=== PATIENT | male | born 1970 | race Caucasian/White ===

== ENCOUNTER 2017-04-08 14:28 | Inpatient (IN) | payer OTHER ==
[~2017-04-08] VITALS: Ht 177.8 cm; Wt 116.1 kg
[2017-04-08] MEDS ORDERED: IV NS 0.9% 1,000 ML ONE (14:46)
[2017-04-08] MEDS ORDERED: IV SET PRIMARY 1 EA INFUS.SET MC ONE (14:46)
[2017-04-08] MEDS ORDERED: IV NS 0.9% 1,000 ML BAG IV ONE (15:00)
--- NOTE | 2017-04-08 15:00 | NUR ---
PT BIB [facility] C/O ALTERED MENTAL STATUS AND POSSIBLE OD. PT NOW A/OX3, S/P NARCAN CLEANING MAID. DOES NOT THINK HE OD'D ON MEDS DESPITE PRESENTATION AND GOOD RESPONSE TO NARCAN. RESP EVEN UNLABORED. SKIN WARM NONDIAPHORETIC. ISIDRO LOWER LEGS EDEMATOUS, WEEPING SEROUS FLUID, REDDENED. IN ER BED 16 ON MONITOR.
[2017-04-08 15:02] LABS: BASOPHILS # (AUTO) 0.1 /CMM (0.0-0.2); BASOPHILS % (AUTO) 1.1 % (0.0-2.0); EOSINOPHILS % (AUTO) 0.1 % (0.0-6.0); HEMATOCRIT 37 % (39-51); LYMPHOCYTES # (AUTO) 0.5 /CMM (0.8-4.8); LYMPHOCYTES % (AUTO) 7.2 % (20.0-44.0); MEAN CORPUSCULAR HEMOGLOBIN 29 PG (26.0-33.0); MEAN CORPUSCULAR HGB CONC 33 g/dl (31.0-36.0); MEAN CORPUSCULAR VOLUME 87 fL (80-96); MONOCYTES # (AUTO) 0.1 /CMM (0.1-1.30); MONOCYTES % (AUTO) 1.6 % (2.0-12.0); NEUTROPHILS # (AUTO) 5.6 /CMM (1.8-8.9); PLATELET COUNT (AUTO) 211 /CMM (150-450); RED BLOOD CELL COUNT(AUTO) 4.22 MIL/uL (4.5-6.0); WHITE BLOOD COUNT (AUTO) 6.3 K/uL (4.3-11.0)
[2017-04-08 15:13] LABS: CALCIUM, SERUM 8.3 mg/dL (8.5-10.1); CREATININE 2.8 mg/dL (0.6-1.3); POTASSIUM 3.6 mmol/L (3.5-5.1)
[2017-04-08 15:20] LABS: INR 6.12 (0.87-1.13)
[2017-04-08 15:22] LABS: TROPONIN I 0.214 ng/mL (0.00-0.056)
[2017-04-08] MEDS ORDERED: FURO40TA5 PO (15:37)
[2017-04-08] MEDS ORDERED: CARV6.25 PO (15:37)
[2017-04-08] MEDS ORDERED: METO5TAB7 PO (15:37)
[2017-04-08] MEDS ORDERED: POTA20TA83 PO (15:37)
[2017-04-08] MEDS ORDERED: ASPI81TA2 PO (15:37)
[2017-04-08 15:46] LABS: ALBUMIN 2.6 g/dL (3.4-5.0); BILIRUBIN,DIRECT 1.3 mg/dL (0.0-0.2)
[2017-04-08] MEDS ORDERED: ASPIRIN 325 MG TABLET PO ONE (16:00)
[2017-04-08] MEDS ORDERED: NALOXONE HCL 0.4 MG/ML AMPUL IV ONE (16:00)
[2017-04-08] MEDS ORDERED: NALOXONE HCL 0.4 MG/ML AMPUL ONE (16:35)
[2017-04-08] MEDS ORDERED: ASPIRIN 325 MG TABLET ONE (16:35)
--- NOTE | 2017-04-08 16:40 | NUR ---
REPORT GIVEN TO THE PRIMARY CARE NURSE; CONTINUE PLAN OF CARE. ACCEPTED BY BEKAH NOVA; ASA AND NARCAN GIVEN. SWALLOW EVAL NOT DONE - LETHARGIC
--- NOTE | 2017-04-08 16:44 | NUR ---
NURSING BEDSIDE SWALLOW SCREENING PERFORMED. WITH PT SITTING STRAIGHT UP, PT IS ABLE TO SWALLOW LIQUIDS AND PILLS WITHOUT DIFFICULTY.
[2017-04-08] MEDS ORDERED: IV NS 0.9% 1,000 ML IV PRN ×2 (16:48→18:33)
--- NOTE | 2017-04-08 16:50 | NUR ---
MS MIR RN RECEIVED PT. FROM ER NURSE. PT. IS A/O X1-2. WILL BEGIN ADMISSION PROCESS AND AWAIT FURTHER ORDERS FROM THE MD
[2017-04-08] MEDS ORDERED: ONDANSETRON HCL/PF 4 MG/2 ML VIAL IVP PRN (17:00)
[2017-04-08] MEDS ORDERED: ZOLPIDEM TARTRATE 5 MG TABLET PO PRN (17:00)
[2017-04-08] MEDS ORDERED: MAG HYDROX/AL HYDROX/SIMETH 30 ML UDC PO PRN (17:00)
[2017-04-08] MEDS ORDERED: Z GUARD REMEDY 2 OZ OINT TP PRN (17:00)
[2017-04-08] MEDS ORDERED: MAGNESIUM HYDROXIDE 30 ML UDC PO PRN (17:00)
[2017-04-08] MEDS: PANTOPRAZOLE 40 MG TABLET.DR PO SCH (17:00)
[2017-04-08] MEDS ORDERED: IV SET PRIMARY PUMP SET 1 EA INFUS.SET MC ONE (17:27)
[2017-04-08 18:49] VITALS: BP 98/45
[2017-04-08] MEDS ORDERED: PHYTONADIONE 5 MG TABLET PO ONE (19:00)
--- NOTE | 2017-04-08 19:07 | NUR ---
MS RN CLOSING NOTES PT. REMAINS A/O X1-2. PT IS RESPONSIVE TO NAME AND TOUCH. IV PRESENT ON LEFT HAND 18 G PATENT AND INTACT INFUSING NS @ 125ML/HR. PT TOLERATING INFUSION WELL. PT IS ON 2 L VIA NC AND SATING WELL @ 98%. BREATHING IS EVEN AND UNLABORED. BED IN LOW LOCKED POSITION, SIDE RAILS UP X3, CALL LIGHT WITHIN REACH. BED ALARM ON. ALL NEEDS MET AND ANTICIPATED FOR. ALL ORDERS CARRIED OUT ACCORDINGLY. WILL ENDORSE TO NIGHTSHIFT NURSE FOR ANGUS
--- NOTE | 2017-04-08 19:30 | NUR ---
TELE/RN NOTES RECEIVED PT. LYING IN BED RESTING. PT. IS EASILY AROUSABLE TO NAME AND TOUCH. AWAKE, ALERT AND ORIENTED X 2. BREATHING EVEN AND UNLABORED ON 2LPM O2 VIA NC. NO SOB, RESPIRATORY DISTRESS OR COMPLAINTS OF PAIN NOTED AT THIS TIME. PT. WITH RIGHT HAND 18 GAUGE PERIPHERAL IV PRESENT, PATENT AND INTACT ADMINISTERING TO PT. NS @ 125 ML/HR. BED IN LOWEST POSITION, SIDE RAILS UP X3, CALL LIGHT WITHIN REACH, WILL CONTINUE TO MONITOR. Addendum: 04/08/17 at 2141 by MIKE SOLITARIO RN PT. WITH EXTERNAL B2B ACCOUNT EXECUTIVE PRESENT AND INTACT. CURRENT RHYTHM = SINUS TACHYCARDIA HR 105.
[2017-04-08 20:00] VITALS: BP 105/64
[2017-04-08] MEDS ORDERED: PHYTONADIONE INJ 10 MG/1 ML AMPUL SQ ONE (20:00)
[2017-04-08 20:30] LABS: SERUM AMMONIA 47 umol/L (11-32)
[2017-04-08 20:35] LABS: ACETAMINOPHEN 0 ug/ml (10-30)
--- NOTE | 2017-04-08 20:45 | NUR ---
TELE/RN NOTES PT. REFUSING LOMAX CATHETER INSERTION. PT. STATES "I DON'T NEED IT. I CAN USE A URINAL WHEN I NEED TO PEE, I DON'T WANT THAT THING INSIDE ME". EDUCATED PT. ON IMPORTANCE OF MONITORING INTAKE AND OUTPUT AND NEED FOR URINE SAMPLE FOR LABWORK. PT. CONTINUES TO REFUSE. WILL PROVIDE PT. WITH URINAL. WILL CONTINUE TO MONITOR.
[2017-04-09] VITALS: BP 112/68
--- NOTE | 2017-04-09 00:03 | NUR ---
TELE/RN NOTES NOTIFIED DR. SAVAGE PT. ELEVATED TROPONIN 0.339 AND ELEVATED AMMONIA 47. ALSO NOTIFIED MD THAT PT. REFUSING LOMAX CATHETER AND DUE TO PT. SCROTAL SWELLING UNABLE TO PLACE CONDOM CATHETER REMAIN UNABLE TO RETRIEVE URINE FOR DRUG SCREEN. IN ADDITION NOTIFIED DR. SAVAGE PT. MED RECON IS IN AND NOT REVIEWED BY AN MD. PER DR. SAVAGE NO NEW ORDERS AT THIS TIME, CONTINUE TO MONITOR. WILL CONTINUE TO MONITOR. Addendum: 04/09/17 at 0010 by MIKE SOLITARIO RN PT. IS IN STABLE CONDITION. SINUS RHYTHM HR 99. NO SOB, RESPIRATORY DISTRESS OR COMPLAINTS OF CHEST PAIN NOTED AT THIS TIME.
[2017-04-09 04:00] VITALS: BP 97/60
--- NOTE | 2017-04-09 06:48 | NUR ---
TELE/RN NOTES NOTIFIED DR. SAVAGE PT. IS VERY AGITATED AND NONCOMPLIANT. PT. THREATENING TO HURT STAFF. PT. TRYING TO GET OUT OF BED AND IS UNSTEADY. PER DR. SAVAGE NEW ORDER: PSYCH CONSULT. NO NEW MEDICATION ORDERS AT THIS TIME PT. IS NOT COMBATIVE AND MD DOES NOT WANT TO ORDER ANY MEDICATIONS BECAUSE PT. IS ASSUMED TO HAVE OVERDOSED ON DRUGS. PT. REMAINS UNABLE TO RETRIEVE URINE SAMPLE FOR DRUG SCREEN AT THIS TIME DUE TO PT. SCROTAL SWELLING. DR. SAVAGE AWARE. WILL CARRY OUT ORDER. WILL CONTINUE TO MONITOR.
--- NOTE | 2017-04-09 07:05 | NUR ---
TELE/RN NOTES PT. LYING IN BED RESTING. BREATHING EVEN AND UNLABORED ON 2LPM O2 VIA NC. NO SOB, RESPIRATORY DISTRESS OR COMPLAINTS OF PAIN NOTED AT THIS TIME. NO COMPLAINTS OF CHEST PAIN NOTED AT THIS TIME AND THROUGHOUT SHIFT. PT. WITH EXTERNAL COT ASSEMBLER PRESENT AND INTACT. CURRENT RHYTHM = SINUS TACHYCARDIA HR 101. PT. WITH RIGHT HAND 22 GAUGE PERIPHERAL IV PRESENT, PATENT AND INTACT ADMINISTERING TO PT. NS @ 125 ML/HR. ALL PT. NEEDS MET. PT. HAS BED IN LOWEST POSITION, SIDE RAILS UP X3, CALL LIGHT WITHIN REACH, WILL ENDORSE TO DAYSHIFT NURSE FOR CONTINUITY OF CARE.
--- NOTE | 2017-04-09 07:10 | NUR ---
FUNCTIONAL TESTER TYPEWRITERS NOTES PATIENT IN BED, ASLEEP BUT EASILY AROUSABLE, NO S/SX OF DISTRESS, NO EPISODE OF AGITATION AT THIS TIME, NO S/SX OF PAIN NOTED, SCROTAL SWELLING OBSERVED, PIV PATENT AND INTACT WITH NS RUNNING AT 125ML/HR, ALL NEEDS ATTENDED, CALL LIGHT WITHIN REACH, WILL CONTINUE TO MONITOR.
[2017-04-09] MEDS: PANTOPRAZOLE 40 MG TABLET.DR PO SCH (07:30)
[2017-04-09 08:00] VITALS: BP 122/75
[2017-04-09 08:52] LABS: ALBUMIN 2.5 g/dL (3.4-5.0); BILIRUBIN,TOTAL 3.6 mg/dL (0.2-1.0); CREATININE 2.9 mg/dL (0.6-1.3); MAGNESIUM 2.1 mg/dL (1.8-2.4); PHOSPHORUS 7.1 mg/dL (2.5-4.9); POTASSIUM 3.9 mmol/L (3.5-5.1); TOTAL PROTEIN, SERUM 6.2 g/dL (6.4-8.2)
[2017-04-09 08:56] LABS: BASOPHILS % (AUTO) 0.1 % (0.0-2.0); HEMATOCRIT 40 % (39-51); HEMOGLOBIN 12.9 g/dL (13.5-17.5); LYMPHOCYTES # (AUTO) 0.4 /CMM (0.8-4.8); LYMPHOCYTES % (AUTO) 8.3 % (20.0-44.0); MEAN CORPUSCULAR HEMOGLOBIN 29 PG (26.0-33.0); MEAN CORPUSCULAR HGB CONC 33 g/dl (31.0-36.0); MEAN CORPUSCULAR VOLUME 88 fL (80-96); MONOCYTES # (AUTO) 0.2 /CMM (0.1-1.30); MONOCYTES % (AUTO) 4.3 % (2.0-12.0); NEUTROPHILS % (AUTO) 87.3 % (43.0-81.0); PLATELET COUNT (AUTO) 229 /CMM (150-450); RDW COEFFICIENT OF VARIATION 17.5 (11.5-15.0); RED BLOOD CELL COUNT(AUTO) 4.53 MIL/uL (4.5-6.0); WHITE BLOOD COUNT (AUTO) 4.6 K/uL (4.3-11.0)
--- NOTE | 2017-04-09 09:00 | NUR ---
HOSPITAL RECEPTIONIST NOTES PATIENT WAS SEEN AND EXAMINED BY DR. GODFREY, LOMAX CATHETER INSERTED WITH YELLOW URINE OUTPUT, UA SAMPLE OBTAINED AND SENT TO LAB, PATIENT IS LETHARGIC, DR. GODFREY AND FAROOQ AWARE, VITAL SIGNS STABLE, RESPONSIVE TO VERBAL AND TACTILE STIMULI , PER DR. GODFREY D/C FLUIDS. ORDER NOTED AND CARRIED OUT, CALL LIGHT WITHIN REACH, WILL CONTINUE TO MONITOR.
[2017-04-09] MEDS: FUROSEMIDE 40 MG/4 ML VIAL IV SCH (09:24)
[2017-04-09 10:40] LABS: BAND % (MANUAL) 46 % (0.0-5.0); LYMPHOCYTES % (MANUAL) 9 % (16-48); METAMYELOCYTES % 4 % (0-0); MONOCYTES % (MANUAL) 6 % (0-11.0); MYELOCYTES % 10 % (0-0); NEUTROPHILS % (MANUAL) 25 (42-76)
[2017-04-09 12:12] VITALS: BP 105/61
[2017-04-09] MEDS: NALOXONE HCL 0.4 MG/ML AMPUL IV PRN (12:24)
[2017-04-09] MEDS ORDERED: LACTULOSE 10 G/15 ML UDC (PYXIS) PO PRN (12:30)
--- NOTE | 2017-04-09 12:30 | NUR ---
TRANSACTIONAL ATTORNEY NOTES PATIENT SEEN BY DR. WESTON AND INSTRUCTED TO GIVE NARCAN X1 DOSE NOW, PATIENT HAS A PRN ORDER. NARCAN GIVEN.
--- NOTE | 2017-04-09 13:44 | NUR ---
SUPERVISOR FORMING DEPARTMENT NOTES PATIENT IN BED, ALERT AND ORIENTED X3, VERBALLY RESPONSIVE, ASKING FOR NORCO FOR PAIN AND FOOD, PAGED DR. GODFREY AND RECEIVED A CALL BACK, RELAYED DR. KEENE'S MESSAGE, PATIENT IS ON ACUTE WITHDRAWAL AT THIS TIME, NO PSYCH MEDICATIONS ORDERED, PER DR. GODFREY OK, ORDERED REGULAR DIET, ORDER NOTED AND CARRIED OUT. CALL LIGHT WITHIN REACH, FLUIDS GIVEN, PER PATIENT HE IS THIRSTY, NEEDS ATTENDED AND MET, WILL CONTINUE TO MONITOR.
[2017-04-09 15:28] LABS: APPEARANCE,URINE CLEAR (CLEAR); BILIRUBIN,URINE NEGATIVE (NEGATIVE); BLOOD, URINE 3+ Ery/uL (NEGATIVE); COLOR,URINE YELLOW (YELLOW); KETONES,URINE NEGATIVE (NEGATIVE); LEUKOCYTE ESTERASE ,URINE NEGATIVE (NEGATIVE); NITRITE, URINE NEGATIVE (NEGATIVE); PH,URINE 5.5 (5.0-8.0); PROTEIN,URINE TRACE mg/dl (NEGATIVE); UGLUCOSE NEGATIVE (NEGATIVE); UROBILINOGEN,URINE 0.2 EU/dL (0.2)
[2017-04-09 15:38] LABS: CREATININE, URINE 69.3 MG/DL (30.0-125.0); URINE SODIUM, RANDOM < 5 mmol/l (40-220); URINE TOTAL PROTEIN 53.9 mg/dL (0-11.9)
[2017-04-09 15:40] LABS: BACTERIA,URINE None seen /HPF (None Seen); SQUAMOUS EPITHELIAL CELL,UR Few /HPF (None Seen); WBC,URINE 0-2 /HPF (0-3)
[2017-04-09 16:00] VITALS: BP 96/64
--- NOTE | 2017-04-09 19:00 | NUR ---
BOILING OFF WINDER NOTES PATIENT IS INTERMITTENTLY SLEEPING, AROUSABLE TO NAME AND TOUCH, PATIENT REFUSED ADL CARE, REFUSED TO MOVE LEGS, PATIENT IS SCREAMING "LEAVE ME ALONE, LEAVE ME ALONE,' CHARGE NURSE MADE AWARE, PATIENT IS CURRENTLY ON O2 AT 5LPM VIA NC, SPO2 92-93%, HEAD OF BED ELEVATED, PATIENT IS A MOUTH BREATHER AND WOULD ENCOURAGE PATIENT TO TAKE DEEP BREATHS THROUGH THE NOSE, ALSO TRIED TO CHANGE TO A SIMPLE MASK BUT PATIENT WOULD REMOVE THE MASK, NO SHORTNESS OF BREATH NOTED, CALL LIGHT WITHIN REACH, WILL ENDORSE TO PATIENT ACCESS COORDINATOR FOR ANGUS.
--- NOTE | 2017-04-09 19:30 | NUR ---
RN OPEN NOTES RECEIVED PATIENT RESTING IN BED, EASILY AROUSABLE TO NAME. A/O X2. NO SIGNS OF DISTRESS OR DISCOMFORT. ON 5LPM O2 VIA NC AND SATING 98%, PATIENT IS REFUSING SIMPLE MASK. IV ACCESS IN R HAND PATENT AND INTACT, NO SIGNS OF REDNESS OR INFILTRATION. ON TELE MONITORING WITH ST 102 NOTED. BED IN LOW LOCKED POSITION WITH SIDE RAILS X3. CALL LIGHT WITHIN REACH. WILL CONTINUE TO MONITOR. Addendum: 04/09/17 at 2302 by KYAW DECKER RN PATIENT HAS F/C INTACT, WITH CLEAR OUSMANE FLUID NOTED.
[2017-04-09 20:00] VITALS: BP 100/58
[2017-04-09 20:41] LABS: EOSINOPHIL,URINE None Seen
[2017-04-10] VITALS (8 sets, daily range): BP systolic 90–115; BP diastolic 50–65
[2017-04-10 07:16] LABS: EOSINOPHILS % (AUTO) 0.1 % (0.0-6.0); HEMATOCRIT 35 % (39-51); HEMOGLOBIN 11.5 g/dL (13.5-17.5); LYMPHOCYTES # (AUTO) 0.2 /CMM (0.8-4.8); LYMPHOCYTES % (AUTO) 5.7 % (20.0-44.0); MEAN CORPUSCULAR HEMOGLOBIN 29 PG (26.0-33.0); MEAN CORPUSCULAR HGB CONC 33 g/dl (31.0-36.0); MEAN CORPUSCULAR VOLUME 88 fL (80-96); MONOCYTES # (AUTO) 0.1 /CMM (0.1-1.30); MONOCYTES % (AUTO) 1.6 % (2.0-12.0); NEUTROPHILS # (AUTO) 3.5 /CMM (1.8-8.9); NEUTROPHILS % (AUTO) 92.6 % (43.0-81.0); PLATELET COUNT (AUTO) 170 /CMM (150-450); RDW COEFFICIENT OF VARIATION 17.5 (11.5-15.0); WHITE BLOOD COUNT (AUTO) 3.8 K/uL (4.3-11.0)
--- NOTE | 2017-04-10 07:23 | NUR ---
RN CLOSING NOTES PATIENT AWAKE IN BED. A/O X2. NO SIGNS OF DISTRESS OR DISCOMFORT. ON 5LPM O2 VIA NC AND SATING 98%, PATIENT IS REFUSING SIMPLE MASK. IV ACCESS IN R HAND PATENT AND INTACT, NO SIGNS OF REDNESS OR INFILTRATION. ON TELE MONITORING WITH SR 98 NOTED. ALL NEEDS MET. NO SIGNIFICANT CHANGES THROUGH THE NIGHT. BED IN LOW LOCKED POSITION WITH SIDE RAILS X3. CALL LIGHT WITHIN REACH. ENDORSED TO AM SHIFT FOR ANGUS.
[2017-04-10 07:36] LABS: APPEARANCE,URINE CLEAR (CLEAR); BILIRUBIN,URINE 1+ (NEGATIVE); BLOOD, URINE 3+ Ery/uL (NEGATIVE); COLOR,URINE YELLOW (YELLOW); KETONES,URINE NEGATIVE (NEGATIVE); LEUKOCYTE ESTERASE ,URINE NEGATIVE (NEGATIVE); NITRITE, URINE NEGATIVE (NEGATIVE); PROTEIN,URINE TRACE mg/dl (NEGATIVE); UGLUCOSE NEGATIVE (NEGATIVE)
--- NOTE | 2017-04-10 07:50 | NUR ---
TAX PROCESSOR NOTES PATIENT IN BED, AWAKE AND ALERT, SCREAMING HE WANTS TO GO TO THE RESTROOM, WAS OFFERED A BEDPAN BUT REFUSES, PATIENT IS INSISTING OF AMBULATING BUT PATIENT IS STILL GROGGY, ENCOURAGED PATIENT TO USE BEDPAN FOR SAFETY REASONS, HIS LEGS ARE TOO WEAK, PATIENT THEN WENT BACK TO SLEEP, SAFETY MEASURES IN PLACED, CALL LIGHT WITHIN REACH, WILL CONTINUE TO MONITOR.
[2017-04-10 07:58] LABS: CREATININE, URINE 65.2 MG/DL (30.0-125.0); URINE SODIUM, RANDOM < 5 mmol/l (40-220)
[2017-04-10 08:08] LABS: BACTERIA,URINE Rare /HPF (None Seen); SQUAMOUS EPITHELIAL CELL,UR Rare /HPF (None Seen); WBC,URINE 0-2 /HPF (0-3)
[2017-04-10] MEDS: FUROSEMIDE 40 MG/4 ML VIAL IV SCH (08:32)
[2017-04-10] MEDS: PANTOPRAZOLE 40 MG TABLET.DR PO SCH (08:32)
[2017-04-10 09:00] LABS: ALBUMIN 1.9 g/dL (3.4-5.0); CREATININE 1.9 mg/dL (0.6-1.3); MAGNESIUM 2.2 mg/dL (1.8-2.4); PHOSPHORUS 4.5 mg/dL (2.5-4.9); TOTAL PROTEIN, SERUM 5.5 g/dL (6.4-8.2)
[2017-04-10] MEDS ORDERED: CLONIDINE HCL 0.1 MG TABLET PO PRN (09:00)
[2017-04-10] MEDS ORDERED: FEE PK DOSING 1 MIN EA MC ONE (10:57)
[2017-04-10] MEDS ORDERED: VANCOMYCIN 1.25 GM in IV D5W 500 ML IV SCH (11:00)
[2017-04-10] MEDS ORDERED: SECONDARY IV SET 1 EA INFUS.SET MC ONE (11:07)
--- NOTE | 2017-04-10 12:00 | NUR ---
TEXTILE MACHINE MECHANIC NOTES PATIENT SEEN BY DR. KEENE, RECEIVED NEW ORDERS, ORDERS NOTED AND CARRIED OUT, PATIENT IS INTERMITTENTLY SLEEPING AND SCREAMING, ASKING FOR WATER, AND REPOSITIONING, BUT WHEN PATIENT WILL BE TURNED, HE WOULD CURSE AT STAFF AND REFUSES TO MOVE LEGS. O2 AT 5LPM VIA NC, OBSERVED TO BE REMOVING NASAL CANNULA AT TIMES, RE-EDUCATED, EXPLAINED RISKS AND BENEFITS, PER PATIENT, "I DONT CARE". ALL NEEDS ATTENDED, CALL LIGHT WITHIN REACH, WILL CONTINUE TO MONITOR.
[2017-04-10 12:24] LABS: CREATINE KINASE MB 59.8 ng/mL (0-3.6)
[2017-04-10 12:59] LABS: BAND % (MANUAL) 30 % (0.0-5.0); LYMPHOCYTES % (MANUAL) 9 % (16-48); METAMYELOCYTES % 2 % (0-0); MONOCYTES % (MANUAL) 3 % (0-11.0); MYELOCYTES % 3 % (0-0); NEUTROPHILS % (MANUAL) 53 (42-76)
[2017-04-10 13:07] LABS: IMMUNOGLOBULIN A, SERUM 242 mg/dL (90-386); IMMUNOGLOBULIN G, SERUM 964 mg/dL (700-1600); IMMUNOGLOBULIN M, SERUM 50 mg/dL (20-172)
[2017-04-10 13:51] LABS: EOSINOPHIL,URINE None Seen
--- NOTE | 2017-04-10 14:30 | NUR ---
MECHANIC CHIEF NOTES PATIENT SEEN BY DR. WESTON, WANTS TO RELAY TO DR. GODFREY, SHE RECOMMENDS IV FLUIDS DUE TO ELEVATED TOTAL CK AND CKMB, ALSO RECOMMENDING TO GIVE NARCAN X1 NOW, PAGED DR. GODFREY, WAITING FOR A CALL BACK.
[2017-04-10] MEDS: SOD FERRIC GLUC 125 MG in IV NS 0.9% 100 ML IV SCH (14:33)
[2017-04-10] MEDS ORDERED: LACTULOSE 10 G/15 ML UDC (PYXIS) PO PRN (15:00)
--- NOTE | 2017-04-10 15:38 | NUR ---
RUG DYER HELPER NOTES RECEIVED A CALL FROM DR. GODFREY, RELAYED DR. WESTON'S MESSAGE OF RECOMMENDATION FOR IV FLUIDS, PER DR. GODFREY PATIENT HAS CHF, NO FLUIDS ORDERED AT THIS TIME, AND STATED ITS OK TO GIVE NARCAN, IF DR. WESTON RECOMMENDED IT.
[2017-04-10 16:08] LABS: INR 1.52 (0.87-1.13); PROTHROMBIN TIME 16.7 SECS (9.5-12.7)
--- NOTE | 2017-04-10 16:09 | NUR ---
BREAKFAST MANAGER NOTES RELAYED LACTIC ACID RESULT TO DR. WESTON, PER MD, WAIT FOR CHEST X-RAY RESULT THEN CALL ME BACK, AND CALL DR. GODFREY LATER TOO.
[2017-04-10] MEDS: NALOXONE HCL 0.4 MG/ML AMPUL IV PRN (16:36)
--- NOTE | 2017-04-10 18:28 | NUR ---
EXPORT SPECIALIST NOTES CALLED DR. WESTON AND RELAYED LACTIC ACID RESULT AND CHEST X-RAY RESULT, NO NEW ORDER AT THIS TIME. PATIENT IN BED, INTERMITTENTLY SLEEPING, REMOVES NASAL CANNULA, NO S/SX OF SOB OR DISTRESS NOTED, EXPLAINED RISKS AND BENEFITS, REFUSES ADL CARE, WILL OFFER AGAIN, EXPLAINED RISKS AND BENEFITS FOR SKIN MANAGEMENT, PIV ON RIGHT HAND PATENT AND INTACT, SAFETY MEASURES IN PLACED, CALL LIGHT WITHIN REACH, WILL CONTINUE TO MONITOR.
--- NOTE | 2017-04-10 19:20 | NUR ---
RN OPEN NOTES RECEIVED PATIENT RESTING IN BED, EASILY AROUSABLE TO NAME. A/O X2. NO SIGNS OF DISTRESS OR DISCOMFORT. ON 5LPM O2 VIA NC AND SATING WELL. IV ACCESS IN R HAND PATENT AND INTACT, NO SIGNS OF REDNESS OR INFILTRATION. ON TELE MONITORING WITH ST105 NOTED. HAS F/C INTACT AND PATENT WITH CLEAR OUSMANE FLUID NOTED. BED IN LOW LOCKED POSITION WITH SIDE RAILS X3. CALL LIGHT WITHIN REACH. WILL CONTINUE TO MONITOR.
--- NOTE | 2017-04-10 19:47 | NUR ---
RN NOTES DR. SAVAGE PAGED REGARDING CRITICAL LAB VALUE. AWAITING CALL BACK. WILL CONTINUE TO MONITOR.
--- NOTE | 2017-04-10 20:05 | NUR ---
RN NOTES INFORMED DR. SAVAGE OF CRITICAL LAB VALUE, LACTIC ACID 2.7. NEW ORDERS GIVEN. WILL CARRYOUT AND CONTINUE TO MONITOR.
[2017-04-10] MEDS ORDERED: IV NS 0.9% 1,000 ML IV ONE (20:30)
[2017-04-10] MEDS: QUETIAPINE FUMARATE 25 MG TABLET PO PRN (20:44)
[2017-04-10] MEDS: MUPIROCIN OINT 2% 22 GM TUBE SCH (21:31)
[2017-04-10] MEDS ORDERED: PIPERACILLIN /TAZOBACTAM 3.375 G VIAL IV ONE (21:56)
[2017-04-10] MEDS ORDERED: IV D5W 50 ML IV ONE (21:57)
[2017-04-10] MEDS ORDERED: IV NS 0.9% 1,000 ML BAG IV PRN (22:00)
[2017-04-10] MEDS ORDERED: PIPERACILLIN /TAZOBACTAM 3.375 G in IV D5W 50 ML IV SCH (22:00)
[2017-04-10] MEDS ORDERED: HEPARIN SODIUM, PORCINE 5000 UNITS/1 ML VIAL SQ SCH (23:30)
[2017-04-11] VITALS (7 sets, daily range): BP systolic 90–100; BP diastolic 50–61
[2017-04-11] MEDS ORDERED: SECONDARY IV SET 1 EA INFUS.SET MC ONE ×2 (00:33→14:27)
[2017-04-11] MEDS ORDERED: IV NS 0.9% 1,000 ML ONE ×2 (00:48→03:03)
--- NOTE | 2017-04-11 02:50 | NUR ---
RN NOTES INFORMED DR. SAVAGE OF CRITICAL LAB VALUE, LACTIC ACID 3.0. NEW ORDERS GIVEN. WILL CARRYOUT AND CONTINUE TO MONITOR.
[2017-04-11] MEDS: QUETIAPINE FUMARATE 25 MG TABLET PO PRN ×2 (02:58→19:56)
[2017-04-11] MEDS ORDERED: IV NS 0.9% 1,000 ML IV ONE (03:00)
[2017-04-11] MEDS: VANCOMYCIN 1.25 GM in IV D5W 500 ML IV SCH ×2 (05:47→23:19)
--- NOTE | 2017-04-11 07:15 | NUR ---
hospital secretary initial notes Received patient in bed, awake, head of bed elevated, no SOB or distress noted. on room air saturation of 92%. Sitter at bedside for constant monitoring. IV intact and patent with IVF infusing well. Aquino in placed attached to drainage bag. On tele monitor ST heart rate of 107. Alert and oriented x 1, with confusion. Isolation for MRSA nares. Kept patient clean and comfortable in bed, call light with in patient reach, will continue to monitor accordingly.
--- NOTE | 2017-04-11 07:29 | NUR ---
RN CLOSING NOTES PATIENT RESTING IN BED EASILY AROUSABLE TO NAME. A/O X2. NO SIGNS OF DISTRESS OR DISCOMFORT. ON 5LPM O2 VIA NC AND SATING 98%, PATIENT IS REFUSING SIMPLE MASK. IV ACCESS IN R HAND WITH VANCO CURRENTLY INFUSING PATENT AND INTACT, NO SIGNS OF REDNESS OR INFILTRATION. ON TELE MONITORING WITH ST 106 NOTED. HAS F/C INTACT, WITH CLEAR OUSMANE FLUID NOTED. ALL NEEDS MET. NO SIGNIFICANT CHANGES THROUGH THE NIGHT. BED IN LOW LOCKED POSITION WITH SIDE RAILS X3. CALL LIGHT WITHIN REACH. ENDORSED TO AM SHIFT FOR ANGUS.
[2017-04-11 08:07] LABS: ALBUMIN 1.6 g/dL (3.4-5.0); BILIRUBIN,DIRECT 3.2 mg/dL (0.0-0.2); BILIRUBIN,TOTAL 4.7 mg/dL (0.2-1.0); CALCIUM, SERUM 7.9 mg/dL (8.5-10.1); CREATININE 1.4 mg/dL (0.6-1.3); POTASSIUM 3.8 mmol/L (3.5-5.1); TOTAL PROTEIN, SERUM 5.2 g/dL (6.4-8.2)
[2017-04-11 08:14] LABS: INR 1.35 (0.87-1.13); PROTHROMBIN TIME 14.7 SECS (9.5-12.7)
[2017-04-11] MEDS ORDERED: IV NS 0.9% 1,000 ML IV PRN (08:30)
[2017-04-11] MEDS ORDERED: PIPERACILLIN /TAZOBACTAM 3.375 G in IV D5W 50 ML IV SCH (09:00)
--- NOTE | 2017-04-11 09:00 | NUR ---
process treater notes Informed Dr. Gonzales regarding patient BP 90/61 and made aware of patient getting scheduled lasix IVP and per MD to hold medication. All orders carried out and noted. Will continue to monitor patient accordingly.
[2017-04-11] MEDS: MUPIROCIN OINT 2% 22 GM TUBE SCH ×2 (09:32→20:32)
[2017-04-11] MEDS: PANTOPRAZOLE 40 MG TABLET.DR PO SCH (09:32)
[2017-04-11] MEDS: FUROSEMIDE 40 MG/4 ML VIAL IV SCH (09:32)
[2017-04-11 10:33] LABS: *SPE A/G RATIO 0.9 (0.7-1.7); *SPE ALBUMIN 2.8 g/dL (2.9-4.4); *SPE ALPHA-1-GLOBULIN 0.4 g/dL (0.0-0.4); *SPE ALPHA-2-GLOBULIN 0.8 g/dL (0.4-1.0); *SPE GLOBULIN, TOTAL 3.2 g/dL (2.2-3.9); *SPE M-SPIKE Not Observed g/dL (Not Observed)
[2017-04-11] MEDS: PIPERACILLIN /TAZOBACTAM 3.375 G in IV D5W 50 ML IV SCH ×2 (12:14→18:22)
[2017-04-11] MEDS: SOD FERRIC GLUC 125 MG in IV NS 0.9% 100 ML IV SCH (14:24)
[2017-04-11 15:37] LABS: EOSINOPHILS # (AUTO) 0.1 /CMM (0.0-0.7); EOSINOPHILS % (AUTO) 0.6 % (0.0-6.0); HEMATOCRIT 31 % (39-51); HEMOGLOBIN 10.4 g/dL (13.5-17.5); LYMPHOCYTES # (AUTO) 0.3 /CMM (0.8-4.8); LYMPHOCYTES % (AUTO) 3.7 % (20.0-44.0); MEAN CORPUSCULAR HEMOGLOBIN 28 PG (26.0-33.0); MEAN CORPUSCULAR HGB CONC 33 g/dl (31.0-36.0); MEAN CORPUSCULAR VOLUME 85 fL (80-96); MONOCYTES # (AUTO) 0.3 /CMM (0.1-1.30); MONOCYTES % (AUTO) 3.2 % (2.0-12.0); NEUTROPHILS % (AUTO) 92.5 % (43.0-81.0); PLATELET COUNT (AUTO) 161 /CMM (150-450); RED BLOOD CELL COUNT(AUTO) 3.69 MIL/uL (4.5-6.0); WHITE BLOOD COUNT (AUTO) 8.7 K/uL (4.3-11.0)
[2017-04-11 15:58] LABS: ALBUMIN 1.7 g/dL (3.4-5.0); BILIRUBIN,TOTAL 4.8 mg/dL (0.2-1.0); CALCIUM, SERUM 7.9 mg/dL (8.5-10.1); CREATININE 1.4 mg/dL (0.6-1.3); POTASSIUM 3.3 mmol/L (3.5-5.1); TOTAL PROTEIN, SERUM 5.4 g/dL (6.4-8.2)
[2017-04-11 16:19] LABS: BAND % (MANUAL) 34 % (0.0-5.0); EOSINOPHILS % (MANUAL) 1 % (0-4); LYMPHOCYTES % (MANUAL) 11 % (16-48); METAMYELOCYTES % 1 % (0-0); MONOCYTES % (MANUAL) 8 % (0-11.0); MYELOCYTES % 1 % (0-0); NEUTROPHILS % (MANUAL) 44 (42-76)
[2017-04-11] MEDS ORDERED: POTASSIUM CHLORIDE 20 MEQ TAB.PRT.SR PO ONE (19:00)
--- NOTE | 2017-04-11 19:19 | NUR ---
research investigator closing notes All needs provided, attended, and anticipated. Kept patient clean and comfortable in bed, call light with in patient reach, on tele monitor Afib heart rate of 94, no complaint of pain or discomfort noted. Sitter at bedside for constant monitoring. Endorsed to next shift RN to continue care.
--- NOTE | 2017-04-11 19:30 | NUR ---
TELE INSOLE AND HEEL STIFFENER INITIAL NOTES RECEIVED PT IN BED SCREAMING ON AND OFF TRIED TO GET UP , SPOKE TO HIM AND TRIED TO RE-ORIENTED HIM WHERE HE AT. NO SIGNS OF ANY ACUTE DISTRESS BUT NOTICED HE'S ALWAYS TOUCHING AND HOLDING HIS SWOLLEN SCROTUM. I ASKED HIM IF HE'S ON PAIN HE SHOUTED "YES". HE'S ON IVF NS AT 75ML/HR ON HIS RIGHT HAND AND LOMAX TO GRAVITY. TELE SINUS TACH HEART RATE 112 PER MONITOR. KEPT HIM SAFE AND COMFORTABLE AT ALL TIMES. FALL AND ISOLATION PRECAUTION IMPLEMENTED AND OBSERVED. WILL CONTINUE TO MONITOR.
[2017-04-11] MEDS: ACETAMINOPHEN 325 MG TABLET PO PRN (20:00)
--- NOTE | 2017-04-11 20:00 | NUR ---
CONTRACT CONSULTANT/NOTES TYLENOL 650 MG PO GIVEN FOR HIS PAIN AND SEROQUEL TO CALMED HIM DOWN. PT TOLERATED WELL NO ASPIRATION NOTED. SPONGES BATH ALSO RENDERED WITH THE HELPED OF ANOTHER INSOLE ROUNDER FOR PT SAFETY AND KEPT HIM COMFORTABLE AT ALL TIMES. WILL CONTINUE TO MONITOR.
[2017-04-11] MEDS: HEPARIN SODIUM, PORCINE 5000 UNITS/1 ML VIAL SQ SCH (20:35)
[2017-04-11] MEDS: LORAZEPAM 1 MG TABLET PO PRN (21:47)
--- NOTE | 2017-04-11 21:47 | NUR ---
CODING TEAM LEAD NOTES PT AWAKE AND VERY ANXIOUS ATIVAN GIVEN PO ORDERED. SAFETY PRECAUTION OBSERVED.
[2017-04-12] VITALS (29 sets, daily range): BP systolic 79–119; BP diastolic 39–75
[2017-04-12] MEDS: PIPERACILLIN /TAZOBACTAM 3.375 G in IV D5W 50 ML IV SCH ×5 (01:08→23:37)
--- NOTE | 2017-04-12 01:40 | NUR ---
TELE PERFORMING ARTS TECHNICIANS /NOTES PT NOTICED O2 SAT DROPS TO 87-80 EVEN PT PLACED IN A SIMPLE MASK. AND ALSO NOTICED HE BREATH LARS HIS MOUTH AND SEEMS HE'S HAVING SLEEP APNEA. CALLED DR SAVAGE AND TOLD HIM THE SITUATION OF THE PT AND HE ORDERED ABG STAT . WAITING FOR THE RESULT.
[2017-04-12 02:19] LABS: ABG BASE EXCESS -3.2 mmol/L; ABG OXYGEN SATURATION 77.1 % (92.0-98.5); ABG PCO2 46.1 mmHg (35.0-45.0); ABG PH 7.316 (7.350-7.450); ABG PO2 46.8 mmHg (75.0-100.0); AaDO2 185.4 mmHg; COHb 1.4 % (0.5-1.5); MetHb 0.9 % (0.0-1.5); O2Hb 75.3 % (94.0-97.0); SITE, ABG Right Brachial; VENT MODE, BG N/C
--- NOTE | 2017-04-12 02:20 | NUR ---
PROCESS CONTROL TECH/NOTES GOT CALLED FROM RT REGARDING ABG RESULT. 02 SAT 77.1 AND PO2 46.8, PH 7.31, CO2 46.1 AND BICARB 23.0.
--- NOTE | 2017-04-12 02:22 | NUR ---
WAREHOUSING TECHNICIAN/NOTES' SPOKE TO DR SAVAGE REGARDING ABG RESULT. HE ORDERED PUT PT IN NON-REBREATHER MASK AND MONITORING HIM . I ALSO ASKED HIM IF POSSIBLE PUT PT ON RESTRAINT FOR HIS SAFETY AND AT THE SAME TIME TO CONTROL THE PT FROM REMOVING HIS IV LINE AND O2 AND AT THE SAME TIME PT NON-COMPLIANT WITH SAFETY INSTRUCTION. TELE SINUS TACH AT THIS TIME.
--- NOTE | 2017-04-12 04:28 | NUR ---
CHILLER TENDER/NOTES PT SLEEPING COMFORTABLY IN BED WITHOUT ANY ACUTE DISTRESS NOTED, STILL WITH O2 VIA SIMPLE MASK 90% O2 SAT AT 5LITERS. IVF STILL INFUSING KEPT HIM SAFE AT ALL TIMES. WILL CONTINUE TO MONITOR.
--- NOTE | 2017-04-12 07:12 | NUR ---
TELE DECKHAND FISHING VESSEL CLOSING NOTES PT RESTING AT THIS TIME WITH EYES CLOSED BUT AROUSES AND MOVED HIS HEAD TURNING SIDE TO SIDE TO REMOVED HIS MASK. NO SIGNS OF ANY ACUTE DISTRESS RIGHT NOW. O2 SAT 95 % WITH 5 LITERS O2 VIA MASK. SPONGES BATH ALSO RENDERED AND SKIN ALSO APPLIED SOME Z-GUARD.PT STILL ON BILATERAL SOFT WRIST RESTRAINT , PULSE PRESENT AND SKIN WARM TO TOUCH. TELE SINUS RHYTHM PER MONITOR. KEPT HIM WARM AND COMFORTABLE AT ALL TIMES. SITTER AT THE BEDSIDE FOR SAFETY. ENDORSE TO AM NURSE NERI/RN FOR CONTINUITY OF CARE.
[2017-04-12 07:20] LABS: EOSINOPHILS # (AUTO) 0.1 /CMM (0.0-0.7); EOSINOPHILS % (AUTO) 0.6 % (0.0-6.0); HEMATOCRIT 36 % (39-51); HEMOGLOBIN 11.6 g/dL (13.5-17.5); LYMPHOCYTES # (AUTO) 0.4 /CMM (0.8-4.8); LYMPHOCYTES % (AUTO) 3.4 % (20.0-44.0); MEAN CORPUSCULAR HEMOGLOBIN 28 PG (26.0-33.0); MEAN CORPUSCULAR HGB CONC 32 g/dl (31.0-36.0); MEAN CORPUSCULAR VOLUME 87 fL (80-96); MONOCYTES # (AUTO) 0.1 /CMM (0.1-1.30); NEUTROPHILS # (AUTO) 10.6 /CMM (1.8-8.9); PLATELET COUNT (AUTO) 153 /CMM (150-450); RDW COEFFICIENT OF VARIATION 18.7 (11.5-15.0); RED BLOOD CELL COUNT(AUTO) 4.09 MIL/uL (4.5-6.0); WHITE BLOOD COUNT (AUTO) 11.2 K/uL (4.3-11.0)
[2017-04-12] MEDS: PANTOPRAZOLE 40 MG TABLET.DR PO SCH (07:30)
[2017-04-12 07:41] LABS: ALBUMIN 1.8 g/dL (3.4-5.0); BILIRUBIN,DIRECT 4.4 mg/dL (0.0-0.2); BILIRUBIN,TOTAL 5.8 mg/dL (0.2-1.0); CALCIUM, SERUM 8.1 mg/dL (8.5-10.1); CREATININE 1.4 mg/dL (0.6-1.3); MAGNESIUM 2.2 mg/dL (1.8-2.4); PHOSPHORUS 3.6 mg/dL (2.5-4.9); TOTAL PROTEIN, SERUM 5.9 g/dL (6.4-8.2)
--- NOTE | 2017-04-12 08:01 | NUR ---
icu clerk received pt in bed on mask o2 sat 95% pt confused openes eyes, pt is breathing close to 40s shallow, st on monitor hr 110s sbp stable, abd disteneded with active bowl sounds, pt has bhatia draining urine, iv access patnet infusing fluids, released restraints checked for circulation and skin breakdown, provided rom, pt still trying to remove medical managment reaching for iv and removing mask, sitter 1:1 at bedside, call light w/ in reach bed lowest position pt has bed alarm on, ordered stat abg and cxr ammonia level as pt is having respiratory distress, called rt and radiology to inform regarding stat orders, will follow up with labs and notify md.
[2017-04-12 08:10] LABS: *SPE A/G RATIO 0.9 (0.7-1.7); *SPE ALBUMIN 2.2 g/dL (2.9-4.4); *SPE ALPHA-1-GLOBULIN 0.4 g/dL (0.0-0.4); *SPE ALPHA-2-GLOBULIN 0.7 g/dL (0.4-1.0); *SPE BETA GLOBULIN 0.7 g/dL (0.7-1.3); *SPE GLOBULIN, TOTAL 2.5 g/dL (2.2-3.9); *SPE M-SPIKE Not Observed g/dL (Not Observed); *SPE PROTEIN TOTAL 4.7 g/dL (6.0-8.5); *SPEGAMMA GLOBULIN 0.7 g/dL (0.4-1.8)
[2017-04-12 08:15] LABS: CREATINE KINASE MB 6.7 ng/mL (0-3.6)
[2017-04-12 08:28] LABS: ABG BASE EXCESS -3.6 mmol/L; ABG OXYGEN SATURATION 93.2 % (92.0-98.5); ABG PCO2 53.8 mmHg (35.0-45.0); ABG PH 7.265 (7.350-7.450); ABG PO2 78.5 mmHg (75.0-100.0); AaDO2 290.1 mmHg; COHb 1.4 % (0.5-1.5); MetHb 0.7 % (0.0-1.5); O2Hb 91.2 % (94.0-97.0); SITE, ABG Right Radial; VENT MODE, BG SIMPLE MASK
[2017-04-12] MEDS: MUPIROCIN OINT 2% 22 GM TUBE SCH ×2 (09:00→21:30)
[2017-04-12] MEDS: FUROSEMIDE 40 MG/4 ML VIAL IV SCH (09:00)
[2017-04-12] MEDS: HEPARIN SODIUM, PORCINE 5000 UNITS/1 ML VIAL SQ SCH ×2 (09:00→20:53)
--- NOTE | 2017-04-12 09:00 | NUR ---
UPHOLSTERER LIMOUSINE AND HEARSE ABG RESULTS READ MD GODFREY NOTIFIED ORDERS RECEIVED TO TRANSFER TO ICU BIPAP REPORT GIVEN TO LELE RN PT TRANSFERED TO ICU NOT STABLE.
[2017-04-12] MEDS: NALOXONE HCL 0.4 MG/ML AMPUL IV PRN (09:05)
[2017-04-12] MEDS ORDERED: IV SET PRIMARY PUMP SET 1 EA INFUS.SET MC ONE (09:11)
[2017-04-12] MEDS ORDERED: IV NS 0.9% 1,000 ML IV PRN (09:14)
[2017-04-12] MEDS ORDERED: NALOXONE PREFILLED SYRINGE 2 MG/2 ML SYRINGE IV ONE (09:30)
[2017-04-12] MEDS ORDERED: NOREPINEPHRINE 16 MG in IV D5W 500 ML IV PRN (09:30)
[2017-04-12 09:36] LABS: BAND % (MANUAL) 31 % (0.0-5.0); LYMPHOCYTES % (MANUAL) 5 % (16-48); MONOCYTES % (MANUAL) 3 % (0-11.0); NEUTROPHILS % (MANUAL) 61 (42-76)
--- NOTE | 2017-04-12 10:00 | NUR ---
ICU/RN: PT TRANSFERRED FROM FOR DISTRESS AND NEED OF BIPAP. PT LETHARGIC, PRN DOSE OF NARCAN ADMINISTERED. BP DROPPING, ORDERS FOR LEVOPHED RECEIVED AND ORDERS FOR PICC LINE PLACED, CONSENT PENDING. NO FAMILY NOTED, EMERGENCY CONSENT SIGHED BY MD. PT ON BILATERAL WRIST RESTRAINTS, DUE TO PULLING OUT LINES. PT TURNED AND REPOSITIONED, ALL NEEDS WILL BE ATTENDED TO. SAFETY MEASURES TAKEN
--- NOTE | 2017-04-12 12:00 | NUR ---
ICU/RN: MARLENY PARHAM AT BEDSIDE, PICC LINE INSERTED WITH EMERGENCY CONSENT SIGHED BY MD. NO S/S OF BLEEDING NOTED, LEVOPHED INFUSING FOR BP SUPPORT
[2017-04-12 12:15] LABS: PTH, INTACT 38 pg/mL (15-65)
[2017-04-12 12:32] LABS: ABG OXYGEN SATURATION 98.7 % (92.0-98.5); ABG PCO2 30.4 mmHg (35.0-45.0); ABG PH 7.474 (7.350-7.450); ABG PO2 158.5 mmHg (75.0-100.0); AaDO2 163.8 mmHg; COHb 1.5 % (0.5-1.5); O2Hb 96.2 % (94.0-97.0); PEEP,BG 5 cm H2O; SITE, ABG Right Brachial
--- NOTE | 2017-04-12 13:16 | NUR ---
Social service consult for overdose. Pt. is altered and disoriented at this time. SW to follow up tomorrow to reassess pt.
[2017-04-12] MEDS: SOD FERRIC GLUC 125 MG in IV NS 0.9% 100 ML IV SCH (16:53)
[2017-04-12] MEDS: VANCOMYCIN 1.25 GM in IV D5W 500 ML IV SCH (17:52)
--- NOTE | 2017-04-12 19:23 | NUR ---
ICU/RN ENDING NOTES,AM REPORT ENDORSED TO NIGHT NURSE FOR CONTINUATION OF CARE. PT NOW OFF BIPAP, ON NASAL CANULA, TOLERATING WELL,NO DISTRESS NOTED. ALL NEEDS ATTENDED TO, PT TURNED AND REPOSITIONED Q 2 HOURS AND NEEDED. SKIN CARE DONE ORDERED. SAFETY MEASURES TAKEN, BED IN LOW POSITION, SIDE RAILS UP, CALL LIGHT WITHIN REACH. PT ON BILATERAL WRIST RESTRAINTS FOR SAFETY. ASSESSED PER PROTOCOL
--- NOTE | 2017-04-12 19:30 | NUR ---
RN NOTES PT ASLEEP ON BED. NOTED DESATURATION ON AND OFF UNTIL 85% AND COMES BACK RIGHT AWAY IN A MINUTE RT PLACED BIPAP BUT PT REFUSED AND GETTING MORE RESTLESS WITH BIPAP AND TRYING TO REMOVE ALL MED. EQUIPMENT. PT IS VERY CONFUSED TALKING AND MORE AWAKE. ISIDRO. WRIST RESTRAINT KEPT IN PLACED. OFF WITH BIPAP SATURATION STARTED TO GO UP TILL 95% PT STARTED TO SLEEP RIGHT AWAY. 02 3LPM VIA NC PLACED TOLERATED WELL. IV SITE ON SHANDRA PICC LINE INTACT AND PATENT RUNNING WITH LEVOPHED @ 5 MCG/MIN AND NS @ 75 CC/HR. RAC G18 INTACT AND PATETN WELL. F/C DRAINED WITH OUSMANE COLOR URINE. KEPT PT CLEAN AND COMFORTABLE IN BED. WILL MONITORED CLOSELY.
[2017-04-13] VITALS (38 sets, daily range): BP systolic 84–116; BP diastolic 39–91
[2017-04-13] MEDS: IV NS 0.9% 1,000 ML IV PRN ×2 (05:03→21:43)
[2017-04-13] MEDS: PIPERACILLIN /TAZOBACTAM 3.375 G in IV D5W 50 ML IV SCH ×4 (05:03→23:53)
[2017-04-13 06:16] LABS: EOSINOPHILS # (AUTO) 0.1 /CMM (0.0-0.7); EOSINOPHILS % (AUTO) 0.3 % (0.0-6.0); HEMATOCRIT 34 % (39-51); HEMOGLOBIN 11.1 g/dL (13.5-17.5); LYMPHOCYTES # (AUTO) 1.4 /CMM (0.8-4.8); LYMPHOCYTES % (AUTO) 8.3 % (20.0-44.0); MEAN CORPUSCULAR HEMOGLOBIN 28 PG (26.0-33.0); MEAN CORPUSCULAR HGB CONC 33 g/dl (31.0-36.0); MEAN CORPUSCULAR VOLUME 86 fL (80-96); MONOCYTES # (AUTO) 0.2 /CMM (0.1-1.30); MONOCYTES % (AUTO) 0.9 % (2.0-12.0); NEUTROPHILS # (AUTO) 15.4 /CMM (1.8-8.9); NEUTROPHILS % (AUTO) 90.5 % (43.0-81.0); PLATELET COUNT (AUTO) 163 /CMM (150-450); RDW COEFFICIENT OF VARIATION 18.1 (11.5-15.0); RED BLOOD CELL COUNT(AUTO) 3.93 MIL/uL (4.5-6.0)
--- NOTE | 2017-04-13 06:20 | NUR ---
RN NOTES PT ASLEEP FOR A COUPLE HOUR THEN SUDDENLY WOKE UP TO ASKED WATER AND DRINKS WANT TO RELEASE RESTRAINT AND STARTED TO REMOVE ALL MED DEVICES RIGHT AWAY. NEEDS ATTENDED THEN PT STARTED TO SLEEP AND SNORE VS STABLE. IV LINES INTACT AND PATENT. PT BACK TO SLEEP AT THIS TIME. WILL CONTINUE TO MONITOR.
[2017-04-13 06:42] LABS: CALCIUM, SERUM 8.6 mg/dL (8.5-10.1); POTASSIUM 3.6 mmol/L (3.5-5.1)
[2017-04-13 07:03] LABS: BAND % (MANUAL) 5 % (0.0-5.0); LYMPHOCYTES % (MANUAL) 5 % (16-48); MONOCYTES % (MANUAL) 3 % (0-11.0); NEUTROPHILS % (MANUAL) 87 (42-76)
--- NOTE | 2017-04-13 07:25 | NUR ---
RN NOTES PT NOTED RIGHT WRIST RESTRAINT RELEASED AND A LOT OF BLOOD ON THE CHEST AND PILLOW, SHANDRA PICC LINE PULLED OUT AND PT IS VERY AGITATED, SCREAMING AND YELLING IN THE ROOM AND WANTED TO RELEASED OTHER RESTRAINT, ENGINE SPECIALIST CALLED AND OTHER STAFF FOR HELP. RELEASED RESTRAINT FOR TRIAL AND PT STARTED TO CALM DOWN. CALLED NANI PSYCHE TO IMMEDIATE PSYCHE CONSULT. ENDORSED TO AM NURSE.
--- NOTE | 2017-04-13 07:28 | NUR ---
CODE ELLEN PT AGITATED COMBATIVE SWINGING AT STAFF. HE WAS ABLE TO REMOVE ONE RESTRAINT AND PULL OUT PICC. REMOVED 2ND RESTRAINT HE IS XANDER FOR SAFETY AND AGREES TO SETTLE DOWN. PROVIDED FLUIDS AND REMOVED RESTRAINT, HE STILL IS SCREAMING, BUT IS NOT TRYING TO HIT STAFF AT THIS TIME.
--- NOTE | 2017-04-13 07:47 | NUR ---
PT PULLED OUT PICC LINE, PT PULLED OUT IV'S, HE REMOVED THE BESDIE EKG, PULLED OFF BP CUFF AND ATTEMPTED TO PULL LOMAX BUT STOPPED DUE TO PAIN. PRESSURE DRESSING APPLIED TO RIGHT UPPER ARM DUE TO BLEEDING FROM PICC LINE SITE, BUT THE PATIENT IS AWAKE SCREAMING AND PULLING AT ALL LINES. APPLYING RESTRAINTS MAKES IT WORSE, HE STARTED TO SWING AT STAFF. TEN HUGHES CALLED. HELD DOWN PT'S ARM AND APPLIED DRESSING TO RIGHT ARM PICC LINE SITE. ABLE TO DIFFUSE THE SITUATION, GAVE HIM WATER JUICE SNACKS TO HELP CALM HIM DOWN. PT STATES HE WANTS TO LEAVE. CALLED MEAT SOAKER NOTIFIED HER OF SITUATION, BUT UNABLE TO GIVE A SITTER PER MEAT SOAKER. BUTCH CRISIS TEAM EVAL NOTIFIED [phone] FOR PSYCH EVAL.
--- NOTE | 2017-04-13 07:57 | NUR ---
WOUND CARE CONSULT: PT NOT SEEN FOR SKIN ASSESSMENT DUE TO AGGRESSIVE BEHAVIOR PER SUPPLY COORDINATOR AND PT'S RN. WILL SEE PT PT CONDITION PERMITS.
--- NOTE | 2017-04-13 08:07 | NUR ---
PT REFUSED IV INSERTION DESPITE EXPLANATION OF NEED FOR IV FLUIDS, PT SEVERELY AGITATED VERBALLY ABUSIVE AT STAFF. WILL TRY AGAIN LATER.
--- NOTE | 2017-04-13 08:33 | NUR ---
PT WANTING TO GO HOME, KEEPS ON REMOVING EKG AND BP CUFF, INTERMITTENTLY ALLOWS FOR CERTAIN INTERVENTIONS BUT AT THIS TIME HE IS FOCUSED ON GOING HOME. HE ATE 100% OF BREAKFAST AND CONSTANTLY ASKING FOR JUICE. HE GAVE THE ADDRESS TO HIS [place] [id number] [facility]. HE GIVES NUMBER FOR HIS UNCLE GALLITO [phone]
[2017-04-13 08:53] LABS: MAGNESIUM 2.2 mg/dL (1.8-2.4); PHOSPHORUS 1.9 mg/dL (2.5-4.9)
[2017-04-13 08:57] LABS: ABG OXYGEN SATURATION 91.9 % (92.0-98.5); ABG PH 7.461 (7.350-7.450); ABG PO2 62.2 mmHg (75.0-100.0); AaDO2 51.6 mmHg; MetHb 0.8 % (0.0-1.5); O2Hb 89.3 % (94.0-97.0); SITE, ABG Right Radial; VENT MODE, BG ROOM AIR
--- NOTE | 2017-04-13 09:38 | NUR ---
BUTCH ON THE UNIT EVALS THE PT AND PLACES ON 5[address] BARAKAT ALSO EVALUATING THE PATEINT AT THIS TIME THE BLOOD PRESSURE IS IN THE 80'S. HE HAS NOT IVF DUE TO PULLING OUT THE PREVIOUS IV'S. DR. BARAKAT ORDERS FOR 4 POINT RESTRAINTS. RESTRAINTS INITIATED AND RIGHT ARM 18 AND RIGHT AC 20 STARTED. SBP IS 110 WILL RESTART PRESSORS TO KEEP MAP >65
--- NOTE | 2017-04-13 09:50 | NUR ---
MONOGRAM AND LETTER PASTER NOTIFIED OF 5150 PLACED BY CRISIS TEAM. REQUESTED FOR 1:1 SITTER.
[2017-04-13] MEDS: PANTOPRAZOLE 40 MG TABLET.DR PO SCH (10:19)
[2017-04-13] MEDS: MUPIROCIN OINT 2% 22 GM TUBE SCH ×2 (10:20→21:47)
[2017-04-13] MEDS: LORAZEPAM 1 MG TABLET PO PRN (10:21)
[2017-04-13] MEDS ORDERED: LORAZEPAM INJ 2 MG/ML VIAL IM/IV STA (10:24)
[2017-04-13] MEDS ORDERED: OLANZAPINE 10 MG VIAL IM STA (10:24)
--- NOTE | 2017-04-13 10:26 | NUR ---
PT SPIT OUT PRN MEDICATIONS INCLUDING THE TYLENOL HE REQUESTED FOR PAIN. SEVERELY AGITATED AND CONTINUING TO SCREAM AND YELL. DR. DAVIS PAGED AND HE CALLS BACK AND IS UPDATED ABOUT SITUATION REGARIND [id number]. HE ORDERS FOR 1 TIME ZYPREXA IM 10MG AND ATIVAN 2MG IM NOW. ORDERS FILED
[2017-04-13] MEDS: HEPARIN SODIUM, PORCINE 5000 UNITS/1 ML VIAL SQ SCH ×2 (10:28→21:41)
[2017-04-13] MEDS ORDERED: IV SET PRIMARY PUMP SET 1 EA INFUS.SET MC ONE (11:21)
[2017-04-13] MEDS: VANCOMYCIN 1.25 GM in IV D5W 500 ML IV SCH ×2 (11:22→22:37)
--- NOTE | 2017-04-13 11:56 | NUR ---
PT OFF LEVOPHED SINCE 654 ON 04/13/17, WHEN HE PULLED OUT THE PICC LINE. WE REINSERTED 2 IV LINES AND RESTARTED HIM ON IVF NS AT 75CC/HR. BP HAS BEEN STABLE IN 90-110'S EVEN AFTER ZYPREXA AND ATIVAN IM GIVEN, HIS LOWEST SBP IS 88 BUT HE IS ALERT AND AGITATED WITH THAT BP.
[2017-04-13] MEDS ORDERED: QUETIAPINE FUMARATE 25 MG TABLET PO SCH (13:00)
[2017-04-13] MEDS: QUETIAPINE FUMARATE 25 MG TABLET PO SCH ×2 (13:21→16:58)
[2017-04-13] MEDS ORDERED: K PHOS NEUTRAL 250 MG TABLET PO ONE (16:30)
--- NOTE | 2017-04-13 20:00 | NUR ---
RN INITIAL NOTE; PT ON THE BED ASLEEP AT THIS TIME , EASILY AROUSABLE . ON 4 LPM VIA MASK ON/OFF . SATING 96%. MONITOR SHOWING ST 110s . PERIPHERAL IV IN RAC 20 G AND SHANDRA 18 G INTACT AND PATENT WITH NS @ 75 ML/HR. F/C INTACT AND DRAINING CLEAR OUSMANE COLORED URINE. WITH SITTER 1;1 FOR 5150 . B/L SWR INTACT , RELEASED AND SKIN ASSESSED . BED IN THE LOWEST/LOCKED POSITION. SAFETY MEASURES APPLIED. WILL TURN AND REPOSITION. WILL CONTINUE TO MONITOR .
[2017-04-14] VITALS (35 sets, daily range): BP systolic 92–131; BP diastolic 46–75
[2017-04-14 04:52] LABS: BASOPHILS % (AUTO) 0.2 % (0.0-2.0); EOSINOPHILS # (AUTO) 0.2 /CMM (0.0-0.7); EOSINOPHILS % (AUTO) 1.2 % (0.0-6.0); HEMATOCRIT 34 % (39-51); HEMOGLOBIN 10.9 g/dL (13.5-17.5); LYMPHOCYTES # (AUTO) 1.1 /CMM (0.8-4.8); LYMPHOCYTES % (AUTO) 6.5 % (20.0-44.0); MEAN CORPUSCULAR HEMOGLOBIN 28 PG (26.0-33.0); MEAN CORPUSCULAR HGB CONC 33 g/dl (31.0-36.0); MEAN CORPUSCULAR VOLUME 86 fL (80-96); MONOCYTES # (AUTO) 0.1 /CMM (0.1-1.30); MONOCYTES % (AUTO) 0.5 % (2.0-12.0); NEUTROPHILS # (AUTO) 15.2 /CMM (1.8-8.9); NEUTROPHILS % (AUTO) 91.6 % (43.0-81.0); PLATELET COUNT (AUTO) 157 /CMM (150-450); RDW COEFFICIENT OF VARIATION 18.8 (11.5-15.0); WHITE BLOOD COUNT (AUTO) 16.6 K/uL (4.3-11.0)
[2017-04-14 05:10] LABS: CALCIUM, SERUM 8.4 mg/dL (8.5-10.1); MAGNESIUM 1.8 mg/dL (1.8-2.4); PHOSPHORUS 2.1 mg/dL (2.5-4.9); POTASSIUM 3.7 mmol/L (3.5-5.1)
[2017-04-14] MEDS: PIPERACILLIN /TAZOBACTAM 3.375 G in IV D5W 50 ML IV SCH ×3 (05:26→17:09)
[2017-04-14 05:50] LABS: BAND % (MANUAL) 2 % (0.0-5.0); EOSINOPHILS % (MANUAL) 1 % (0-4); LYMPHOCYTES % (MANUAL) 9 % (16-48); MONOCYTES % (MANUAL) 1 % (0-11.0); NEUTROPHILS % (MANUAL) 87 (42-76)
--- NOTE | 2017-04-14 06:59 | NUR ---
RN EOS NOTE; PT REMAINED STABLE DURING THE SHIFT, NO DISTRESS NOTED DURING THE SHIFT. PT IS MORE ALERT/ORIENTED AT THIS TIME . 4 LPM O2 VIA MASK TOLERATED WELL. IV SITE INTACT AND PATENT, IV NS @ 75 TOLERATED WELL. TOTAL CARE RENDERED. 1;1 SITTER CONTINUE. B/L SWR INTACT , WILL ENDORSE TO NEXT SHIFT RN FOR CONTINUITY OF CARE. .
--- NOTE | 2017-04-14 07:10 | NUR ---
CHILD AND FAMILY COUNSELOR INITIAL NOTES RECEIVED PT IN BED, ASLEEP, EASY TO AROUSE, PT IS CONFUSED, ABLE TO FOLLOW SIMPLE COMMANDS, PT MUMBLES TO SELF, UNCLEAR WHAT PT IS SAYING, PT IS ON SIMPLE MASK @ 4L, SATING 100%, NO S/S OF RESP.DISTRESS OR SOB NOTED AT THIS TIME, PT ON BEDSIDE MONITOR SHOWING ST @ 108 BPM, NO S/S CHEST PAIN OR DISCOMFORT NOTED AT THIS TIME, PT HAS MULTIPLE SKIN ISSUES NOTED, PT HAS BILATERAL WRIST RESTRAINTS, RELEASED AND SKIN CHECK DONE, PT HAS 1:1 SITTER, D/T AGGRESSIVE BEHAVIOR AND 5150 HOLD, PT HAS F/C DRAINING OUSMANE URINE TO GRAVITY, PT HAS RAC #20G,SL, RUNNING NS@75ML/HR, SHANDRA 18G,SL, C/D/I/PATENT, FLUSHING WELL, GOOD BLOOD RETURN, NO S/S OF INFECTION/ INFILTRATION NOTED AT THIS TIME, ISOLATION PRECAUTIONS OBSERVED AT ALL TIMES, ALL SAFETY MEASURES IN PLACE AT ALL TIMES, CALL LIGHT WITHIN EASY REACH, WILL MONITOR PT CLOSELY FOR CHANGES
[2017-04-14] MEDS: PANTOPRAZOLE 40 MG TABLET.DR PO SCH ×2 (07:30→08:34)
[2017-04-14] MEDS: QUETIAPINE FUMARATE 25 MG TABLET PO SCH ×5 (08:34→16:38)
[2017-04-14] MEDS: HEPARIN SODIUM, PORCINE 5000 UNITS/1 ML VIAL SQ SCH ×2 (08:34→22:24)
[2017-04-14] MEDS: MUPIROCIN OINT 2% 22 GM TUBE SCH ×2 (08:35→22:27)
--- NOTE | 2017-04-14 08:46 | NUR ---
ICU NOTES PT SPIT OUT AM MEDICATIONS, EXPLAINED RISKS AND BENEFITS TO PT, PT DOES NOT COMPREHENDS, DOES NOT VERBALIZES UNDERSTANDING
[2017-04-14] MEDS: VANCOMYCIN 1.25 GM in IV D5W 500 ML IV SCH ×2 (11:00→23:51)
--- NOTE | 2017-04-14 11:24 | NUR ---
ICU NOTES VANCO TROUGH LEVEL 25, 1100 DOSE NOT GIVEN
[2017-04-14] MEDS: IV NS 0.9% 1,000 ML IV PRN (12:33)
[2017-04-14] MEDS ORDERED: IV SET PRIMARY PUMP SET 1 EA INFUS.SET MC ONE ×4 (14:05→23:18)
[2017-04-14] MEDS: LORAZEPAM 1 MG TABLET PO PRN (14:47)
[2017-04-14] MEDS: HYDROMORPHONE 1 MG/1 ML DISP.SYRIN IV PRN (14:47)
[2017-04-14] MEDS ORDERED: BUMETANIDE INJ 8 MG in IV NS 0.9% 48 ML IV ONE (15:00)
[2017-04-14] MEDS: K PHOS NEUTRAL 250 MG TABLET PO ONE ×2 (15:30→16:32)
--- NOTE | 2017-04-14 16:00 | NUR ---
ICU NOTE PT REMAINS UNCOOPERATIVE, PT PULLED OUT RAC IV, ATTEMPTED TO INSERT NEW IV, PT SCREAMED AND BECAME COMBATIVE, AWARE
[2017-04-14] MEDS: LACTOBACILLUS RHAMNOSUS GG 1 EACH CAP.SPRINK PO SCH ×2 (16:32→16:38)
--- NOTE | 2017-04-14 16:39 | NUR ---
ICU NOTES PT SPIT OUT PM MEDICATIONS, EXPLAINED RISKS AND BENEFITS TO PT, PT DOES NOT COMPREHENDS, DOES NOT VERBALIZES UNDERSTANDING
--- NOTE | 2017-04-14 17:00 | NUR ---
ICU NOTES DR.TIM PARHAM ORDERED DOBUTAMINE DRIP FOR PT, PT DOES NOT HAVE CENTRAL LINE, AWARE, ORDERED PICC LINE, LUISA CALLED, MEDICATION NOT ADMINISTERED AT THIS TIME, AWAITING PICC LINE PLACEMENT, CONSENT ATTAINED BY DOUBLE RN, PT DOES NOT HAVE FAMILY AND IS UNABLE TO COMPREHEND.
--- NOTE | 2017-04-14 19:30 | NUR ---
BELT BRANDER: RECEIVED PT. WT EYES CLOSED AND SNORING. EASILY AROUSED WHEN TOUCHED AND GOES BACK TO SLEEP. ON 4L SIMPLE FACE MASK WT NO ACUTE DISTRESS. NO EVIDENCE OF DISCOMFORT. RESTRAINTS OFF AT THIS TIME WT SITTER AT BEDSIDE. ST ON MONITOR. CONTINUE ON BUMEX DRIP WT GOOD URINE OUTPUT VIA F/C. STILL OFF DOBUTAMINE THERE IS ONLY 1 IV ACCESS AT THIS TIME. STILL AWAITING FOR PICC LINE NURSE. SBP IN LOW 100s. SAFETY PRECAUTION NOTED. WILL CONTINUE TO MONITOR.
[2017-04-14] MEDS ORDERED: DOBUTamine 12.5 MG/ML VIAL IV ONE ×2 (21:18→21:54)
--- NOTE | 2017-04-14 21:30 | NUR ---
FOREIGN EXCHANGE SERVICES MANAGER: SHANDRA PERIPHERAL IV GAUGE 20 INSERTED WT GOOD BLOOD RETURN. PICC LINE PLACEMENT WILL BE DONE IN AM. WILL START DOBUTAMINE ORDERED. BILAT. SWR IN PLACE FOR TRYING TO PULL TUBINGS. PT IS COOPERATIVE WT CARE AND DOES NOT WANT TO BE REPOSITIONED. EXPLAINED RISKS AND BENEFITS BUT CONTINUED TO REFUSE. STILL NOTED WT CONFUSION. SITTER AT BEDSIDE. SAFETY PRECAUTION NOTED.
[2017-04-14] MEDS: DOBUTamine 500 MG in IV D5W 210 ML IV PRN (22:14)
--- NOTE | 2017-04-14 22:15 | NUR ---
MANAGER NICU: STARTED DOBUTAMINE AT 5MCG/KG/MIN ORDERED WT NO TITRATION. WILL CONTINUE TO MONITOR.
[2017-04-15] VITALS (55 sets, daily range): BP systolic 88–151; BP diastolic 41–87
[2017-04-15] MEDS: PIPERACILLIN /TAZOBACTAM 3.375 G in IV D5W 50 ML IV SCH ×5 (00:01→23:56)
[2017-04-15] MEDS: HYDROMORPHONE 1 MG/1 ML DISP.SYRIN IV PRN ×2 (01:17→17:52)
[2017-04-15 05:11] LABS: CREATININE 1.1 mg/dL (0.6-1.3); PHOSPHORUS 2.4 mg/dL (2.5-4.9); POTASSIUM 3.3 mmol/L (3.5-5.1)
--- NOTE | 2017-04-15 06:50 | NUR ---
AQUATIC HABITAT BIOLOGIST: PT WAS ABLE TO REACH AND PULL OUT SHANDRA IV ACCESS WHILE DOING ROSAS CARE. STILL CONFUSED AND COMBATIVE. BILAT. SOFT WRIST RESTRAINTS KEPT IN PLACE PER PROTOCOL. STILL ON DOBUTAMINE AT 5MCG/KG/MIN. LARGE AMT. OF URINE OUTPUT VIA F/C. SITTER AT BEDSIDE. SAFETY PRECAUTION NOTED AT ALL TIMES.
--- NOTE | 2017-04-15 08:00 | NUR ---
ICU/RN: PT COMBATIVE, AGITATED HOSTILE. COMMANDS STAFF TO REMOVE ALL LINES, PER PT "I WANT TO GO HOME, YOU'RE GONNA BE LIABLE FOR THIS." EDUCATED ON POC, REFUSES ASSESSMENT AND TO ANSWER QUESTIONS AT THIS TIME. PT MOOD LABILE, A&OX2 ONLY. SAFETY MEASURES IN PLACE. SITTER AT BEDSIDE.
[2017-04-15 08:03] LABS: EOSINOPHILS # (AUTO) 0.2 /CMM (0.0-0.7); EOSINOPHILS % (AUTO) 0.9 % (0.0-6.0); HEMATOCRIT 34 % (39-51); HEMOGLOBIN 11.3 g/dL (13.5-17.5); LYMPHOCYTES # (AUTO) 1.5 /CMM (0.8-4.8); LYMPHOCYTES % (AUTO) 8.8 % (20.0-44.0); MEAN CORPUSCULAR HEMOGLOBIN 28 PG (26.0-33.0); MEAN CORPUSCULAR HGB CONC 33 g/dl (31.0-36.0); MEAN CORPUSCULAR VOLUME 86 fL (80-96); MONOCYTES # (AUTO) 0.1 /CMM (0.1-1.30); MONOCYTES % (AUTO) 0.4 % (2.0-12.0); NEUTROPHILS # (AUTO) 15.2 /CMM (1.8-8.9); NEUTROPHILS % (AUTO) 89.9 % (43.0-81.0); PLATELET COUNT (AUTO) 196 /CMM (150-450); RDW COEFFICIENT OF VARIATION 18.7 (11.5-15.0); RED BLOOD CELL COUNT(AUTO) 3.99 MIL/uL (4.5-6.0); WHITE BLOOD COUNT (AUTO) 16.9 K/uL (4.3-11.0)
[2017-04-15] MEDS: HEPARIN SODIUM, PORCINE 5000 UNITS/1 ML VIAL SQ SCH ×2 (08:26→20:06)
[2017-04-15] MEDS: PANTOPRAZOLE 40 MG TABLET.DR PO SCH (08:27)
[2017-04-15] MEDS: LORAZEPAM 1 MG TABLET PO PRN (08:27)
[2017-04-15] MEDS: QUETIAPINE FUMARATE 25 MG TABLET PO SCH ×3 (08:27→16:54)
[2017-04-15] MEDS: LACTOBACILLUS RHAMNOSUS GG 1 EACH CAP.SPRINK PO SCH ×2 (08:27→16:53)
[2017-04-15] MEDS: MUPIROCIN OINT 2% 22 GM TUBE SCH ×2 (08:38→20:04)
--- NOTE | 2017-04-15 08:55 | NUR ---
WOUND CARE CONSULT: RECEIVED CONSULT FOR BLISTERS AND WEEPING EDEMA. PATIENT CURRENTLY IN PROCEDURE AND REMAINS VERY COMBATIVE AND AGITATED. PATIENT TO BE SEEN FOR SKIN ASSESSMENT PATIENT'S CONDITION PERMITS. DISCUSSED WITH RN.
[2017-04-15 09:03] LABS: BAND % (MANUAL) 6 % (0.0-5.0); LYMPHOCYTES % (MANUAL) 8 % (16-48); MONOCYTES % (MANUAL) 5 % (0-11.0); NEUTROPHILS % (MANUAL) 81 (42-76)
[2017-04-15] MEDS ORDERED: SECONDARY IV SET 1 EA INFUS.SET MC ONE ×2 (10:09→12:27)
[2017-04-15] MEDS: POTASSIUM CL. PREMIX PERIPHER. 50 ML IV SCH ×4 (10:45→13:50)
--- NOTE | 2017-04-15 11:54 | NUR ---
ICU/RN: MARLENY PARHAM AT THE BEDSIDE; UPDATED ON PT STATUS. INFORMED OF ABN LABS, POOR PO INTAKE, MENTAL STATUS, ON O2 2L/MIN NC. PER BABY STROLLER RENTAL CLERK, WILL CONTINUE DIURESIS TODAY, KEEP ON DOBUTAMINE FOR BP SUPPORT. ELECTROLYTES TO BE REPLACED. ORDERS NOTED AND CARRIED OUT.
[2017-04-15] MEDS ORDERED: BUMETANIDE INJ 12 MG in IV NS 0.9% 72 ML IV ONE (12:00)
[2017-04-15] MEDS ORDERED: POTASSIUM CL. PREMIX PERIPHER. 50 ML IV SCH (12:00)
[2017-04-15] MEDS: Potassium Phosphate meq 11 MEQ in IV D5W 100 ML IV SCH ×2 (12:35→15:36)
[2017-04-15] MEDS ORDERED: IV SET PRIMARY PUMP SET 1 EA INFUS.SET MC ONE ×2 (12:54→18:57)
[2017-04-15] MEDS: BOOST PLUS FOOD-CHOCLATE 237 ML BOX PO SCH ×2 (12:55→16:54)
[2017-04-15] MEDS: DOBUTamine 500 MG in IV D5W 210 ML IV PRN (12:59)
--- NOTE | 2017-04-15 15:00 | NUR ---
ICU/RN: PT COMBATIVE AND HOSTILE DURING BED BATH; CATH CARE. ATTEMPTS TO STRIKE AT STAFF AND PULL LINES. IS VERBALLY ABUSIVE. RELAXATION TECHNIQUES ENCOURAGED. NEEDS REINFORCEMENT.
[2017-04-15] MEDS: VANCOMYCIN 1.25 GM in IV D5W 500 ML IV SCH (16:53)
[2017-04-15] MEDS ORDERED: IV NS 0.9% 250 ML IV ONE (18:57)
--- NOTE | 2017-04-15 19:09 | NUR ---
ICU/RN: PT RESTING IN BED, NO DISTRESS NOTED, ON BILAT SOFT WRIST RESTRAINTS, SHANDRA PICC PATENT AND INTACT, FC DRAINING WELL TO GRAVITY, ALARM SOUNDS AUDIBLE, CARE ENDORSED TO PM RN FOR ANGUS.
--- NOTE | 2017-04-15 19:41 | NUR ---
RN:ICU: PT RECEIVED IN BED RESTLESS. PT ON 72 HOUR HOLD. SITTER AT BEDSIDE. PT ON DOBUTAMINE GTT AT 5MCG/KG/MIN, WHICH IS NON-TITRATABLE. PER PREVIOUS NURSE PT TO HAVE DOBUTAMINE GTT INFUSING WHILE PATIENT ON BUMEX GTT. PT HR INCREASED 120'S AND NOTED TO HAVE TEMPERATURE OF 100.6. COOLING MEASURES IMPLEMENTED, WILL REASSESS SHORTLY. SAFETY PRECAUTIONS IN PLACE. WILL CONTINUE TO MONITOR CLOSELY.
--- NOTE | 2017-04-15 20:18 | NUR ---
RN:ICU: COOLING MEASURES INEFFECTIVE. TEMP 101.4 AXILLARY. STAT BLOOD CULTURES ORDERED. WILL ATTEMPT TO ADMIN PO TYLENOL.
[2017-04-15] MEDS: ACETAMINOPHEN 325 MG TABLET PO PRN (20:34)
--- NOTE | 2017-04-15 20:49 | NUR ---
RN:ICU: PT NOTED TO HAVE PERIODS OF APNEA, WITH DECREASED O2 SAT. PT HAS HX OF SLEEP APNEA. O2 SATURATION SPONTANEOUSLY INCREASES BACK TO 90'S. PT ABLE TO SWALLOW TYLENOL FOR FEVER. ASPIRATION PRECAUTIONS IN PLACE. PT RR AND HEART RATE INCREASED DUE TO FEVER. SITTER AT THE BEDSIDE FOR PATIENT SAFETY. BLOOD CULTURES X2 SEND TO LAB. DOBUTAMINE AND BUMEX GTT INFUSING VIA LEFT UPPER ARM PICC. WILL CONTINUE TO MONITOR CLOSELY.
--- NOTE | 2017-04-15 21:45 | NUR ---
RN:ICU: PT NOTED TO HAVE INCREASED PERIODS OF APNEA AND LETHARGY. PT PLACED ON 15L NONREBREATER. STAT ABG ORDERED. RT INFORMED. WILL CONTINUE TO MONITOR CLOSELY. Addendum: 04/15/17 at 2202 by EDWIGE GROVER RN PATIENT NOTED TO HAVE INCREASED WOB AND ACCESSORY MUSCLE USE. PENDING RESULTS.
[2017-04-15 22:00] LABS: ABG BASE EXCESS 7.1 mmol/L; ABG OXYGEN SATURATION 96.8 % (92.0-98.5); ABG PCO2 63.3 mmHg (35.0-45.0); ABG PH 7.354 (7.350-7.450); ABG PO2 96.1 mmHg (75.0-100.0); AaDO2 553.6 mmHg; COHb 2.3 % (0.5-1.5); MetHb 0.7 % (0.0-1.5); O2Hb 93.9 % (94.0-97.0); SITE, ABG Right Radial; VENT MODE, BG NRB
--- NOTE | 2017-04-15 22:16 | NUR ---
RN:ICU: ABG RESULTS 7.354 PCO2 63.3 PO2 96 ON 15 L AND HCO3 [address] BARAKAT. NEW ORDERS TO TITRATE FIO2 TO KEEP SATURATION BETWEEN 88-90%. PATIENT PLACED ON SIMPLE MASK AT 6 L PT IS BREATHING THROUGH HIS MOUTH. MD MADE AWARE OF PT BECOMING MORE LETHARGIC AND INCREASED WOB. NO ADDITIONAL ORDERS PROVIDED. WILL CONTINUE TO MONITOR CLOSELY.
[2017-04-16] VITALS (91 sets, daily range): BP systolic 86–142; BP diastolic 35–93
--- NOTE | 2017-04-16 | NUR ---
RN:ICU: PT BP RUNNING 130-150'S WITH INCREASED HR 120'S. PT TEMP 99.4. CALL PLACED TO CLARIFY IF DOBUTAMINE GTT CAN BE TURNED OFF PT DOES NOT NEED BP SUPPORT. PENDING CALL BACK.
--- NOTE | 2017-04-16 00:06 | NUR ---
RN:ICU: D/W DR BROWNING REGARDING PT BP 130-150'S AND INCREASED HR 120'S, WHILE ON DOBUTAMINE GTT. INFORMED MD THAT PT HAS EF 30% WITH SEVERELY DILATED LEFT VENTRICLE, BUT THAT DOBUTAMINE WAS ORDERED FOR BP SUPPORT DURING DIURESIS. MD STATED TO HAVE ONCOMING SHIFT CLARIFY PARAMETERS IN AM AND DETERMINE IF CARDIOLOGY WOULD LIKE TO CONTINUE DESPITE NORMAL BP. PER MD KEEP DRIP RUNNING FOR NOW AND CONTINUE TO MONITOR. ORDERS FOLLOWED. ICU CHARGE MADE AWARE. PT AROUSABLE TO PAINFUL STIMULI BUT IS MORE LETHARGIC THAN EARLIER. ASPIRATION PRECAUTIONS IN PLACE.
[2017-04-16] MEDS: DOBUTamine 500 MG in IV D5W 210 ML IV PRN ×3 (00:53→23:10)
--- NOTE | 2017-04-16 03:40 | NUR ---
RN:ICU: PT REMAINS AROUSABLE TO PAINFUL STIMULI. O2 TITRATED TO 2L NC. PT SAT MAINTAINED PER PULMONARY MD ORDERS 91-90%. HR IMPROVING 115. BP 110'S-120'S ON DOBUTAMINE GTT AT 5MCG/KG/MIN. PT CONTINUES TO DIURESE WELL OVER 5L OUTPUT. BUMEX GTT COMPLETE. WILL CONTINUE TO MONITOR CLOSELY. SAFETY PRECAUTIONS IN PLACE.
[2017-04-16 04:40] LABS: BASOPHILS % (AUTO) 0.3 % (0.0-2.0); EOSINOPHILS # (AUTO) 0.1 /CMM (0.0-0.7); EOSINOPHILS % (AUTO) 0.6 % (0.0-6.0); HEMATOCRIT 35 % (39-51); HEMOGLOBIN 11.3 g/dL (13.5-17.5); LYMPHOCYTES # (AUTO) 0.9 /CMM (0.8-4.8); LYMPHOCYTES % (AUTO) 5.6 % (20.0-44.0); MEAN CORPUSCULAR HEMOGLOBIN 28 PG (26.0-33.0); MEAN CORPUSCULAR HGB CONC 32 g/dl (31.0-36.0); MEAN CORPUSCULAR VOLUME 86 fL (80-96); MONOCYTES # (AUTO) 0.3 /CMM (0.1-1.30); MONOCYTES % (AUTO) 1.6 % (2.0-12.0); NEUTROPHILS % (AUTO) 91.9 % (43.0-81.0); PLATELET COUNT (AUTO) 228 /CMM (150-450); RDW COEFFICIENT OF VARIATION 18.8 (11.5-15.0); RED BLOOD CELL COUNT(AUTO) 4.08 MIL/uL (4.5-6.0); WHITE BLOOD COUNT (AUTO) 16.3 K/uL (4.3-11.0)
[2017-04-16 04:53] LABS: CALCIUM, SERUM 7.5 mg/dL (8.5-10.1); MAGNESIUM 1.5 mg/dL (1.8-2.4); PHOSPHORUS 4.5 mg/dL (2.5-4.9); POTASSIUM 3.2 mmol/L (3.5-5.1)
[2017-04-16] MEDS: PIPERACILLIN /TAZOBACTAM 3.375 G in IV D5W 50 ML IV SCH ×4 (05:01→23:10)
[2017-04-16 05:48] LABS: LYMPHOCYTES % (MANUAL) 12 % (16-48); MONOCYTES % (MANUAL) 5 % (0-11.0); NEUTROPHILS % (MANUAL) 83 (42-76)
--- NOTE | 2017-04-16 07:00 | NUR ---
OTR TANKER TRUCK DRIVER- INITIAL NOTE RECEIVED PT IN BED, A/O X1, RESTLESS. 1:[address] ON 2L NC, SATURATING AT 95%. BEDSIDE MONITOR REVEALS SINUS TACHYCARDIA, HR= 105. JAVI PICC LINE PRESENT RUNNING DOBUTAMINE GTT AT 5 MCG/MIN. LOMAX CATHETER DRAINING TO GRAVITY CLEAR, OUSMANE URINE. SAFETY MEASURES TAKEN: BED LOCKED AND IN LOW POSITION, SIDE RAILS UP X2, AND BED ALARM ON, WILL CONTINUE TO MONITOR.
[2017-04-16] MEDS: PANTOPRAZOLE 40 MG TABLET.DR PO SCH (08:20)
[2017-04-16] MEDS: LACTOBACILLUS RHAMNOSUS GG 1 EACH CAP.SPRINK PO SCH ×2 (08:21→16:57)
[2017-04-16] MEDS: QUETIAPINE FUMARATE 25 MG TABLET PO SCH ×3 (08:21→16:57)
[2017-04-16] MEDS: HEPARIN SODIUM, PORCINE 5000 UNITS/1 ML VIAL SQ SCH ×2 (08:23→20:22)
[2017-04-16] MEDS: MUPIROCIN OINT 2% 22 GM TUBE SCH ×2 (08:24→20:25)
[2017-04-16] MEDS ORDERED: SECONDARY IV SET 1 EA INFUS.SET MC ONE ×2 (08:55→12:31)
[2017-04-16] MEDS ORDERED: IV SET PRIMARY PUMP SET 1 EA INFUS.SET MC ONE (08:55)
[2017-04-16] MEDS: BOOST PLUS FOOD-CHOCLATE 237 ML BOX PO SCH ×3 (08:56→16:57)
[2017-04-16] MEDS: POTASSIUM CL. PREMIX PERIPHER. 50 ML IV SCH ×4 (09:02→11:55)
[2017-04-16] MEDS: Magnesium 1GM/D5W 100ML PREMIX 100 ML IV SCH ×2 (09:02→09:58)
[2017-04-16 09:10] LABS: ABG BASE EXCESS 11.1 mmol/L; ABG PCO2 40.8 mmHg (35.0-45.0); ABG PH 7.545 (7.350-7.450); ABG PO2 59.3 mmHg (75.0-100.0); AaDO2 92.2 mmHg; COHb 2.6 % (0.5-1.5); MetHb 0.8 % (0.0-1.5); O2Hb 89.8 % (94.0-97.0); SITE, ABG Left Brachial; VENT MODE, BG Nasal Cannula
--- NOTE | 2017-04-16 09:30 | NUR ---
DIRECTOR OF SOCIAL MEDIA MARKETING- COMPLETE BED BATH WAS GIVEN TO PT WITH ASSISTANCE OF FORREST NORTON. ALL LINENS CHANGED. PT WAS UNCOOPERATIVE, SPITTING AND VERBALLY ABUSIVE. WILL ADMINISTER ATIVAN 2 MG PO PRN ORDERED. WILL CONTINUE TO MONITOR.
[2017-04-16] MEDS: LORAZEPAM 1 MG TABLET PO PRN ×2 (09:51→19:19)
[2017-04-16] MEDS: VANCOMYCIN 1.25 GM in IV D5W 500 ML IV SCH (12:37)
--- NOTE | 2017-04-16 13:00 | NUR ---
INDIRECT FIRE INFANTRYMAN- LEFT MESSAGE FOR DR. LEES'S OFFICE REGARDING 5150 HOLD THAT TODAY AT 0930. WILL CONTINUE TO MONITOR.
--- NOTE | 2017-04-16 14:00 | NUR ---
FUR CUTTING MACHINE OPERATOR- PT HAD BOWEL MOVEMENT. PT CLEANED & LINENS CHANGED WITH ASSISTANCE OF FORREST RN AND TWO NURSES. PT WAS UNCOOPERATIVE, YELLING & SCREAMING. WILL CONTINUE TO MONITOR.
--- NOTE | 2017-04-16 15:40 | NUR ---
DIGITAL ARCHIVIST- DR. LEES AT BEDSIDE. DR. LEES EXTENDED HOLD AND NOW PT IS ON 14 DAY HOLD, EXPIRING 04/30/17. 1:1 SITTER REMAINS AT BEDSIDE. WILL CONTINUE TO MONITOR. Addendum: 04/16/17 at 1853 by CHELSEY RIVERA RN UPDATED MD ON PT'S CONDITION THROUGHOUT MY SHIFT THUS FAR. PT HAS BEEN OCCASIONALLY YELLING, SCREAMING, SPITTING AND VERBALLY ABUSIVE. PT ALSO STATING HE WANTS RESTRAINTS REMOVED AND WANTS TO LEAVE THE HOSPITAL. ATIVAN 2 MG GIVEN IN THE AM AND WAS EFFECTIVE AND PT TAKING SEROQUEL 50 MG PO TID SCHEDULED. MD AWARE. THEREFORE, HOLD WAS EXTENDED.
[2017-04-16] MEDS: acetaZOLAMIDE SODIUM 500 MG/VIAL VIAL IV SCH (16:57)
--- NOTE | 2017-04-16 19:22 | NUR ---
RN:ICU: PT EXTREMELY AGITATED, THRASHING IN BED AND SCREAMING. PT ATTEMPTING TO REMOVE LINES AND IS VERBALLY ABUSIVE TO STAFF. SITTER AT THE BEDSIDE. DIFFICULT TO CONTROL PATIENT. ATIVAN GIVEN PER MD ORDERS FOR SEVERE AGITATION. WILL CONTINUE TO MONITOR CLOSELY.
--- NOTE | 2017-04-16 20:15 | NUR ---
RN:ICU: ATTEMPTED TO HIDE ALL IV LINES AND TUBING TO PREVENT INJURY TO PATIENT. PATIENT CONTINUES TO BE VERBALLY ABUSIVE TO STAFF, AND SPITTING ALL OVER HIMSELF. ATTEMPTED TO REORIENT PATIENT AND EDUCATED HIM WITH OUT SUCCESS. ALL SAFETY PRECAUTIONS IN PLACE.
[2017-04-16] MEDS: HYDROMORPHONE 1 MG/1 ML DISP.SYRIN IV PRN (20:22)
--- NOTE | 2017-04-16 20:27 | NUR ---
RN:ICU: PT SCREAMING THAT HE HAS PAIN. PATIENT MEDICATED FOR PAIN PER MD ORDERS. PT LESS RESTLESS AFTER PAIN LABEL PASTER. O2 INCREASED TO 4L NC, PATIENT IS NOW MOUTH BREATHING AND HAVING SOME EPISODES OF SLEEP APNEA. WILL CONTINUE TO MONITOR CLOSELY. PT REMAINS ON 14 DAY HOLD DUE TO DANGERS TO OTHERS AND GRAVELY DISABLED.
--- NOTE | 2017-04-16 21:53 | NUR ---
RN:ICU: PT WELL SEDATED AT THIS TIME BUT STILL AROUSABLE TO PAIN AND VOICE COMMANDS. VSS. WILL CONTINUE TO MONITOR CLOSELY. 1:1 SITTER AT THE BEDSIDE.
[2017-04-17] VITALS (94 sets, daily range): BP systolic 79–144; BP diastolic 34–103
[2017-04-17] MEDS: QUETIAPINE FUMARATE 25 MG TABLET PO PRN (01:03)
--- NOTE | 2017-04-17 01:13 | NUR ---
RN:ICU: PT BECOMING VERY RESTLESS AND AGGRESSIVE. PT GIVEN SEROQUEL PRN FOR PSYCHOSIS. SITTER AT THE BEDSIDE. SAFETY PRECAUTIONS IMPLEMENTED. VSS.
[2017-04-17] MEDS: HYDROMORPHONE 1 MG/1 ML DISP.SYRIN IV PRN ×2 (02:41→19:49)
[2017-04-17] MEDS: VANCOMYCIN 1.25 GM in IV D5W 500 ML IV SCH ×2 (04:19→18:33)
[2017-04-17] MEDS ORDERED: IV NS 0.9% 250 ML IV ONE ×2 (06:21→17:02)
[2017-04-17] MEDS: PIPERACILLIN /TAZOBACTAM 3.375 G in IV D5W 50 ML IV SCH ×4 (06:22→23:43)
[2017-04-17 06:36] LABS: BASOPHILS % (AUTO) 0.2 % (0.0-2.0); EOSINOPHILS # (AUTO) 0.2 /CMM (0.0-0.7); EOSINOPHILS % (AUTO) 1.3 % (0.0-6.0); HEMATOCRIT 34 % (39-51); LYMPHOCYTES # (AUTO) 0.9 /CMM (0.8-4.8); LYMPHOCYTES % (AUTO) 6.6 % (20.0-44.0); MEAN CORPUSCULAR HEMOGLOBIN 28 PG (26.0-33.0); MEAN CORPUSCULAR HGB CONC 33 g/dl (31.0-36.0); MEAN CORPUSCULAR VOLUME 86 fL (80-96); MONOCYTES # (AUTO) 0.3 /CMM (0.1-1.30); MONOCYTES % (AUTO) 2.3 % (2.0-12.0); NEUTROPHILS # (AUTO) 12.6 /CMM (1.8-8.9); NEUTROPHILS % (AUTO) 89.6 % (43.0-81.0); PLATELET COUNT (AUTO) 250 /CMM (150-450); RDW COEFFICIENT OF VARIATION 18.8 (11.5-15.0); RED BLOOD CELL COUNT(AUTO) 3.95 MIL/uL (4.5-6.0)
[2017-04-17 07:13] LABS: CALCIUM, SERUM 7.8 mg/dL (8.5-10.1); MAGNESIUM 1.8 mg/dL (1.8-2.4)
--- NOTE | 2017-04-17 07:15 | NUR ---
RN NOTES RECEIVED PATIENT AOX1 , RESTLESS , AGITATED , WITH 1:1 SITTER AT BEDSIDE , NOT IN ACUTE DISTRESS , RESPIRATIONS EVEN AND UNLABORED WITH SPO2 OF 98% VIA 2LPM NC , ST 105 ON BEDSIDE MONITOR , FC DRAINING WELL VIA GRAVITY WITH OUSMANE COLORED URINE , JAVI PICC LINE WITH NS @ TKO , DOBUTAMINE DRIP @ 5MCG/KG/MIN INFUSING WELL , ALL NEEDS ATTENDED , BED ON LOW AND LOCKED POSITION , SIDE RAILS X3 , WILL CONTINUE TO MONITOR .
[2017-04-17 07:56] LABS: POTASSIUM 2.7 mmol/L (3.5-5.1)
[2017-04-17] MEDS: LACTOBACILLUS RHAMNOSUS GG 1 EACH CAP.SPRINK PO SCH ×2 (08:08→17:11)
[2017-04-17] MEDS: BOOST PLUS FOOD-CHOCLATE 237 ML BOX PO SCH ×3 (08:08→17:11)
[2017-04-17] MEDS: PANTOPRAZOLE 40 MG TABLET.DR PO SCH (08:08)
[2017-04-17] MEDS: QUETIAPINE FUMARATE 25 MG TABLET PO SCH ×3 (08:08→17:11)
[2017-04-17] MEDS: HEPARIN SODIUM, PORCINE 5000 UNITS/1 ML VIAL SQ SCH ×2 (08:09→20:27)
[2017-04-17] MEDS: MUPIROCIN OINT 2% 22 GM TUBE SCH ×2 (08:10→20:26)
[2017-04-17] MEDS: acetaZOLAMIDE SODIUM 500 MG/VIAL VIAL IV SCH (09:45)
--- NOTE | 2017-04-17 10:30 | NUR ---
BAROMETERS CALIBRATOR NOTES DR BARAKAT AT BEDSIDE , PT IS LESS AGITATED AT THIS TIME , SPO2 OF 97% VIA 2LPM NC NO SIGNS OF DISTRESS , BP WNL ON DOBUTAMINE DRIP @ 5MCG/KG/ MIN , TOLERATING DIET NOTED WITH 100 % BREAKFAST WITH BOOST , AWARE
--- NOTE | 2017-04-17 11:14 | NUR ---
STUDENT AMBASSADOR NOTES MARLENY PARHAM JOB SETTER AT BEDSIDE , DISCUSSED LABS , AFEBRILE , ON DOBUTAMINE DRIP WITH STABLE BP , K OF 2.7 , PER MD REPLACE IT WITH K DUR 40 MEQ NOW AND ANOTHER K DUR 40 MEQ AT 1500 , CK MB WNL , DIURESING WELL 400 ML Q2 HOURS WITH OUSMANE COLORED URINE , PT ON DIAMOX 500MG DAILY . MD AWARE
--- NOTE | 2017-04-17 11:17 | NUR ---
BEEF PLUCK TRIMMER NOTES DR WESTON AT BEDSIDE , DISCUSSED LABS , AFEBRILE , ON DOBUTAMINE DRIP WITH STABLE BP , K OF 2.7 ,REPLACED WITH 80 MEQ K DUR , CK MB WNL , DIURESING WELL 400 ML Q2 HOURS WITH OUSMANE COLORED URINE , PT ON DIAMOX 500MG DAILY , NO ACTIVE BLEEDING . AWARE
[2017-04-17] MEDS ORDERED: POTASSIUM CHLORIDE 20 MEQ TAB.PRT.SR PO ONE ×2 (11:30→15:00)
[2017-04-17] MEDS: DOBUTamine 500 MG in IV D5W 210 ML IV PRN ×2 (12:24→23:44)
[2017-04-17] MEDS: LORAZEPAM 1 MG TABLET PO PRN (14:00)
--- NOTE | 2017-04-17 14:00 | NUR ---
BEHAVIOR THERAPIST NOTES PT NOTED WITH AGITATION , SCREAMING , VERBAL ABUSIVE TO STAFF ,ATIVAN PRN GIVEN , WILL CONTINUE TO MONITOR
--- NOTE | 2017-04-17 19:30 | NUR ---
RN INITIAL NOTES RECEIVED PATIENT IN BED, AWAKE, ALERT X2, AGITATED AND COMBATIVE AT THIS TIME, TRYING TO KICK STAFF, DIFFICULT TO REDIRECT DUE TO PAIN. WILL ADMINISTER PAIN MEDICATION PRESCRIBED. BREATHING EVEN AND NONLABORED WHILE ON O2 VIA NC @ 2LPM, TOLERATING WELL. BEDSIDE TELEMETRY MONITORING REVEALS SINUS TACHYCARDIA WITH OCCASIONAL PVCs, HR CURRENTLY 111. 1:1 SITTER AT BEDSIDE FOR SAFETY. JAVI PICC PATENT AND INTACT, DOBUTAMINE @ 5MCG CURRENTLY INFUSING, TOLERATING WELL, SBP SUSTAINED ABOVE 95. WILL CONTINUE TO CLOSELY MONITOR THE PATIENT
--- NOTE | 2017-04-17 19:49 | NUR ---
RN NOTES PATIENT CONTINUES TO BE VERBALLY ABUSIVE TOWARDS STAFF, DIFFICULT TO REDIRECT, NONCOMPLIANT, SCREAMING. DILAUDID 1MG IVP ADMINISTERED PRESCRIBED. WILL CONTINUE TO CLOSELY MONITOR
[2017-04-18] VITALS (69 sets, daily range): BP systolic 96–134; BP diastolic 46–81
--- NOTE | 2017-04-18 | NUR ---
RN NOTES PATIENT SLEEPING IN BED, APPEARS COMFORTABLE. NOTED WITH PERIODS OF DESATURATION WITH APNEIC SPELLS, BUT SPO2 GOES BACK UP ONCE PATIENT IS AWAKE. CONTINUES ON DOBUTAMINE DRIP AT 5MCG/KG/MIN. WILL CONTINUE TO CLOSELY MONITOR
[2017-04-18 05:20] LABS: EOSINOPHILS # (AUTO) 0.1 /CMM (0.0-0.7); EOSINOPHILS % (AUTO) 0.7 % (0.0-6.0); HEMATOCRIT 32 % (39-51); HEMOGLOBIN 10.6 g/dL (13.5-17.5); LYMPHOCYTES # (AUTO) 0.8 /CMM (0.8-4.8); LYMPHOCYTES % (AUTO) 6.2 % (20.0-44.0); MEAN CORPUSCULAR HEMOGLOBIN 28 PG (26.0-33.0); MEAN CORPUSCULAR HGB CONC 33 g/dl (31.0-36.0); MEAN CORPUSCULAR VOLUME 85 fL (80-96); MONOCYTES # (AUTO) 0.3 /CMM (0.1-1.30); MONOCYTES % (AUTO) 2.2 % (2.0-12.0); NEUTROPHILS # (AUTO) 11.2 /CMM (1.8-8.9); NEUTROPHILS % (AUTO) 90.9 % (43.0-81.0); PLATELET COUNT (AUTO) 285 /CMM (150-450); RDW COEFFICIENT OF VARIATION 18.6 (11.5-15.0); RED BLOOD CELL COUNT(AUTO) 3.76 MIL/uL (4.5-6.0); WHITE BLOOD COUNT (AUTO) 12.3 K/uL (4.3-11.0)
[2017-04-18 05:37] LABS: CALCIUM, SERUM 8.2 mg/dL (8.5-10.1); PHOSPHORUS 2.6 mg/dL (2.5-4.9); POTASSIUM 3.1 mmol/L (3.5-5.1)
[2017-04-18 05:38] LABS: BILIRUBIN,DIRECT 1.7 mg/dL (0.0-0.2); BILIRUBIN,TOTAL 2.5 mg/dL (0.2-1.0)
[2017-04-18] MEDS: PIPERACILLIN /TAZOBACTAM 3.375 G in IV D5W 50 ML IV SCH ×4 (05:40→23:35)
[2017-04-18] MEDS: HYDROMORPHONE 1 MG/1 ML DISP.SYRIN IV PRN ×5 (05:41→23:39)
--- NOTE | 2017-04-18 05:41 | NUR ---
RN NOTES PATIENT AWAKE, SCREAMING, UNDIRECTABLE. PAIN MEDICATION ADMINISTERED PRESCRIBED. WILL CONTINUE TO CLOSELY MONITOR
[2017-04-18 05:43] LABS: ALBUMIN 1.3 g/dL (3.4-5.0)
[2017-04-18] MEDS: VANCOMYCIN 1.25 GM in IV D5W 500 ML IV SCH ×2 (06:10→16:04)
--- NOTE | 2017-04-18 07:00 | NUR ---
RN CLOSING NOTES PATIENT RESTING COMFORTABLY IN BED, PAIN MEDICATION EFFECTIVE. 1:1 SITTER REMAINS AT BEDSIDE. PATIENT CONTINUES ON DOBUTAMINE DRIP @ 5MCG/KG/MIN. WILL ENDORSE THE PATIENT TO THE AM SHIFT NURSE FOR ANGUS
[2017-04-18] MEDS: PANTOPRAZOLE 40 MG TABLET.DR PO SCH (07:48)
[2017-04-18] MEDS: BOOST PLUS FOOD-CHOCLATE 237 ML BOX PO SCH ×3 (08:00→16:33)
[2017-04-18] MEDS: acetaZOLAMIDE SODIUM 500 MG/VIAL VIAL IV SCH (08:01)
[2017-04-18] MEDS: LACTOBACILLUS RHAMNOSUS GG 1 EACH CAP.SPRINK PO SCH ×2 (08:01→16:33)
[2017-04-18] MEDS: MUPIROCIN OINT 2% 22 GM TUBE SCH ×2 (08:01→20:14)
[2017-04-18] MEDS: HEPARIN SODIUM, PORCINE 5000 UNITS/1 ML VIAL SQ SCH ×2 (08:02→20:04)
[2017-04-18] MEDS: QUETIAPINE FUMARATE 25 MG TABLET PO SCH ×3 (08:02→16:33)
[2017-04-18 08:05] LABS: BAND % (MANUAL) 14 % (0.0-5.0); EOSINOPHILS % (MANUAL) 1 % (0-4); LYMPHOCYTES % (MANUAL) 5 % (16-48); MONOCYTES % (MANUAL) 5 % (0-11.0); NEUTROPHILS % (MANUAL) 75 (42-76)
--- NOTE | 2017-04-18 11:07 | NUR ---
SW attempt to meet with pt. bedside, however pt. continues to be agitated and according to Pt's RN Job, pt. is not able to make decisions at this time due to drug overdose. Pt. is on a 5250 hold.
[2017-04-18] MEDS: DOBUTamine 500 MG in IV D5W 210 ML IV PRN ×2 (11:26→23:37)
[2017-04-18] MEDS: POTASSIUM CHLORIDE 20 MEQ TAB.PRT.SR PO SCH ×2 (11:43→12:15)
--- NOTE | 2017-04-18 11:46 | NUR ---
PT REFUSED 0800 AND 1200 BOOST. HE HAS GOOD APPETITE AND EATS AT LEAST 75% OF DIET. WILL KEEP BOOST ON STAND BY IN CASE HE WANTS IT, BUT HE IS FOCUSED ON PAIN MEDICATIONS REQUESTING IT AROUND THE CLOCK.
[2017-04-18] MEDS ORDERED: POTASSIUM CHLORIDE 20 MEQ TAB.PRT.SR PO ONE (17:30)
[2017-04-18] MEDS ORDERED: ALBUMIN 25% 12.5 GM/50 ML BOTTLE IV ONE ×2 (17:30→19:00)
[2017-04-18] MEDS ORDERED: ALBUMIN 25% 50 GM in PREMIX 1 EA IV ONE (19:00)
--- NOTE | 2017-04-18 19:30 | NUR ---
RN INITIAL NOTES RECEIVED PATIENT IN BED, AWAKE, ALERT X2, WITH PERIODS OF AGITATION. BREATHING EVEN AND NONLABORED WHILE ON O2 VIA NC @ 2LPM, TOLERATING WELL. BEDSIDE TELEMETRY MONITORING REVEALS SINUS TACHYCARDIA WITH OCCASIONAL PVCs, HR CURRENTLY 109. 1:1 SITTER AT BEDSIDE FOR SAFETY. JAVI PICC PATENT AND INTACT, DOBUTAMINE @ 5MCG/KG/MIN CURRENTLY INFUSING, TOLERATING WELL, SBP SUSTAINED ABOVE 95. ALBUMIN ALSO CURRENTLY INFUSING, TOLERATING WELL, BUMEX DRIP TO BE STARTED AFTER ALBUMIN INFUSION. F/C PATENT AND INTACT, DRAINING CLEAR YELLOW/OUSMANE COLORED URINE TO GRAVITY. WILL CONTINUE TO CLOSELY MONITOR THE PATIENT
--- NOTE | 2017-04-18 20:00 | NUR ---
RN CLOSING NOTES PATIENT C/O 10/10 PAIN, SCREAMING, AGITATED. ADMINISTERED PAIN MEDICATION ORDERED. WILL CONTINUE TO CLOSELY MONITOR
[2017-04-18] MEDS ORDERED: SECONDARY IV SET 1 EA INFUS.SET MC ONE ×2 (20:04→21:11)
[2017-04-18] MEDS ORDERED: BUMETANIDE INJ 6 MG in IV NS 0.9% 36 ML IV ONE (22:00)
--- NOTE | 2017-04-18 22:50 | NUR ---
EYEGLASS LENS CUTTER : REPORT RECEIVED FROM ANTONIETA MORALEZ
--- NOTE | 2017-04-18 22:50 | NUR ---
RN NOTES PATIENT ENDORSED TO NURSE SEXTON FOR CONTINUITY OF CARE
[2017-04-18] MEDS ORDERED: IV SET PRIMARY PUMP SET 1 EA INFUS.SET MC ONE (23:50)
[2017-04-19] VITALS (61 sets, daily range): BP systolic 81–118; BP diastolic 33–81
[2017-04-19] MEDS: HYDROMORPHONE 1 MG/1 ML DISP.SYRIN IV PRN ×3 (03:47→23:59)
[2017-04-19 04:52] LABS: BASOPHILS % (AUTO) 0.4 % (0.0-2.0); EOSINOPHILS # (AUTO) 0.2 /CMM (0.0-0.7); EOSINOPHILS % (AUTO) 1.6 % (0.0-6.0); HEMATOCRIT 32 % (39-51); HEMOGLOBIN 10.6 g/dL (13.5-17.5); LYMPHOCYTES # (AUTO) 0.7 /CMM (0.8-4.8); LYMPHOCYTES % (AUTO) 5.9 % (20.0-44.0); MEAN CORPUSCULAR HEMOGLOBIN 28 PG (26.0-33.0); MEAN CORPUSCULAR HGB CONC 33 g/dl (31.0-36.0); MEAN CORPUSCULAR VOLUME 85 fL (80-96); MONOCYTES # (AUTO) 0.6 /CMM (0.1-1.30); MONOCYTES % (AUTO) 4.8 % (2.0-12.0); NEUTROPHILS # (AUTO) 10.3 /CMM (1.8-8.9); NEUTROPHILS % (AUTO) 87.3 % (43.0-81.0); PLATELET COUNT (AUTO) 328 /CMM (150-450); RDW COEFFICIENT OF VARIATION 18.5 (11.5-15.0); RED BLOOD CELL COUNT(AUTO) 3.84 MIL/uL (4.5-6.0); WHITE BLOOD COUNT (AUTO) 11.8 K/uL (4.3-11.0)
[2017-04-19 05:26] LABS: CALCIUM, SERUM 8.5 mg/dL (8.5-10.1); MAGNESIUM 2.1 mg/dL (1.8-2.4); PHOSPHORUS 3.5 mg/dL (2.5-4.9); POTASSIUM 3.5 mmol/L (3.5-5.1)
[2017-04-19] MEDS: VANCOMYCIN 1.25 GM in IV D5W 500 ML IV SCH ×2 (05:34→17:00)
[2017-04-19] MEDS: PIPERACILLIN /TAZOBACTAM 3.375 G in IV D5W 50 ML IV SCH ×4 (06:15→23:06)
[2017-04-19] MEDS: LACTOBACILLUS RHAMNOSUS GG 1 EACH CAP.SPRINK PO SCH ×2 (08:00→17:55)
[2017-04-19] MEDS: PANTOPRAZOLE 40 MG TABLET.DR PO SCH (08:00)
--- NOTE | 2017-04-19 08:00 | NUR ---
BOILING TUB OPERATOR NOTE: RECEIVED PATIENT IN BED, AWAKE, ALERT X2, WITH PERIODS OF AGITATION.BREATHING EVEN AND NONLABORED WHILE ON O2 VIA NC @ 4LPM, TOLERATING WELL. BEDSIDE TELEMETRY MONITORING REVEALS SINUS TACHYCARDIA WITH OCCASIONAL PVCs, HR CURRENTLY 105. 1:1 SITTER AT BEDSIDE FOR SAFETY. JAVI PICC PATENT AND INTACT, DOBUTAMINE @ 5MCG/KG/MIN CURRENTLY INFUSING, TOLERATING WELL, SBP SUSTAINED ABOVE9 90. F/C PATENT AND INTACT, DRAINING CLEAR YELLOW/OUSMANE COLORED URINE TO GRAVITY. SAFETY MAINTAINED. ISOLATION PRECAUTIONS OBSERVED. WILL CONTINUE TO CLOSELY MONITOR THE PATIENT
[2017-04-19] MEDS: QUETIAPINE FUMARATE 25 MG TABLET PO SCH ×4 (08:01→20:21)
[2017-04-19] MEDS: BOOST PLUS FOOD-CHOCLATE 237 ML BOX PO SCH ×3 (08:03→17:55)
[2017-04-19] MEDS: MUPIROCIN OINT 2% 22 GM TUBE SCH ×2 (08:06→20:25)
[2017-04-19] MEDS: DOBUTamine 500 MG in IV D5W 210 ML IV PRN ×2 (10:39→13:34)
--- NOTE | 2017-04-19 11:30 | NUR ---
TRIAL MANAGEMENT ASSOCIATE NOTE: PER ORDER DOBUTAMINE DRIP CHANGED TO 2.5MCG/KG/MIN. ONGOING MONITORING.
[2017-04-19] MEDS: UREA 10% -AHA 4% CREAM 57 GM TUBE TP SCH ×2 (11:40→17:55)
--- NOTE | 2017-04-19 18:51 | NUR ---
PLASTIC WELDING MACHINE OPERATOR NOTE: PATIENT IN BED, AWAKE, ALERT X2, WITH PERIODS OF AGITATION. BREATHING EVEN AND NONLABORED WHILE ON RA TOLERATING WELL. BEDSIDE TELEMETRY MONITORING REVEALS SINUS TACHYCARDIA WITH OCCASIONAL PVCs, 1:1 SITTER AT BEDSIDE FOR SAFETY. JAVI PICC PATENT AND INTACT, DOBUTAMINE @ 2.5MCG/KG/MIN CURRENTLY INFUSING, TOLERATING WELL, SBP SUSTAINED ABOVE9 90. F/C PATENT AND INTACT, DRAINING CLEAR YELLOW/OUSMANE COLORED URINE TO GRAVITY, 3L NOTED OUTPUT SAFETY MAINTAINED. ISOLATION PRECAUTIONS OBSERVED. WILL ENDORSE FOR CONTINUITY OF CARE.
--- NOTE | 2017-04-19 19:00 | NUR ---
RN INITIAL NOTES RECEIVED PT AWAKE ON BED, A/O X2. ON 5250 HOLD FOR DANGER TO OTHERS, BILATERAL SOFT WRIST RESTRAINTS CURRENTLY OFF, SITTER REMAINS AT BEDSIDE. ON ROOM AIR SATURATING WELL, NO S/S OF RESP DISTRESS. CURRENTLY ST ON THE MONITOR, HR 100'S. LOMAX CATH INTACT. LEFT UPPER ARM PICC WITH DOBUTAMINE DRIP @ 2.5MCG/KG/MIN, FLUSHED AND PATENT, NO S/S OF INFILTRATION/INFECTION, DRESSING CDI. BED LOW AND LOCKED, SIDERAILS UP. WILL MONITOR CLOSELY
[2017-04-19] MEDS: ACETAMINOPHEN 325 MG TABLET PO PRN (23:33)
[2017-04-20] VITALS (31 sets, daily range): BP systolic 88–127; BP diastolic 41–90
[2017-04-20] MEDS: HYDROMORPHONE 1 MG/1 ML DISP.SYRIN IV PRN ×3 (03:58→18:31)
[2017-04-20] MEDS: VANCOMYCIN 1.25 GM in IV D5W 500 ML IV SCH ×2 (04:02→08:04)
[2017-04-20 05:00] LABS: BASOPHILS % (AUTO) 0.2 % (0.0-2.0); EOSINOPHILS # (AUTO) 0.1 /CMM (0.0-0.7); EOSINOPHILS % (AUTO) 0.9 % (0.0-6.0); HEMATOCRIT 31 % (39-51); HEMOGLOBIN 10.1 g/dL (13.5-17.5); LYMPHOCYTES % (AUTO) 8.7 % (20.0-44.0); MEAN CORPUSCULAR HEMOGLOBIN 28 PG (26.0-33.0); MEAN CORPUSCULAR HGB CONC 33 g/dl (31.0-36.0); MEAN CORPUSCULAR VOLUME 84 fL (80-96); MONOCYTES # (AUTO) 0.7 /CMM (0.1-1.30); NEUTROPHILS # (AUTO) 9.7 /CMM (1.8-8.9); NEUTROPHILS % (AUTO) 84.2 % (43.0-81.0); PLATELET COUNT (AUTO) 344 /CMM (150-450); RDW COEFFICIENT OF VARIATION 18.5 (11.5-15.0); RED BLOOD CELL COUNT(AUTO) 3.66 MIL/uL (4.5-6.0); WHITE BLOOD COUNT (AUTO) 11.5 K/uL (4.3-11.0)
[2017-04-20] MEDS: PIPERACILLIN /TAZOBACTAM 3.375 G in IV D5W 50 ML IV SCH ×4 (05:05→23:31)
[2017-04-20 05:15] LABS: PHOSPHORUS 2.6 mg/dL (2.5-4.9); POTASSIUM 3.6 mmol/L (3.5-5.1)
--- NOTE | 2017-04-20 06:30 | NUR ---
RN CLOSING NOTES PT REMAINS STABLE OF THE MOMENT. ALL DUE MEDS GIVEN, AM CARE PROVIDED. WILL ENDORSE CONTINUITY OF CARE TO AM RN
[2017-04-20] MEDS ORDERED: VANCOMYCIN 1 GM in IV D5W 250 ML IV SCH (08:00)
--- NOTE | 2017-04-20 08:00 | NUR ---
PT AWAKE, ALERT, FOLLOWS COMMANDS. SITTER AT BEDSIDE. STATES HE WANTS TO GO AMA [facility]. COMPLAINS OF PAIN. VSS. DOBUTAMINE RUNNING AT 2.5 MICS. MEDICATED WITH TYLENOL AND DILAUDID. ASSISTED WITH AM HYGIENE AND BREAKFAST.
[2017-04-20] MEDS: LACTOBACILLUS RHAMNOSUS GG 1 EACH CAP.SPRINK PO SCH ×2 (08:16→17:52)
[2017-04-20] MEDS: LORAZEPAM 1 MG TABLET PO PRN (08:16)
[2017-04-20] MEDS: QUETIAPINE FUMARATE 25 MG TABLET PO SCH ×4 (08:17→20:11)
[2017-04-20] MEDS: PANTOPRAZOLE 40 MG TABLET.DR PO SCH (08:17)
[2017-04-20] MEDS: ACETAMINOPHEN 325 MG TABLET PO PRN ×2 (08:17→18:31)
[2017-04-20] MEDS: BOOST PLUS FOOD-CHOCLATE 237 ML BOX PO SCH ×3 (09:00→18:31)
[2017-04-20] MEDS: UREA 10% -AHA 4% CREAM 57 GM TUBE TP SCH ×2 (09:01→17:53)
[2017-04-20] MEDS: MUPIROCIN OINT 2% 22 GM TUBE SCH ×2 (09:02→20:10)
[2017-04-20] MEDS: DOBUTamine 500 MG in IV D5W 210 ML IV PRN (12:09)
[2017-04-20] MEDS ORDERED: IV NS 0.9% 250 ML IV ONE (12:28)
[2017-04-20] MEDS ORDERED: SECONDARY IV SET 1 EA INFUS.SET MC ONE (12:28)
[2017-04-20] MEDS ORDERED: IV SET PRIMARY PUMP SET 1 EA INFUS.SET MC ONE (12:28)
--- NOTE | 2017-04-20 13:00 | NUR ---
DR. SINGH HERE TO SEE PT. DOLBUTAMIN D/C. VSS. PT ASSISTED WITH LUNCH.
[2017-04-20] MEDS: BUMETANIDE (1 MG) 1 MG TABLET PO SCH ×2 (13:49→17:52)
--- NOTE | 2017-04-20 14:15 | NUR ---
ALFRED FROM PATIENTS RIGHTS IN HERE TO SEE PT. PT MADE AWARE DUE TO 14 DAY HOLD THERE WILL BE HEARING AND HE WILL BE REPRESENTED. PT VERBALIZE UNDERSTANDING. HOWEVER STATES THAT HE WANTS TO GO AGAINST MEDICAL ADVICE STILL. HE IS REASSURED THAT ONCE THE HOLD IS COMPLETE HE WILL BE ABLE TO GO AMA IF HE SO CHOOSES.
--- NOTE | 2017-04-20 21:06 | NUR ---
rn:icu: pt received in bed alert x 1-2, able to follow commands. pt on 5250 hold with sitter at bedside. restraints off at this time but patient continues to have periods of confusion and restlessness. pt instructed to keep in mind his left upper arm picc line. attempted to hide lines to ensure they will not be pulled out. all safety precautions taken. pt has episodes of desaturation while sleeping but the o2 sat increases to 90's shortly after. pt has hx of sleep apnea. will continue to monitor closely. 2l nc place on pt while he is sleeping.
[2017-04-21] VITALS (30 sets, daily range): BP systolic 71–133; BP diastolic 29–94
--- NOTE | 2017-04-21 00:09 | NUR ---
rn:icu: pt picc line remains intact but does have some resistence when flushing and is positional, tko running per md orders and line also frequently flushed. will continue to monitor closely.
[2017-04-21] MEDS: HYDROMORPHONE 1 MG/1 ML DISP.SYRIN IV PRN ×4 (01:47→21:02)
[2017-04-21] MEDS: LORAZEPAM 1 MG TABLET PO PRN ×3 (03:56→23:52)
[2017-04-21] MEDS: QUETIAPINE FUMARATE 25 MG TABLET PO PRN ×2 (04:26→09:56)
[2017-04-21 04:49] LABS: BASOPHILS % (AUTO) 0.3 % (0.0-2.0); EOSINOPHILS % (AUTO) 0.6 % (0.0-6.0); HEMATOCRIT 30 % (39-51); HEMOGLOBIN 9.7 g/dL (13.5-17.5); LYMPHOCYTES # (AUTO) 0.9 /CMM (0.8-4.8); MEAN CORPUSCULAR HEMOGLOBIN 28 PG (26.0-33.0); MEAN CORPUSCULAR HGB CONC 33 g/dl (31.0-36.0); MEAN CORPUSCULAR VOLUME 85 fL (80-96); MONOCYTES # (AUTO) 0.5 /CMM (0.1-1.30); MONOCYTES % (AUTO) 6.6 % (2.0-12.0); NEUTROPHILS # (AUTO) 6.7 /CMM (1.8-8.9); NEUTROPHILS % (AUTO) 81.5 % (43.0-81.0); PLATELET COUNT (AUTO) 370 /CMM (150-450); RDW COEFFICIENT OF VARIATION 19.4 (11.5-15.0); RED BLOOD CELL COUNT(AUTO) 3.49 MIL/uL (4.5-6.0); WHITE BLOOD COUNT (AUTO) 8.2 K/uL (4.3-11.0)
--- NOTE | 2017-04-21 04:53 | NUR ---
rn:icu: pt becoming very restless and impulsive. yelling and with extremely high anxiety. pt medicated per md orders for severe agitation. sitter at the bedside. attempted to deescalate situation, pt appearing slightly less anxious.
[2017-04-21 04:57] LABS: MAGNESIUM 1.9 mg/dL (1.8-2.4); PHOSPHORUS 2.7 mg/dL (2.5-4.9); POTASSIUM 3.9 mmol/L (3.5-5.1)
[2017-04-21] MEDS: PIPERACILLIN /TAZOBACTAM 3.375 G in IV D5W 50 ML IV SCH ×4 (05:17→23:55)
[2017-04-21] MEDS ORDERED: SECONDARY IV SET 1 EA INFUS.SET MC ONE (07:22)
[2017-04-21] MEDS: PANTOPRAZOLE 40 MG TABLET.DR PO SCH (07:46)
[2017-04-21] MEDS: VANCOMYCIN 1.25 GM in IV D5W 500 ML IV SCH (07:46)
[2017-04-21] MEDS: BOOST PLUS FOOD-CHOCLATE 237 ML BOX PO SCH ×3 (08:00→17:54)
[2017-04-21] MEDS: QUETIAPINE FUMARATE 25 MG TABLET PO SCH ×3 (08:16→17:54)
[2017-04-21] MEDS: BUMETANIDE (1 MG) 1 MG TABLET PO SCH (08:16)
[2017-04-21] MEDS: LACTOBACILLUS RHAMNOSUS GG 1 EACH CAP.SPRINK PO SCH ×2 (08:16→17:54)
[2017-04-21] MEDS: UREA 10% -AHA 4% CREAM 57 GM TUBE TP SCH ×2 (08:17→17:54)
[2017-04-21] MEDS: MUPIROCIN OINT 2% 22 GM TUBE SCH ×2 (08:17→21:03)
[2017-04-21] MEDS ORDERED: OLANZAPINE 10 MG VIAL IM STA (09:54)
--- NOTE | 2017-04-21 10:08 | NUR ---
PT SEVERELY AGITATED, PULLING OFF LINES AND AT LOMAX. TRYING TO GET UP OUT OF BED, SCREAMING AND YELLING. PRN'S ALREADY GIVEN WITH POOR EFFECT. CALLED DR. DAVIS TO NOTIFY HIM OF THE SITUATION. HE ORDERS FOR 10MG OF ZYPREXA IM STAT. ORDER INPUT PHARMACY NOTIFIED.
--- NOTE | 2017-04-21 13:31 | NUR ---
PT ASSISTED TO THE RESTROOM. HE NEEDS ASSISTANCE DUE TO UNSTEADY GAIT. HAD A VERY LARGE BM, ASSISTED BACK TO A FRESH BED AND NOW HE IS RESTING COMFORTABLE. STILL PULLING AT EKG LINES DESPITE EDUCATION ABOUT ITS NEED.
[2017-04-21] MEDS: CARVEDILOL 3.125 MG TABLET PO SCH (21:00)
--- NOTE | 2017-04-21 21:04 | NUR ---
LABOR RELATIONS DIRECTOR DF DILAUDID 1MG IVP ADMIN PT C/O SEVERE PAIN/GENERALIZED. PT WITH HX OF OPIATE ABUSE/WITHDRAW PT BECAME VERY RESTLESS,AGITATED REQUESTING STAT ADMIN.VSS. A/OX2. 1:1 SITTER AT BEDSIDE 2ND TO 5250 PER PSYCHE .
--- NOTE | 2017-04-21 23:55 | NUR ---
SYSTEM VALIDATION ENGINEER DF PT AGITATED,RESTLESS, PT REQUESTING ATIVAN. I ADMIN ATIVAN 2MG PO PRN AGITATION. VSS.NAD NOTED.
[2017-04-22] VITALS (19 sets, daily range): BP systolic 81–125; BP diastolic 44–80
[2017-04-22] MEDS: HYDROMORPHONE 1 MG/1 ML DISP.SYRIN IV PRN ×3 (01:00→10:27)
--- NOTE | 2017-04-22 01:41 | NUR ---
PIPE BUFFER DF @0100 PT AGITATED,RESTLESS PT UNCOOPERATIVE WITH SITTER PT ATTEMPTING TO PULL ON LOMAX CATH,REMOVING MONITORING CABLES. PT C/O GENERALIZED PAIN 5/10 C/O S/S OF OPIATE WD. PER EMAR PT MEDICATED WITH DILAUDID 1MG IVP. PT COOPERATIVE,CALM POST DILAUDID ADMIN. PT WITH FLUCTUATING O2 SAT OF 78% FOR ABOUT 5-10 SECONDS THEN PT RESUMES BASELINE O2SAT OF AROUND 94-95% PT WITH N/C AT 2LPM PT UNCOOPERATIVE WITH N/C BUT WILL ALLOW TO BE PLACED AROUND HIS MOUTH. PT WITH SLEEP APNEA MD AWARE. PT RECOMMENDED TO HAVE SLEEP STUDY DX AN OUTPATIENT WHEN PT IS DISCHARGED. VSS.NAD NOTED. 1:1 JUANA FAUSTIN LVN AT BEDSIDE PT ON 14 DAY HOLD 4044 SEE PSYCHE H&P FOR DETAILS.
--- NOTE | 2017-04-22 03:10 | NUR ---
VETERINARY MILK SPECIALIST DF PT WITH DESATURATION WHILE SLEEPING DSATS TO 78% FOR ABOUT 30 SECONDS THEN RETURNS TO 93-96% RR OF 26 PT WITH SLEEP APNEA. PT REFUSES NASAL CANULA/PT REFUSES SIMPLE MASK. PT HAS BIPAP THERAPY PRN HOWEVER PT IS NON COMPLIANT AND IN THE PAST HAS REFUSED BIPAP UNCOOPERATIVE/COMBATIVE.PT REFUSING CARDIAC MONITORING CONSTANTLY REMOVES EKG CABLES AND BP CUFF.1:1 SITTER AT BEDSIDE RECONNECTED PT TO MONITOR VSS,NAD NOTED. PT VERY AGITATED, UNCOOPERATIVE PT DROWSY AROUSES TO VERBAL STIMULI. Addendum: 04/22/17 at 0317 by JORGITO CHRISTIANSON RN PER ORDERS OKAY TO HAVE O2SAT OF 88-90%
[2017-04-22] MEDS: PIPERACILLIN /TAZOBACTAM 3.375 G in IV D5W 50 ML IV SCH ×3 (05:57→16:47)
--- NOTE | 2017-04-22 06:55 | NUR ---
MEDICAL INTERPRETER DF DILAUDID 1MG IVP ADMIN FOR AGITATION/RESTLESSNESS.VSS.NAD NOTED.
[2017-04-22] MEDS: PANTOPRAZOLE 40 MG TABLET.DR PO SCH (08:15)
[2017-04-22] MEDS: BUMETANIDE (1 MG) 1 MG TABLET PO SCH (08:16)
[2017-04-22] MEDS: CARVEDILOL 3.125 MG TABLET PO SCH ×2 (08:16→21:00)
[2017-04-22] MEDS: QUETIAPINE FUMARATE 25 MG TABLET PO SCH ×3 (08:16→16:44)
[2017-04-22] MEDS: LACTOBACILLUS RHAMNOSUS GG 1 EACH CAP.SPRINK PO SCH ×2 (08:16→16:44)
[2017-04-22] MEDS: UREA 10% -AHA 4% CREAM 57 GM TUBE TP SCH ×2 (08:17→16:46)
[2017-04-22] MEDS: MUPIROCIN OINT 2% 22 GM TUBE SCH ×2 (08:18→21:32)
[2017-04-22] MEDS: VANCOMYCIN 1.25 GM in IV D5W 500 ML IV SCH (08:20)
[2017-04-22] MEDS ORDERED: IV NS 0.9% 250 ML IV ONE (09:05)
[2017-04-22] MEDS: BOOST PLUS FOOD-CHOCLATE 237 ML BOX PO SCH ×3 (09:10→16:45)
--- NOTE | 2017-04-22 09:32 | NUR ---
Seen by Dr. Hidalgo (PMD) and Jack Frame Tender, cleared to transfer to telemetry. Vitals signs stable, patient alert and follows command. Attempt made to assess orientation patient only made sarcastic remarks/response.
[2017-04-22] MEDS ORDERED: IV SET PRIMARY PUMP SET 1 EA INFUS.SET MC ONE (10:00)
--- NOTE | 2017-04-22 10:30 | NUR ---
Transferred to Tele [phone]. Vitals stable, restless on bed, pain meds given for pain. Patient stated he is ok. Continued vanco IvP on floor. With sitter. Report given to Kaye MORALEZ
--- NOTE | 2017-04-22 10:40 | NUR ---
RECEIVED REPORT FROM ICU, RN
--- NOTE | 2017-04-22 12:42 | NUR ---
[facility]
[2017-04-22] MEDS ORDERED: SECONDARY IV SET 1 EA INFUS.SET MC ONE (14:08)
[2017-04-22] MEDS: SOD FERRIC GLUC 125 MG in IV NS 0.9% 100 ML IV SCH (14:13)
--- NOTE | 2017-04-22 18:55 | NUR ---
RN CLOSING NOTES PATIENT IS TRANSFERRED FROM ICU TO THE UNIT WITH 1:1 SITTER FOR 5250 EXPIRING ON 04/30/17. PATIENT IS ALERT BUT CONFUSED. SINUS TACHY ON THE MONITOR. KEEP OXYGEN BETWEEN 88-90%. NO SIGNS AND SYMPTOMS OF DISTRESS. DENIED PAIN. PICC LINE IS INTACT AND PATENT, TKO. LOMAX IS IN PLACE, DARK URINE IS NOTED. BED IN LOW POSITION, LOCKED AND TWO SIDE RAILS ARE UP. WILL ENDORSE TO BOX TURNER NURSE
--- NOTE | 2017-04-22 19:50 | NUR ---
GEOTECHNICAL OPERATING ENGINEER NOTE: PATIENT RESTING IN BED, NO ACUTE DISTRESS NOTED, SITTER AT BEDSIDE. BREATHING EVEN AND UNLABORED, NO SOB NOTED. PICC LINE TO LEFT UPPER ARM IN PLACE. TELE READING SINUS TACH 110. LOMAX CATHETER IN PLACE, EMPTY AT THIS TIME. ISOLATION PRECAUTION OBSERVED. BED LOCKED AND IN LOWEST POSITION, CALL LIGHT IN REACH. WILL CONTINUE TO MONITOR.
[2017-04-22] MEDS: LORAZEPAM 1 MG TABLET PO PRN (21:31)
--- NOTE | 2017-04-22 21:45 | NUR ---
HERPETOLOGIST NOTE: PATIENT AGITATED, REMOVING BLANKETS AND TELE MONITOR. ATIVAN 2MG ORAL GIVEN PER MD ORDER. WILL CONTINUE TO MONITOR.
[2017-04-23] MEDS: PIPERACILLIN /TAZOBACTAM 3.375 G in IV D5W 50 ML IV SCH ×4 (00:05→17:47)
--- NOTE | 2017-04-23 01:00 | NUR ---
BUILDING SURVEYOR NOTE: PATIENT PULLING OF TELE MONITOR AND GOWN AND BLANKETS. TELE MONITOR ON HOLD AT THIS TIME. PATIENT PICC LINE DRESSING COMING OFF. PICC LINE DRESSING CHANGED. WILL CONTINUE TO MONITOR.
[2017-04-23 06:04] VITALS: BP 108/56
--- NOTE | 2017-04-23 06:20 | NUR ---
MAGNAFLUX OPERATOR NOTE: PATIENT RESTING IN BED, NO ACUTE DISTRESS NOTED, SITTER AT BEDSIDE. BREATHING EVEN AND UNLABORED, NO SOB NOTED. PICC LINE TO LEFT UPPER ARM IN PLACE. TELE READING SINUS TACH 105. LOMAX CATHETER IN PLACE. ISOLATION PRECAUTION OBSERVED. BED LOCKED AND IN LOWEST POSITION, CALL LIGHT IN REACH. WILL ENDORSE TO DAY NURSE TO CONTINUE WITH PLAN OF CARE.
[2017-04-23 07:13] LABS: BASOPHILS % (AUTO) 0.2 % (0.0-2.0); EOSINOPHILS # (AUTO) 0.1 /CMM (0.0-0.7); EOSINOPHILS % (AUTO) 1.1 % (0.0-6.0); HEMATOCRIT 29 % (39-51); HEMOGLOBIN 9.5 g/dL (13.5-17.5); LYMPHOCYTES # (AUTO) 0.9 /CMM (0.8-4.8); LYMPHOCYTES % (AUTO) 11.3 % (20.0-44.0); MEAN CORPUSCULAR HEMOGLOBIN 27 PG (26.0-33.0); MEAN CORPUSCULAR HGB CONC 33 g/dl (31.0-36.0); MEAN CORPUSCULAR VOLUME 83 fL (80-96); MONOCYTES # (AUTO) 0.7 /CMM (0.1-1.30); MONOCYTES % (AUTO) 8.4 % (2.0-12.0); NEUTROPHILS # (AUTO) 6.4 /CMM (1.8-8.9); PLATELET COUNT (AUTO) 331 /CMM (150-450); RDW COEFFICIENT OF VARIATION 18.7 (11.5-15.0); RED BLOOD CELL COUNT(AUTO) 3.46 MIL/uL (4.5-6.0); WHITE BLOOD COUNT (AUTO) 8.2 K/uL (4.3-11.0)
--- NOTE | 2017-04-23 07:15 | NUR ---
RECEIVED PATIENT IN BED, SLEEPING IN SEMI-FOWLERS. PT IS ALERT AND ORIENTED X 2, CONFUSED. 1:1 SITTER PRESENT IN THE ROOM. PICC LINE ON JAVI INTACT AND PATENT. BED IS IN LOW AND LOCKED POSITION, BED ALARM IS ON AND CALL LIGHT IS IN REACH. WILL CONTINUE TO MONITOR THROUGHOUT SHIFT.
[2017-04-23 07:31] LABS: ALBUMIN 1.8 g/dL (3.4-5.0); BILIRUBIN,TOTAL 1.4 mg/dL (0.2-1.0); CREATININE 1.1 mg/dL (0.6-1.3); TOTAL PROTEIN, SERUM 7.1 g/dL (6.4-8.2)
[2017-04-23] MEDS: PANTOPRAZOLE 40 MG TABLET.DR PO SCH (07:44)
[2017-04-23] MEDS ORDERED: SECONDARY IV SET 1 EA INFUS.SET MC ONE ×3 (07:56→20:26)
[2017-04-23 08:00] VITALS: BP 92/42
--- NOTE | 2017-04-23 08:05 | NUR ---
VANCOMYCIN TROUGH 7 PATIENT IS ON VANCOMYCIN 1.25GM, INFORMED PHARMACY, SAME DOSE PER PHARMACY, SPOKE TO ELISABETH.
[2017-04-23] MEDS: BUMETANIDE (1 MG) 1 MG TABLET PO SCH (08:30)
[2017-04-23] MEDS: QUETIAPINE FUMARATE 25 MG TABLET PO SCH ×3 (08:31→16:56)
[2017-04-23] MEDS: LACTOBACILLUS RHAMNOSUS GG 1 EACH CAP.SPRINK PO SCH ×2 (08:31→16:56)
[2017-04-23] MEDS: CARVEDILOL 3.125 MG TABLET PO SCH ×2 (08:31→20:30)
[2017-04-23] MEDS: MUPIROCIN OINT 2% 22 GM TUBE SCH ×2 (08:41→20:32)
[2017-04-23] MEDS: UREA 10% -AHA 4% CREAM 57 GM TUBE TP SCH ×2 (08:42→16:57)
[2017-04-23] MEDS: VANCOMYCIN 1.25 GM in IV D5W 500 ML IV SCH (08:43)
[2017-04-23] MEDS: BOOST PLUS FOOD-CHOCLATE 237 ML BOX PO SCH ×3 (08:44→16:57)
[2017-04-23] MEDS: LORAZEPAM 1 MG TABLET PO PRN ×2 (09:33→20:30)
--- NOTE | 2017-04-23 11:00 | NUR ---
TELEMETRY LEADS ARE NOT CONNECTED BECAUSE PATIENT REFUSES TO HAVE THEM ON. Addendum: 04/23/17 at [address] RN INFORMED DR. HEATH
[2017-04-23 12:00] VITALS: BP 107/69
[2017-04-23] MEDS: SOD FERRIC GLUC 125 MG in IV NS 0.9% 100 ML IV SCH (14:22)
[2017-04-23 16:00] VITALS: BP 82/42
[2017-04-23 17:50] VITALS: BP 84/57
--- NOTE | 2017-04-23 18:43 | NUR ---
PATIENT IS AWAKE IN BED, SITTER IS AT BEDSIDE. PT HAS NO SOB AND NO SIGNS OF DISTRESS. JAVI PICC LINE IS INTACT AND PATENT. LOMAX CATHETER IS IN PLACE. BED IS IN LOW AND LOCKED POSITION, CALL LIGHT IS IN REACH. WILL ENDORSE TO INTELLIGENCE CLERK NURSE FOR CONTINUITY OF CARE.
--- NOTE | 2017-04-23 19:05 | NUR ---
RN NOTE RECEIVED REPORT. PT AWAKE, AND ALERT X2 - APPEARS AGITATED. DENIES CP/SOB. NO S/S OF ANY DISTRESS. IV INTACT AND PATENT, F/C DRAINING. 1:1 AT BEDSIDE, CALL LIGHT IN REACH. WILL CONT TO MONITOR. Addendum: 04/23/17 at 1942 by FARHAN LABOY RN REFUSING TELE MONITOR
[2017-04-23] MEDS ORDERED: VANCOMYCIN 1 GM in IV D5W 250 ML IV SCH (20:00)
[2017-04-23] MEDS: CLINDAMYCIN 600 MG in IV D5W 50 ML IV SCH (20:30)
--- NOTE | 2017-04-23 21:00 | NUR ---
RN NOTE DR PARHAM NOTIFIED OF PT BP 89/44, NO NEW ORDERS AT THIS TIME. WILL MONITOR.
[2017-04-24] VITALS: BP 93/50
[2017-04-24 04:00] VITALS: BP 98/64
[2017-04-24] MEDS: CLINDAMYCIN 600 MG in IV D5W 50 ML IV SCH ×3 (05:04→20:58)
[2017-04-24] MEDS: HYDROMORPHONE 1 MG/1 ML DISP.SYRIN IV PRN (05:07)
--- NOTE | 2017-04-24 06:35 | NUR ---
RN NOTE NO SIGNIFICANT CHANGES OVERNIGHT. PT RESTING COMFORTABLY IN BED AT THIS TIME. NO DISTRESS NOTED. CONFUSED AND UNCOOPERATIVE AT TIMES T/O SHIFT. REFUSING NC, AND TELE BOX DESPITE EDUCATION AND ENCOURAGEMENT- MD AWARE. 1:1 SITTER AT BEDSIDE, ALOK NTACT AND PATENT. WILL F/U WITH DAY SHIFT FOR ANGUS.
[2017-04-24 06:47] LABS: BASOPHILS % (AUTO) 0.3 % (0.0-2.0); EOSINOPHILS # (AUTO) 0.1 /CMM (0.0-0.7); EOSINOPHILS % (AUTO) 1.3 % (0.0-6.0); HEMATOCRIT 27 % (39-51); HEMOGLOBIN 8.9 g/dL (13.5-17.5); LYMPHOCYTES % (AUTO) 13.8 % (20.0-44.0); MEAN CORPUSCULAR HEMOGLOBIN 27 PG (26.0-33.0); MEAN CORPUSCULAR HGB CONC 33 g/dl (31.0-36.0); MEAN CORPUSCULAR VOLUME 83 fL (80-96); MONOCYTES # (AUTO) 0.7 /CMM (0.1-1.30); MONOCYTES % (AUTO) 9.8 % (2.0-12.0); NEUTROPHILS # (AUTO) 5.2 /CMM (1.8-8.9); NEUTROPHILS % (AUTO) 74.8 % (43.0-81.0); PLATELET COUNT (AUTO) 257 /CMM (150-450); RDW COEFFICIENT OF VARIATION 19.3 (11.5-15.0); RED BLOOD CELL COUNT(AUTO) 3.27 MIL/uL (4.5-6.0); WHITE BLOOD COUNT (AUTO) 6.9 K/uL (4.3-11.0)
[2017-04-24 07:09] LABS: CREATININE 1.1 mg/dL (0.6-1.3)
--- NOTE | 2017-04-24 07:15 | NUR ---
HAZMAT CDL A DRIVER NOTES RECEIVED PATIENT IN BED, APPEARS ANXIOUS. LEADS OFF, PATIENT REFUSING TO BE PLACED ON, MD IS AWARE. CONSTANTLY REMOVING OXYGEN VIA NC, NO C/O SOB. NOT ON HOSP GOWN, PATIENT KEPT REMOVING IT, PROVIDED BLANKET. PATIENT IS ON HOLD 5150, 1:1 SITTER AT THE BEDSIDE. LOMAX CATH IN TACT, DRAINING TO GRAVITY. JAVI PICC LINE INTACT, FLUSHES WELL. CALL LIGHT WITHIN REACH. WILL CONT TO MONITOR.
[2017-04-24] MEDS: BOOST PLUS FOOD-CHOCLATE 237 ML BOX PO SCH ×3 (07:57→17:21)
[2017-04-24] MEDS: PANTOPRAZOLE 40 MG TABLET.DR PO SCH (07:57)
[2017-04-24 08:00] VITALS: BP 89/64
[2017-04-24] MEDS: BUMETANIDE (1 MG) 1 MG TABLET PO SCH (08:00)
[2017-04-24] MEDS: LACTOBACILLUS RHAMNOSUS GG 1 EACH CAP.SPRINK PO SCH ×2 (08:00→17:21)
[2017-04-24] MEDS: QUETIAPINE FUMARATE 25 MG TABLET PO SCH ×3 (08:01→17:22)
[2017-04-24] MEDS: MUPIROCIN OINT 2% 22 GM TUBE SCH ×2 (08:06→20:58)
[2017-04-24] MEDS: UREA 10% -AHA 4% CREAM 57 GM TUBE TP SCH ×2 (08:55→17:44)
[2017-04-24] MEDS: CARVEDILOL 3.125 MG TABLET PO SCH ×2 (08:56→20:59)
[2017-04-24] MEDS: LORAZEPAM 1 MG TABLET PO PRN ×2 (11:18→21:42)
[2017-04-24 12:00] VITALS: BP 111/59
[2017-04-24] MEDS: SOD FERRIC GLUC 125 MG in IV NS 0.9% 100 ML IV SCH (14:53)
[2017-04-24] MEDS ORDERED: IV NS 0.9% 250 ML IV ONE (15:55)
[2017-04-24 16:00] VITALS: BP 115/54
[2017-04-24] MEDS ORDERED: IV SET PRIMARY PUMP SET 1 EA INFUS.SET MC ONE (16:35)
--- NOTE | 2017-04-24 18:10 | NUR ---
AIRCRAFT DESIGN ENGINEER CLOSING NOTES PATIENT IN BED, SLEEPING, AROUSES EASILY. NOT IN DISTRESS, WITH EPISODE OF INTERMITTENT ANXIETY DURING THE SHIFT, MEDICATED WITH PRN ATIVAN PO, EFFECTIVE. ON ANTIBIOTIC WITH NO ADVERSE REACTION, AFEBRILE. REMAINS ON 5250 HOLD, WITH 1:1 SITTER AT THE BEDSIDE. CALL LIGHT WITHIN REACH, BED LOW AND LOCKED. DR. DAVIS TO RESUME CARE ON TUESDAY PER DR. LEDEZMA. WILL ENDORSE TO OPERATIONS ARCHITECT RN FOR CONTINUITY OF CARE.
--- NOTE | 2017-04-24 19:10 | NUR ---
RN NOTE RECEIVED REPORT. PT RESTING IN BED WITH EYES CLOSED, APPEARS COMFORTABLE. NO S/S OF ANY DISTRESS AT THIS TIME. IV INTACT AND PATENT, TELE OFF PT REFUSING. 1:1 SITTER AT BEDSIDE. WILL CONT TO MONITOR.
[2017-04-24 20:00] VITALS: BP 120/56
[2017-04-25] VITALS: BP 112/60
--- NOTE | 2017-04-25 01:00 | NUR ---
RN NOTE PT RESTING IN BED WITH EYES CLOSED. NO DISTRESS NOTED AT THIS TIME. WILL MONITOR.
[2017-04-25] MEDS: HYDROMORPHONE 1 MG/1 ML DISP.SYRIN IV PRN (02:33)
[2017-04-25 04:00] VITALS: BP 128/58
[2017-04-25] MEDS: CLINDAMYCIN 600 MG in IV D5W 50 ML IV SCH ×2 (05:10→12:24)
--- NOTE | 2017-04-25 06:43 | NUR ---
RN NOTE NO SIGNIFICANT CHANGES OVERNIGHT. PT SLEPT WELL. AAOX2 WITH PERIODS OF AGITATION AND CONFUSION. NO S/S OF ANY DISTRESS AT THIS TIME, BUT PT CURSING. REFUSING TELE BOX - AWARE. IV INTACT AND PATENT. F/C DRAINING. 1:1 SITTER AT BEDSIDE. WILL F/U WITH DAY SHIFT FOR ANGUS.
--- NOTE | 2017-04-25 07:00 | NUR ---
HAND ROUTER OPERATOR NOTES RECEIVED PATIENT IN BED, APPEARS ANXIOUS. UNCOOPERATIVE, LEADS OFF, PATIENT REFUSED TO BE PLACED ON, MD IS AWARE. TOLERATING ROOM AIR, NO SOB. NOT ON HOSP GOWN, PATIENT KEPT REMOVING IT, PROVIDED BLANKET. PATIENT IS ON HOLD 5150, 1:1 SITTER AT THE BEDSIDE. LOMAX CATH IN TACT, DRAINING TO GRAVITY. JAVI PICC LINE INTACT, FLUSHES WELL. CALL LIGHT WITHIN REACH. WILL CONT TO MONITOR.
[2017-04-25 07:03] LABS: BASOPHILS % (AUTO) 0.4 % (0.0-2.0); EOSINOPHILS # (AUTO) 0.1 /CMM (0.0-0.7); EOSINOPHILS % (AUTO) 1.5 % (0.0-6.0); HEMATOCRIT 29 % (39-51); HEMOGLOBIN 9.5 g/dL (13.5-17.5); LYMPHOCYTES # (AUTO) 1.2 /CMM (0.8-4.8); LYMPHOCYTES % (AUTO) 17.6 % (20.0-44.0); MEAN CORPUSCULAR HEMOGLOBIN 28 PG (26.0-33.0); MEAN CORPUSCULAR HGB CONC 33 g/dl (31.0-36.0); MEAN CORPUSCULAR VOLUME 85 fL (80-96); MONOCYTES # (AUTO) 0.7 /CMM (0.1-1.30); MONOCYTES % (AUTO) 11.1 % (2.0-12.0); NEUTROPHILS # (AUTO) 4.7 /CMM (1.8-8.9); NEUTROPHILS % (AUTO) 69.4 % (43.0-81.0); PLATELET COUNT (AUTO) 294 /CMM (150-450); RDW COEFFICIENT OF VARIATION 18.9 (11.5-15.0); RED BLOOD CELL COUNT(AUTO) 3.39 MIL/uL (4.5-6.0); WHITE BLOOD COUNT (AUTO) 6.8 K/uL (4.3-11.0)
[2017-04-25 07:21] LABS: CALCIUM, SERUM 8.3 mg/dL (8.5-10.1); POTASSIUM 4.4 mmol/L (3.5-5.1)
[2017-04-25] MEDS: PANTOPRAZOLE 40 MG TABLET.DR PO SCH (07:39)
[2017-04-25] MEDS: LORAZEPAM 1 MG TABLET PO PRN ×2 (07:40→15:18)
[2017-04-25 08:00] VITALS: BP 134/107
[2017-04-25] MEDS: BOOST PLUS FOOD-CHOCLATE 237 ML BOX PO SCH ×3 (08:59→16:59)
[2017-04-25] MEDS: BUMETANIDE (1 MG) 1 MG TABLET PO SCH (08:59)
[2017-04-25] MEDS: LACTOBACILLUS RHAMNOSUS GG 1 EACH CAP.SPRINK PO SCH ×2 (09:00→16:54)
[2017-04-25] MEDS: CARVEDILOL 3.125 MG TABLET PO SCH ×2 (09:00→21:00)
[2017-04-25] MEDS: QUETIAPINE FUMARATE 25 MG TABLET PO SCH ×3 (09:01→16:54)
[2017-04-25] MEDS: MUPIROCIN OINT 2% 22 GM TUBE SCH ×2 (09:03→21:00)
[2017-04-25] MEDS: UREA 10% -AHA 4% CREAM 57 GM TUBE TP SCH ×2 (09:05→16:58)
--- NOTE | 2017-04-25 15:21 | NUR ---
PATIENT APPEARS ANXIOUS AND RESTLESS, YELLING OUT TO NURSES USING INAPPROPRIATE WORDS. GAIT AND BALANCE UNSTEADY, ASSISTED BACK PATIENT TO BED, MADE COMFORTABLE, GIVEN ATIVAN 2MG PO PRN, WILL REASSESS.
--- NOTE | 2017-04-25 15:27 | NUR ---
ANGELA STILL UNABLE AT THIS TIME, CALLED PHARMACY X4. WILL FOLLOW UP.
--- NOTE | 2017-04-25 15:45 | NUR ---
SPOKE TO DR. DAVIS ORDERED TO GIVE BENADRYL 50MG IM X1 AND ZYPREXA 10MG IM X1 NOTED AND ACKNOWLEDGED.
[2017-04-25] MEDS ORDERED: SECONDARY IV SET 1 EA INFUS.SET MC ONE (15:58)
[2017-04-25 16:00] VITALS: BP 103/64
[2017-04-25] MEDS ORDERED: diphenhydrAMINE HCL 50 MG/ML VIAL IM ONE (16:00)
[2017-04-25] MEDS ORDERED: OLANZAPINE 10 MG VIAL IM ONE (16:00)
[2017-04-25] MEDS: SOD FERRIC GLUC 125 MG in IV NS 0.9% 100 ML IV SCH (16:00)
--- NOTE | 2017-04-25 18:22 | NUR ---
MS RN CLOSING NOTES PATIENT IN BED, SLEEPING, AROUSES EASILY. APPEARS CALM AT THIS TIME, WITH INTERMITTENT EPISODE OF ANXIETY AND AGITATED BEHAVIOR DURING THE SHIFT, ON 1:1 SITTER AT THE BEDSIDE, REMAINS ON 5250 HOLD ORDERED. ON ANTIBIOTIC WITH NO ADVERSE REACTION, AFEBRILE. CALL LIGHT WITHIN REACH, BED LOW AND LOCKED. WILL ENDORSE TO POTATO CHIP COOKER MACHINE RN FOR CONTINUITY OF CARE.
--- NOTE | 2017-04-25 19:59 | NUR ---
ms/rn opening notes patient in bed asleep but arousable. can verbalize needs. on 1:1 sitter. provided care and kept comfortable. received endorsement from am rn regarding care w/ 5150. on ativan being monitored for s/s of agitation. will continue to monitor and provide care.
[2017-04-25 20:00] VITALS: BP 115/67
--- NOTE | 2017-04-25 20:15 | NUR ---
ms/rn notes patient had episode of de saturation on room air at 89 % requiring oxygenation nvia non breathing mask currently at 15l with 91% oxygenation. informed charge nurse and RT an dwill follow up with md for order.
--- NOTE | 2017-04-25 20:28 | NUR ---
ms/rn notes patient on non rebreather mask at 15l with o2 sat at 98 % pulse rate at 96 on mild distress.
--- NOTE | 2017-04-25 21:00 | NUR ---
ms/rn notes md contacted and ordered to monitor oxygenation and maintain atleast 89% on nasal canula 4l. on order of cpap already but patient refused. monitoring patient at this time.patient able to arouse w/ voice. can swallow hob elevated
[2017-04-25] MEDS: SULFAMETH/TRIMETH 800/160 MG 1 UDTAB TABLET PO SCH (21:49)
--- NOTE | 2017-04-26 05:49 | NUR ---
ms/rn notes patient assist to bathroom, able to brush teeth, and use toilet to urinate. postal transportation clerk informed patient regarding patietn spit with red color particle, check and observe some white saliva w/ red color solid particle when he cough/ will inform am rn for md follow up. patient requeted for a snack and juice and water.will continue to monitor.
--- NOTE | 2017-04-26 06:18 | NUR ---
ms/rn closing notes patient in bed, assisted and provided care. with 1:1 sitter. monitoring for any s/s of combative behavior. require assistance and reminders for safety. will endorse to am rn regarding continuity of care. being monitored for sob, on nasal canula with 4l.
[2017-04-26 07:33] LABS: BASOPHILS % (AUTO) 0.3 % (0.0-2.0); EOSINOPHILS # (AUTO) 0.1 /CMM (0.0-0.7); EOSINOPHILS % (AUTO) 1.8 % (0.0-6.0); HEMATOCRIT 29 % (39-51); HEMOGLOBIN 9.5 g/dL (13.5-17.5); LYMPHOCYTES # (AUTO) 1.6 /CMM (0.8-4.8); LYMPHOCYTES % (AUTO) 24.4 % (20.0-44.0); MEAN CORPUSCULAR HEMOGLOBIN 28 PG (26.0-33.0); MEAN CORPUSCULAR HGB CONC 33 g/dl (31.0-36.0); MEAN CORPUSCULAR VOLUME 85 fL (80-96); MONOCYTES # (AUTO) 0.9 /CMM (0.1-1.30); MONOCYTES % (AUTO) 12.8 % (2.0-12.0); NEUTROPHILS # (AUTO) 4.1 /CMM (1.8-8.9); NEUTROPHILS % (AUTO) 60.7 % (43.0-81.0); PLATELET COUNT (AUTO) 277 /CMM (150-450); RDW COEFFICIENT OF VARIATION 19.4 (11.5-15.0); RED BLOOD CELL COUNT(AUTO) 3.37 MIL/uL (4.5-6.0); WHITE BLOOD COUNT (AUTO) 6.8 K/uL (4.3-11.0)
--- NOTE | 2017-04-26 07:39 | NUR ---
NAOMY MS NOTES RECEIVED PATIENT IN BED, IN NO APPARENT DISTRESS, NO SOB, DENIES PAIN. SITTER AT BED SIDE MONITORING FOR COMBATIVE BEHAVIOR. JAVI PICC LINE PATENT. ALL NEEDS MET, KEPT CLEAN AND DRY. Addendum: 04/26/17 at 0746 by SEPIDEH CRANE RN LOMAX CATH PATENT, DRAINING YELLOW URINE.
[2017-04-26 07:41] VITALS: BP 103/52
[2017-04-26 08:03] LABS: CALCIUM, SERUM 8.3 mg/dL (8.5-10.1); POTASSIUM 3.9 mmol/L (3.5-5.1)
[2017-04-26] MEDS: CARVEDILOL 3.125 MG TABLET PO SCH ×2 (09:00→20:52)
[2017-04-26] MEDS: BOOST PLUS FOOD-CHOCLATE 237 ML BOX PO SCH ×3 (09:19→16:21)
[2017-04-26] MEDS: SULFAMETH/TRIMETH 800/160 MG 1 UDTAB TABLET PO SCH ×3 (09:20→21:13)
[2017-04-26] MEDS: PANTOPRAZOLE 40 MG TABLET.DR PO SCH (09:21)
[2017-04-26] MEDS: LACTOBACILLUS RHAMNOSUS GG 1 EACH CAP.SPRINK PO SCH ×2 (09:21→16:21)
[2017-04-26] MEDS: QUETIAPINE FUMARATE 25 MG TABLET PO SCH (09:23)
[2017-04-26] MEDS: UREA 10% -AHA 4% CREAM 57 GM TUBE TP SCH ×2 (09:24→16:22)
[2017-04-26] MEDS: MUPIROCIN OINT 2% 22 GM TUBE SCH ×2 (09:25→21:14)
[2017-04-26] MEDS: BUMETANIDE (1 MG) 1 MG TABLET PO SCH (09:26)
[2017-04-26] MEDS: QUETIAPINE FUMARATE 100 MG TABLET PO SCH ×3 (12:08→21:15)
[2017-04-26] MEDS ORDERED: SECONDARY IV SET 1 EA INFUS.SET MC ONE (17:04)
[2017-04-26] MEDS: SOD FERRIC GLUC 125 MG in IV NS 0.9% 100 ML IV SCH (17:05)
[2017-04-26 17:47] VITALS: BP 110/56
--- NOTE | 2017-04-26 18:33 | NUR ---
RN MS CLOSING NOTES PATIENT IN BED WITH SITTER AT BED SIDE. A/OX2, NO APPARENT DISTRESS NOTED. PATIENT CONSTANTLY REMOVES OXYGEN AND O2 SENSOR. ALL DUE MEDS GIVEN ALL NEEDS MET, KEPT CLEAN AND DRY. LOMAX CATH PATENT, DRAINING WELL. JAVI PICC LINE PATENT. WILL ENDORSE CARE TO PM SHIFT.
--- NOTE | 2017-04-26 19:40 | NUR ---
ms/rn opening notes patient in bed, in mild distress, require assistance and keep safe as patient observe weak and w/ sob. o2 sat in room air less than 89. probe was placed back and inform patient not to remove it to check oxygenation level. oxgen reading at 95%. b/p at 83/55 inform patient to drink water. patient stated: i want some pudding" provided pudding and will re check b/p. 1:1 sitter providing care for assistance. will continue to monitor.
[2017-04-26 19:45] VITALS: BP 83/55
[2017-04-26 21:00] VITALS: BP 100/60
[2017-04-26] MEDS: HYDROMORPHONE 1 MG/1 ML DISP.SYRIN IV PRN (22:22)
--- NOTE | 2017-04-26 22:22 | NUR ---
ms/rn notes patient observed guarding,with facial grimace and moaning. Verbalized severe pain in the lower legs/ severe/b/p check per protocol
--- NOTE | 2017-04-26 22:55 | NUR ---
ms/rn notes pain relief effectiveness observed. patient asleep w/ no s/s of discomfort.
--- NOTE | 2017-04-27 02:50 | NUR ---
ms/rn notes patient being monitored , able to sleeep that require monitoring due to sleep apnea, on 4 l oxygen via nc. patient requiring reminder not to remove nasal canulato prevent desaturation.
[2017-04-27] MEDS: HYDROMORPHONE 1 MG/1 ML DISP.SYRIN IV PRN (05:54)
--- NOTE | 2017-04-27 05:57 | NUR ---
ms/rn notes pain medication administered due to observed grimace, moaning and guarding on site. on lower extremity.will monitor pain effectiveness.
--- NOTE | 2017-04-27 06:12 | NUR ---
ms/rn closing notes patient was able to sleep atleast 5 hours during the night and awaken when need to be changed, assist w/ care, request food,keep warmth and pain medication for lower leg severe pain. 1:1 sitter at bedside for safety measures as patient exhibits impulsive behavior . monitoring and reassurance for care.
[2017-04-27 07:19] LABS: BASOPHILS % (AUTO) 0.4 % (0.0-2.0); EOSINOPHILS # (AUTO) 0.2 /CMM (0.0-0.7); EOSINOPHILS % (AUTO) 2.5 % (0.0-6.0); HEMATOCRIT 30 % (39-51); HEMOGLOBIN 9.7 g/dL (13.5-17.5); LYMPHOCYTES # (AUTO) 1.6 /CMM (0.8-4.8); LYMPHOCYTES % (AUTO) 19.5 % (20.0-44.0); MEAN CORPUSCULAR HEMOGLOBIN 28 PG (26.0-33.0); MEAN CORPUSCULAR HGB CONC 33 g/dl (31.0-36.0); MEAN CORPUSCULAR VOLUME 85 fL (80-96); MONOCYTES # (AUTO) 0.9 /CMM (0.1-1.30); MONOCYTES % (AUTO) 11.5 % (2.0-12.0); NEUTROPHILS # (AUTO) 5.3 /CMM (1.8-8.9); NEUTROPHILS % (AUTO) 66.1 % (43.0-81.0); PLATELET COUNT (AUTO) 279 /CMM (150-450); RDW COEFFICIENT OF VARIATION 19.7 (11.5-15.0); RED BLOOD CELL COUNT(AUTO) 3.47 MIL/uL (4.5-6.0); WHITE BLOOD COUNT (AUTO) 8.1 K/uL (4.3-11.0)
--- NOTE | 2017-04-27 07:25 | NUR ---
TIN TIE MACHINE OPERATOR AUTOMATIC OPENING RECEIVED PATIENT A/OX3 DENIES SOB, DIFFICULTY BREATHING AND STATES CONSTANT PAIN GENERALIZED ALWAYS 10/10. PATIENT IS SOB WITH ACTIVITY AND NEEDS PRN NASAL CANNULA 2LPM. PATIENT AT THIS TIME IS 94% ROOM AIR. PATIENT SITTER JOSEPHINE AT BEDSIDE. PATIENT APPEARS STABLE AT THIS TIME, LOMAX IN PLACE DRAINING WELL, IV INTACT AND PATENT. PATIENT STATES NO OTHER NEEDS AT THIS TIME. PATIENT WILL ITCH AT TIMES AND IS NOT GENTLE WITH ITCHING SO CONTINUES TO SCRATCH HIMSELF. EDUCATED ON SKIN SAFETY. PATIENT STATES HE KNOWS HE NEEDS TO SCRATCH SO A BLISTER CAN FORM AND THAT IS HOW HE GETS RID OF THE EXTRA WATER FROM HIS LEGS.. CALL LIGHT IN REACH, BED LOWERED AND LOCKED, RAILS UPX3 FOR SAFETY AND WILL ROUND Q2H OR LESS PER NEEDS.
[2017-04-27 07:29] LABS: CALCIUM, SERUM 8.2 mg/dL (8.5-10.1); CREATININE 0.9 mg/dL (0.6-1.3); MAGNESIUM 1.8 mg/dL (1.8-2.4); PHOSPHORUS 3.4 mg/dL (2.5-4.9); POTASSIUM 4.7 mmol/L (3.5-5.1)
[2017-04-27 08:00] VITALS: BP 97/60
[2017-04-27] MEDS: MUPIROCIN OINT 2% 22 GM TUBE SCH ×2 (08:11→21:52)
[2017-04-27] MEDS: BUMETANIDE (1 MG) 1 MG TABLET PO SCH (08:12)
[2017-04-27] MEDS: UREA 10% -AHA 4% CREAM 57 GM TUBE TP SCH ×2 (08:12→16:14)
[2017-04-27] MEDS: CARVEDILOL 3.125 MG TABLET PO SCH ×2 (08:12→21:00)
[2017-04-27] MEDS: LACTOBACILLUS RHAMNOSUS GG 1 EACH CAP.SPRINK PO SCH ×2 (08:12→16:13)
[2017-04-27] MEDS: QUETIAPINE FUMARATE 100 MG TABLET PO SCH ×4 (08:16→21:53)
[2017-04-27] MEDS: PANTOPRAZOLE 40 MG TABLET.DR PO SCH (08:17)
[2017-04-27] MEDS: BOOST PLUS FOOD-CHOCLATE 237 ML BOX PO SCH ×3 (08:18→16:13)
[2017-04-27] MEDS ORDERED: SULF1TAB3 PO (15:32)
[2017-04-27] MEDS ORDERED: MUPI22OI7 (15:32)
[2017-04-27] MEDS ORDERED: BUME1TAB16 PO (15:32)
[2017-04-27 16:00] VITALS: BP 96/58
--- NOTE | 2017-04-27 18:39 | NUR ---
MS RN CLOSING MD ALEJO AWARE PATIENT IS NOT YET DISCHARGED WE ARE WAITING ON PLACEMENT FOR CONTINUATION OF HOLD. PATIENT WAS STABLE TODAY AND COOPERATIVE. STILL WITH OUTBURSTS. ALL DUE MEDS GIVEN AND ALL NEEDS MET NO COMPLICATIONS. PATIENT IS CONTINUING TO SCRATCH AT LEGS AND ARMS; PROVIDING LOTIONS PRN. ALL NEEDS IN REACH AND PATIENT STATES NO NEEDS AT THIS TIME. CALL LIGHT IN REACH, BED LOWERED AND LOCKED, RAILS UPX3 FOR SAFETY WITH BED ALARM ON AND SITTER AT SIDE PER ORDER. WILL ENDORSE CARE TO RN FOR ANGUS
[2017-04-27] MEDS: SULFAMETH/TRIMETH 800/160 MG 1 UDTAB TABLET PO SCH (21:52)
[2017-04-28] MEDS: HYDROMORPHONE 1 MG/1 ML DISP.SYRIN IV PRN ×2 (00:53→05:25)
--- NOTE | 2017-04-28 06:21 | NUR ---
MS RN NOTES AWAKE & RESPONSIVE. NOT IN ANY DISTRESS. NO SOB NOTED. DENIES ANY PAIN OR DISCOMFORT AT THIS TIME. WITH IV-HL PATENT & INTACT. WITH SITTER AT BEDSIDE. MONITORED ACCORDINGLY. CALL LIGHT WITHIN REACH. BED IN LOWEST POSITION. SR UP X 2 FOR SAFETY WITH BED ALARM ON FOR SAFETY. WILL ENDORSE TO NEXT SHIFT.
--- NOTE | 2017-04-28 07:00 | NUR ---
MS RN OPENING RECEIVED PATIENT A/XO3 WITH PERIODS OF CONFUSION OR RESPONSES THAT DO NOT HAVE BEARING ON CONVERSATION. PATIENT DENIES PAIN,SOB DIFFICULTY BREATHING AT THIS TIME. SLIGHT SOB WITH ACTIVITY AND GRUNTING WITH MOVEMENT. PATIENT IS TOLERATING ROOM AIR AT THIS TIME STABLE. ALL NEEDS IN REACH, SITTER AT SIDE ORDERED. PATIENT APPEARS STABLE. NO COMPLAINTS NO NEEDS. CALL LIGHT IN REACH, BED LOWERED AND LOCKED, RAILS UPX3 FOR SAFETY AND WILL ROUND Q2H OR LESS PER NEEDS.
[2017-04-28 08:00] VITALS: BP_SYST 82; BP_SYST 90; BP_DIAS 54; BP_DIAS 55
[2017-04-28] MEDS: UREA 10% -AHA 4% CREAM 57 GM TUBE TP SCH ×2 (08:06→16:05)
[2017-04-28] MEDS: BOOST PLUS FOOD-CHOCLATE 237 ML BOX PO SCH ×3 (08:06→16:00)
[2017-04-28] MEDS: LACTOBACILLUS RHAMNOSUS GG 1 EACH CAP.SPRINK PO SCH ×2 (08:06→16:05)
[2017-04-28] MEDS: BUMETANIDE (1 MG) 1 MG TABLET PO SCH (08:06)
[2017-04-28] MEDS: QUETIAPINE FUMARATE 100 MG TABLET PO SCH ×4 (08:06→20:45)
[2017-04-28] MEDS: SULFAMETH/TRIMETH 800/160 MG 1 UDTAB TABLET PO SCH ×2 (08:06→20:45)
[2017-04-28] MEDS: PANTOPRAZOLE 40 MG TABLET.DR PO SCH (08:06)
[2017-04-28] MEDS: CARVEDILOL 3.125 MG TABLET PO SCH ×2 (08:07→21:00)
[2017-04-28 08:15] VITALS: BP 90/55
--- NOTE | 2017-04-28 08:44 | NUR ---
MS RN NOTES CALLED PHARMACY TO HAVE MORE BACTROBAN BROUGHT UP
--- NOTE | 2017-04-28 08:58 | NUR ---
ABHISHEK called Jules in intake at [facility] who informed ABHISHEK they do have a male bed available and to send the clinicals. ABHISHEK faxed clinicals to Jules at .
--- NOTE | 2017-04-28 09:32 | NUR ---
MS RN NOTES PATIENT RESTING WELL NO COMPLICATIONS
--- NOTE | 2017-04-28 09:44 | NUR ---
MS RN NOTES NOTIFIED MD ALEJO PATIENT STILL HAS F.C IN. PER OK TO REMOVE.
--- NOTE | 2017-04-28 10:17 | NUR ---
ms rn notes removed patient bhatia cath no complications. tip intact. urinal provided and riky care completed
[2017-04-28] MEDS: MUPIROCIN OINT 2% 22 GM TUBE SCH ×2 (10:24→20:45)
--- NOTE | 2017-04-28 11:57 | NUR ---
ABHISHEK contacted [facility] and spoke to Margaux in Intake who requested for ABHISHEK to fax clinicals. ABHISHEK faxed clinicals to .
--- NOTE | 2017-04-28 12:00 | NUR ---
MS RN NOTES PATIENT URINATED X2 NO COMPLICATIONS. AMBULATING AROUND FLOOR WITH NO WALKER; STABLE. SITTER AT SIDE
--- NOTE | 2017-04-28 13:51 | NUR ---
ABHISHEK called Jules in intake at [facility] to follow up if they can accept pt. Jules informed ABHISHEK that they do not accept patients on a 5250 hold. ABHISHEK also contacted [facility] and spoke to Malgorzata who informed they have no beds available at this time. ABHISHEK spoke to Dr. Zuñiga, psychiatrist informing him that ABHISHEK is not able to place pt. at a psychiatric hospital due to no beds available and some hospitals not taking pts' on a 5250 hold.
--- NOTE | 2017-04-28 13:58 | NUR ---
ABHISHEK received a call back from Margaux in Intake from [facility] who informed ABHISHEK that they do not have an accepting doctor at this time to accept pt.
[2017-04-28 16:00] VITALS: BP 101/63
--- NOTE | 2017-04-28 18:35 | NUR ---
MS RN CLOSING MD ALEJO AWARE PATIENT IS NOT YET DISCHARGED WE ARE WAITING ON PLACEMENT DUE TO PATIENT CONTINUATION OF HOLD. PATIENT WAS STABLE TODAY AND COOPERATIVE. ALL DUE MEDS GIVEN AND ALL NEEDS MET NO COMPLICATIONS. PATIENT IS CONTINUING TO SCRATCH AT LEGS AND ARMS; PROVIDING LOTIONS PRN. ALL NEEDS IN REACH AND PATIENT STATES NO NEEDS AT THIS TIME. CALL LIGHT IN REACH, BED LOWERED AND LOCKED, RAILS UPX3 FOR SAFETY WITH BED ALARM ON AND SITTER AT SIDE PER ORDER. WILL ENDORSE CARE TO RN FOR ANGUS
[2017-04-28 19:41] VITALS: BP 93/53
[2017-04-28 20:00] VITALS: BP 93/53
[2017-04-29] MEDS: HYDROMORPHONE 1 MG/1 ML DISP.SYRIN IV PRN ×3 (02:50→13:02)
--- NOTE | 2017-04-29 07:41 | NUR ---
RN OPENING NOTES RECEIVED PATIENT IN BED, ASLEEP, HOB ELEVATED, NO SOB OR DISTRESS NOTED. A/O X 3, VERBALLY RESPONSIVE AND ABLE TO MAKE NEEDS KNOWN. IV INTACT AND PATENT. KEPT PATIENT CLEAN AND COMFORTABLE IN BED, CALL LIGHT WITHIN PATIENT REACH. WILL CONTINUE TO MONITOR ACCORDINGLY.
[2017-04-29 08:00] VITALS: BP 101/67
[2017-04-29] MEDS: BOOST PLUS FOOD-CHOCLATE 237 ML BOX PO SCH ×2 (08:39→12:00)
[2017-04-29] MEDS: QUETIAPINE FUMARATE 100 MG TABLET PO SCH ×2 (08:40→13:01)
[2017-04-29] MEDS: BUMETANIDE (1 MG) 1 MG TABLET PO SCH (08:40)
[2017-04-29] MEDS: PANTOPRAZOLE 40 MG TABLET.DR PO SCH (08:41)
[2017-04-29] MEDS: LACTOBACILLUS RHAMNOSUS GG 1 EACH CAP.SPRINK PO SCH (08:41)
[2017-04-29] MEDS: SULFAMETH/TRIMETH 800/160 MG 1 UDTAB TABLET PO SCH (08:41)
[2017-04-29 08:42] VITALS: BP 101/67
[2017-04-29] MEDS: CARVEDILOL 3.125 MG TABLET PO SCH (08:42)
[2017-04-29] MEDS: MUPIROCIN OINT 2% 22 GM TUBE SCH (08:44)
[2017-04-29] MEDS: UREA 10% -AHA 4% CREAM 57 GM TUBE TP SCH (08:44)
--- NOTE | 2017-04-29 10:56 | NUR ---
SW met with pt. bedside to discuss discharge plan. Pt. is alert and oriented x 4. Pt. was sitting upright in his bed when SW met with pt. Pt. was friendly and cooperative with SW during the assessment. Pt. states that he resides in a guest house with his Uncle Sanchez and would like to be discharged there once psychiatrically/ medically cleared. Pt's home address is [address] [place] [address], in [facility]. Pt. informed SW that he didn't intentionally try to overdose on medication. Pt. stated his scrotum was swollen and he was in agonizing pain and took some pain medication that belonged to his uncle Sanchez. Pt. has a history of drug use and has been in treatment before. Pt's [address] discontinued [address] Dr[address] Zuñiga as of today and is medically cleared for discharge. SW gave pt. resources to list of Substance Abuse programs and mental health clinics and urged pt. to follow up. SW gave pt. a pair of pants and T-shirt as well since pt. had no clothing with him. Pt. to be discharged via taxi to [address] [place] [address] in [facility] [id number]. MedSurg cupola chargerNAOMY Pappas was informed of pt's discharge plan. No other social service needs are required at this time. SW is available if needed.
--- NOTE | 2017-04-29 13:25 | NUR ---
RN NOTES PATIENT DO NOT WANT TO LEAVE BECAUSE HE SAID THAT THE PANTS ARE NOT HIS SIZE. JADEN ESCAMILLA, CALL SECURITY TO ESCORT HIM TO THE LOBBY.
--- NOTE | 2017-04-29 13:55 | NUR ---
RN NOTES DISCHARGE INSTRUCTIONS GIVEN TO PATIENT AND ABLE TO UNDERSTAND INSTRUCTIONS AND SIGNED DISCHARGE PAPER AND BELONGINGS LIST. PATIENT REFUSED PICTURES. PATIENT LEFT VIA WHEELCHAIR ACCOMPANIED WITH LIGHTING TECHNICIAN AND CIERRA SIMS IN STABLE CONDITION. NO SOB OR DISTRESS NOTED. VITALS SIGNS CHECKED AND RECORDED. MD AND CHARGE NURSE AWARE.
== END 2017-04-29 14:31 | disposition home or self-care (01) | DRG 812 ==
LOC: ER 14:33 → TELE 16:17 → TELE1 04-12 08:43 → ICUOV 04-12 08:44 → ICU 04-21 17:00 → TELE 04-22 11:28 → MED 04-25 08:47
PROVIDERS: ADMIT Internal Medicine; ATTEND Internal Medicine
PROC: 02HV33Z Insertion of Infusion Device into Superior Vena Cava, Percutaneous Approach (ICD-10-PCS; principal; 2017-04-12)
PROC: B548ZZA Ultrasonography of Superior Vena Cava, Guidance (ICD-10-PCS; principal; 2017-04-12)
DX: T40.2X1A Poisoning by other opioids, accidental (unintentional), initial encounter (principal); I21.4 Non-ST elevation (NSTEMI) myocardial infarction; N17.0 Acute kidney failure with tubular necrosis; J96.02 Acute respiratory failure with hypercapnia; J96.01 Acute respiratory failure with hypoxia; R57.0 Cardiogenic shock; R65.21 Severe sepsis with septic shock; G92 Toxic encephalopathy; A41.9 Sepsis, unspecified organism; D68.9 Coagulation defect, unspecified; J15.6 Pneumonia due to other Gram-negative bacteria; R18.8 Other ascites; M62.82 Rhabdomyolysis; I42.9 Cardiomyopathy, unspecified; E87.1 Hypo-osmolality and hyponatremia; E88.09 Other disorders of plasma-protein metabolism, not elsewhere classified; Y92.89 Other specified places as the place of occurrence of the external cause; D63.8 Anemia in other chronic diseases classified elsewhere; K72.90 Hepatic failure, unspecified without coma; F11.23 Opioid dependence with withdrawal; L03.115 Cellulitis of right lower limb; L03.116 Cellulitis of left lower limb; I42.0 Dilated cardiomyopathy; Z79.82 Long term (current) use of aspirin; D73.1 Hypersplenism; E87.5 Hyperkalemia; F29 Unspecified psychosis not due to a substance or known physiological condition; D50.9 Iron deficiency anemia, unspecified; F15.23 Other stimulant dependence with withdrawal; Z22.322 Carrier or suspected carrier of Methicillin resistant Staphylococcus aureus; I50.21 Acute systolic (congestive) heart failure; N50.89 Other specified disorders of the male genital organs; L73.9 Follicular disorder, unspecified; J98.11 Atelectasis; T43.621A Poisoning by amphetamines, accidental (unintentional), initial encounter; K74.60 Unspecified cirrhosis of liver
CPT/HCPCS: 36415; 36569; 36600; 70450-TC; 71010-TC; 76700-TC; 76870-TC; 80048-TC; 80053-TC; 80061-TC; 80074; 80076-TC; 80202-TC; 80305; 81000-TC; 82105; 82140-TC; 82272-TC; 82550-TC; 82553-TC; 82570-TC; 82728-TC; 82746; 82784; 82803-TC; 82962-TC; 83540-TC; 83605-TC; 83735-TC; 83970; 84100-TC; 84155; 84155-TC; 84165; 84300-TC; 84439-TC; 84443-TC; 84484-TC; 85025-TC; 85045-TC; 85610-TC; 85730-TC; 86334; 87040-TC; 87081-TC; 87086-TC; 87340; 93307-TC; 94799-TC; A4216; A4349; A4606; C1751; G0480; J1120; J1170; J1200; J1250; J1644; J1940; J2060; J2310; J2405; J2543; J2916; J3370; J3430; J3475; J3480; J3490; J7030; J7050; J7060; P9047; Z7610

== ENCOUNTER 2017-08-29 19:50 | Emergency (ER) | payer OTHER ==
[~2017-08-29] VITALS: Ht 177.8 cm; Wt 108.9 kg
[2017-08-29 19:50] VITALS: BP 116/85
[~2017-08-29 19:50] MED LIST: ASPI81TA2 PO; BUME1TAB16 PO; CARV6.25 PO; METO5TAB7 PO; MUPI22OI7; SULF1TAB3 PO
--- NOTE | 2017-08-29 21:00 | NUR ---
PT BIB RA AND [employer]. PT WAS KICKED OUT OF THE UNCLE'S HOUSE AND WOULD NOT LEAVE. 911 WAS CALLED AND PT WAS TAKEN TO ER. PT HAS A LOMAX CATH IN PLACE DIRECTOR SOFTWARE DEVELOPMENT WITHOUT A LEG BAG ATTACHED. PT IS NAKED AND HAS 20G IV IN LAC. PT PULLED OUT IV AND PULLED OFF ALL MONITOR CONNECTIONS. PT IS REFUSING EVERYTHING. DR. RON IS AWARE.
--- NOTE | 2017-08-29 21:11 | NUR ---
LEG BAG ATTACHED TO LOMAX PER MD ORDER.
--- NOTE | 2017-08-29 21:34 | NUR ---
PT REFUSED EKG.
--- NOTE | 2017-08-29 21:57 | NUR ---
Patient does not wish to proceed with medical care recommended by Dr. RON AND BROOKS HANCOCK. Patient given information related to possible complications, up to and including , which could occur as a result of leaving the hospital at this time. Patient verbalizes understanding of risks involved due to leaving against medical advice. Patient has signed AMA form.
--- NOTE | 2017-08-29 22:03 | NUR ---
PT REC'D PAPER SCRUBS AND IS NOW REFUSING TO LEAVE. PT IS ALSO REFUSING ALL HELP.
--- NOTE | 2017-08-29 22:54 | NUR ---
PT LEFT BY [employer]. PT AMBULATED OUT WITH A STEADY GAIT.
== END 2017-08-29 22:57 | disposition left against medical advice (07) ==
LOC: ER 19:51
DX: R06.02 Shortness of breath (principal); Z53.20 Procedure and treatment not carried out because of patient's decision for unspecified reasons; Z79.82 Long term (current) use of aspirin
CPT/HCPCS: A4606; Z7610

== ENCOUNTER 2017-08-29 23:14 | Emergency (ER) | payer OTHER ==
[~2017-08-29] VITALS: Ht 177.8 cm; Wt 99.8 kg
--- NOTE | 2017-08-29 23:54 | NUR ---
PATIENT STATES HE DOESNT WANT TO BE SEEN BY A DOCTOR
--- NOTE | 2017-08-30 00:08 | NUR ---
PATIENT IS REFUSING TO LEAVE [facility] ED
--- NOTE | 2017-08-30 00:20 | NUR ---
OMAR IS WITH PATIENT. PT IS NOW SAYING HE WANT TO BE SEEN BY A DOCTOR. PT REGISTRATION HAS TO BE UNDONE FOR PT TO BE SEEN BY
[2017-08-30 01:20] VITALS: BP 135/79
--- NOTE | 2017-08-30 01:23 | NUR ---
PATIENT LEFT IN CUSTODY BY [employer].
== END 2017-08-30 01:24 ==
LOC: ER 23:14
DX: I50.9 Heart failure, unspecified (principal); Z79.82 Long term (current) use of aspirin; Z53.20 Procedure and treatment not carried out because of patient's decision for unspecified reasons
CPT/HCPCS: A4606; Z7610

== ENCOUNTER 2018-06-07 11:23 | Emergency (ER) | payer OTHER ==
[~2018-06-07] VITALS: Ht 185.4 cm; Wt 89.8 kg
[~2018-06-07 11:23] MED LIST changes: +ASPI-1169 PO; -ASPI81TA2 PO; -BUME1TAB16 PO; +BUME1TAB5 PO
[2018-06-07] MEDS ORDERED: HYDROCODONE/APAP 5/325MG 1 EACH TABLET PO ONE (12:00)
[2018-06-07] MEDS ORDERED: ASPIRIN 325 MG TABLET PO ONE (12:00)
[2018-06-07] MEDS ORDERED: NITROGLYCERIN 0.4 MG/TAB BOTTLE SL ONE (12:00)
[2018-06-07] MEDS ORDERED: ASPIRIN 325 MG TABLET ONE (12:05)
[2018-06-07] MEDS ORDERED: NITROGLYCERIN 0.4 MG/TAB BOTTLE ONE (12:05)
[2018-06-07] MEDS ORDERED: HYDROCODONE/APAP 5/325MG 1 EACH TABLET ONE (12:05)
--- NOTE | 2018-06-07 12:24 | NUR ---
RUSS HOLLEY FROM TRAIN STATION FOR R KNEE PAIN. PT ALSO C/O LT CP " COMES & GOES ", NON RADIATING. PT SEEN & EVAL'D BY DR. JAUREGUI. DENIES SOB, DIZZINESS, N/V, ARM/JAW PAIN @ THIS TIME. EKG DONE, SHOWN TO MD. MARTÍNEZ. NAD NOTED @ THIS TIME & WILL CONT TO MONITOR.
[2018-06-07 12:34] LABS: BASOPHILS # (AUTO) 0.1 /CMM (0.0-0.2); BASOPHILS % (AUTO) 0.5 % (0.0-2.0); EOSINOPHILS % (AUTO) 0.4 % (0.0-6.0); HEMATOCRIT 37 % (39-51); HEMOGLOBIN 12.1 g/dL (13.5-17.5); LYMPHOCYTES # (AUTO) 1.1 /CMM (0.8-4.8); LYMPHOCYTES % (AUTO) 10.6 % (20.0-44.0); MEAN CORPUSCULAR HEMOGLOBIN 27 PG (26.0-33.0); MEAN CORPUSCULAR HGB CONC 33 g/dl (31.0-36.0); MEAN CORPUSCULAR VOLUME 81 fL (80-96); MONOCYTES # (AUTO) 0.7 /CMM (0.1-1.30); MONOCYTES % (AUTO) 6.7 % (2.0-12.0); NEUTROPHILS # (AUTO) 8.9 /CMM (1.8-8.9); NEUTROPHILS % (AUTO) 81.8 % (43.0-81.0); PLATELET COUNT (AUTO) 349 /CMM (150-450); RDW COEFFICIENT OF VARIATION 18.1 (11.5-15.0); RED BLOOD CELL COUNT(AUTO) 4.53 MIL/uL (4.5-6.0); WHITE BLOOD COUNT (AUTO) 10.8 K/uL (4.3-11.0)
[2018-06-07 12:35] LABS: CALCIUM, SERUM 9.3 mg/dL (8.5-10.1); CARBON DIOXIDE 29 mmol/L (21-32); CHLORIDE 98 mmol/L (98-107); GLUCOSE 103 mg/dL (74-106); POTASSIUM 4.4 mmol/L (3.5-5.1); SODIUM SERUM 133 mmol/L (136-145); UREA NITROGEN, BLOOD 21 mg/dL (7-18)
--- NOTE | 2018-06-07 12:42 | NUR ---
DENIES PAIN AT THIS TIME
[2018-06-07 12:44] LABS: TROPONIN I < 0.017 ng/mL (0.00-0.056)
[2018-06-07 12:45] LABS: INR 1.12 (0.85-1.15)
--- NOTE | 2018-06-07 15:15 | NUR ---
Patient discharged to home in stable condition. Written and verbal after care instructions given. Patient verbalizes understanding of instruction.
[2018-06-07 15:16] VITALS: BP 110/57
== END 2018-06-07 15:17 | disposition home or self-care (01) ==
LOC: ER 11:24
DX: S80.01XA Contusion of right knee, initial encounter (principal); I50.9 Heart failure, unspecified; Z59.0 Homelessness; Z79.82 Long term (current) use of aspirin; W18.30XA Fall on same level, unspecified, initial encounter; Y93.89 Activity, other specified; Y92.89 Other specified places as the place of occurrence of the external cause; Y99.8 Other external cause status
CPT/HCPCS: 36415; 71045; 73564; 80048; 84484; 85025; 85730; 93005; 99285; A4606; Z7610

== ENCOUNTER 2018-07-07 05:56 | Emergency (ER) | payer OTHER ==
[~2018-07-07] VITALS: Ht 193 cm; Wt 107.5 kg
[2018-07-07 06:05] VITALS: BP 123/90
== END 2018-07-07 06:22 | disposition home or self-care (01) ==
LOC: ER 05:58
DX: R07.89 Other chest pain (principal); I50.9 Heart failure, unspecified; Z59.0 Homelessness; Z79.82 Long term (current) use of aspirin; Z79.899 Other long term (current) drug therapy
CPT/HCPCS: 93005; 99283; A4606; Z7610

== ENCOUNTER 2018-07-07 21:59 | Emergency (ER) | payer OTHER ==
[2018-07-07 22:18] VITALS: BP 138/76
--- NOTE | 2018-07-07 22:18 | NUR ---
PT TO ER BED 2. BIBRA FROM STREET PT DENIES CP AT THIS TIME, PER EMS BROUGHT FOR CP. PT PLACED ON NURSE ADMINISTRATOR. VSS/RESP EVEN UNLABORED/NAD NOTED/SKIN WARM AND DRY/AFEBRILE/DENIES N-V-D/AOX4. AWAITNG MD CULLEN.
--- NOTE | 2018-07-07 22:26 | NUR ---
EMT AT BEDSIDE FOR EKG.
== END 2018-07-07 23:05 | disposition home or self-care (01) ==
LOC: ER 22:00
DX: Z00.00 Encounter for general adult medical examination without abnormal findings (principal); I50.9 Heart failure, unspecified; Z59.0 Homelessness; Z79.82 Long term (current) use of aspirin; Z79.899 Other long term (current) drug therapy; Z87.2 Personal history of diseases of the skin and subcutaneous tissue
CPT/HCPCS: 93005; 99283; A4606; Z7610

== ENCOUNTER 2018-07-23 22:26 | Inpatient (IN) | payer OTHER ==
[~2018-07-23] VITALS: Ht 190.5 cm; Wt 104.3 kg
--- NOTE | 2018-07-23 22:40 | NUR ---
TO ER BED 7 C/O CHEST PAIN, SOB SINCE "4:30PM" AFTER PLAYING BASKETBALL. AA/OX4. SPEAKING FULL SENTENCES. NON PRODUCTIVE COUGHT. SKIN PINK, WARM, DRY. O2 SAT 99% ON ROOM AIR. MOVES ALL EXTREMITIES WELL. NAD. VSS. STABLE CONDITION. WILL CONTINUE TO MONITOR.
[2018-07-24] VITALS (7 sets, daily range): BP systolic 97–132; BP diastolic 61–91
[2018-07-24] MEDS ORDERED: ASPIRIN 325 MG TABLET PO ONE
[2018-07-24] MEDS ORDERED: ASPIRIN 325 MG TABLET ONE (00:11)
[2018-07-24 00:13] LABS: BASOPHILS # (AUTO) 0.1 /CMM (0.0-0.2); BASOPHILS % (AUTO) 0.9 % (0.0-2.0); EOSINOPHILS % (AUTO) 2.7 % (0.0-6.0); HEMATOCRIT 37 % (39-51); HEMOGLOBIN 11.6 g/dL (13.5-17.5); LYMPHOCYTES # (AUTO) 1.2 /CMM (0.8-4.8); LYMPHOCYTES % (AUTO) 18.3 % (20.0-44.0); MEAN CORPUSCULAR HGB CONC 31 g/dl (31.0-36.0); MEAN CORPUSCULAR VOLUME 86 fL (80-96); MONOCYTES # (AUTO) 0.7 /CMM (0.1-1.30); MONOCYTES % (AUTO) 9.8 % (2.0-12.0); NEUTROPHILS # (AUTO) 4.6 /CMM (1.8-8.9); NEUTROPHILS % (AUTO) 68.3 % (43.0-81.0); PLATELET COUNT (AUTO) 271 /CMM (150-450); RDW COEFFICIENT OF VARIATION 21.4 (11.5-15.0); RED BLOOD CELL COUNT(AUTO) 4.36 MIL/uL (4.5-6.0); WHITE BLOOD COUNT (AUTO) 6.8 K/uL (4.3-11.0)
[2018-07-24 00:28] LABS: INR 1.15 (0.87-1.13)
[2018-07-24 00:32] LABS: CALCIUM, SERUM 8.6 mg/dL (8.5-10.1); CREATININE 0.9 mg/dL (0.6-1.3); POTASSIUM 4.4 mmol/L (3.5-5.1); TROPONIN I 0.023 ng/mL (0.00-0.056)
[2018-07-24] MEDS ORDERED: FUROSEMIDE 40 MG/4 ML VIAL ONE (01:00)
[2018-07-24] MEDS ORDERED: FUROSEMIDE 40 MG/4 ML VIAL IV ONE (01:00)
--- NOTE | 2018-07-24 01:08 | NUR ---
Patient is resting comfortably in bed with eyes closed. Easily aroused. VSS
--- NOTE | 2018-07-24 01:25 | NUR ---
REPORT GIVEN TO ADEOLA VERDE
[2018-07-24] MEDS ORDERED: ONDANSETRON HCL/PF 4 MG/2 ML VIAL IVP PRN (01:30)
[2018-07-24] MEDS ORDERED: Z GUARD REMEDY 2 OZ OINT TP PRN (01:30)
[2018-07-24] MEDS ORDERED: MAGNESIUM HYDROXIDE 30 ML UDC PO PRN (01:30)
[2018-07-24] MEDS ORDERED: ACETAMINOPHEN 325 MG TABLET PO PRN (01:30)
[2018-07-24] MEDS ORDERED: MORPHINE SULFATE INJ 2 MG/ML DISP.SYRIN IV PRN (01:30)
[2018-07-24] MEDS ORDERED: ZOLPIDEM TARTRATE 5 MG TABLET PO PRN (01:30)
[2018-07-24] MEDS ORDERED: MAG HYDROX/AL HYDROX/SIMETH 30 ML UDC PO PRN (01:30)
--- NOTE | 2018-07-24 02:01 | NUR ---
PT TRANSPORTED TO TELE UNIT WITH STABLE CONDITION. VSS. NAD. VIA ACLS PROTOCOL.
--- NOTE | 2018-07-24 02:15 | NUR ---
WAX BLENDER ADMISSION NOTES, 48 YO ADMITTED FROM ER TRANSPORTED VIA STRETCHER RECEIVED BY CHARGE NURSE, UNDER MEDICAL CARE OF DR GREWAL, WITH ADMITTED DIAGNOSES OF CHF EXACERBATION, H/O DRUG ABUSE, ANXIETY, BLE CELLULITIS, A/O X4 ABLE TO VERBALIZED NEEDS AND CONCERNS, BREATHING EVEN AND UNLABORED, NO ACUTE DISTRESS NOTED AT THIS TIME, ON 4LPM VIA NC WITH O2 SATURATION LEVEL OF 96%, HR 99, 132/72, 97.5, SINUS RHYTHM IN THE TELE MONITOR AT THIS TIME, ALL NEEDS PROVIDED AND MEDS WILL ADMINISTERED ORDERED, CALL LIGHT W/I REACH, WILL CONTINUE TO MONITOR CLOSELY.
[2018-07-24] MEDS: ALBUTEROL FS 2.5 MG/3 ML VIAL.NEB NEB SCH ×4 (02:46→19:49)
--- NOTE | 2018-07-24 06:50 | NUR ---
TREATING MACHINE OPERATOR CLOSING NOTES, PATIENT IN BED A/O X4 ABLE TO VERBALIZED NEEDS AND CONCERNS, BREATHING EVEN AND UNLABORED, NO ACUTE DISTRESS NOTED AT THIS TIME, ON 3LPM VIA NC WITH O2 SATURATION LEVEL SINUS RHYTHM IN THE TELE MONITOR AT THIS TIME, ALL NEEDS PROVIDED, SO CHANGE IN CONDITION DURING THE SHIFT, CALL LIGHT W/I REACH, WILL ENDORSE CONTINUITY OF CARE TO ONCOMING NURSE.
--- NOTE | 2018-07-24 07:00 | NUR ---
GALLEY HAND INITIAL NOTES PT IN BED ASLEEP BUT AROUSABLE. ON TELE SR 93. NOT COMPLAINING OF PAIN OR SOB. PT STATES: "I'M FINE, JUST FEED ME AND I'LL LEAVE YOU ALONE". SAFETY PRECAUTIONS IN PLACE. CALL LIGHT IN REACH. WILL CONT TO MONITOR.
[2018-07-24] MEDS ORDERED: BUMETANIDE (1 MG) 1 MG TABLET PO SCH (09:00)
[2018-07-24] MEDS: ENOXAPARIN SODIUM 40 MG/0.4 ML DISP.SYRIN SQ SCH ×2 (09:00→09:12)
[2018-07-24] MEDS: CARVEDILOL 6.25 MG TABLET PO SCH ×2 (09:11→17:00)
[2018-07-24] MEDS: ASPIRIN 81 MG TAB.CHEW PO SCH (09:12)
[2018-07-24] MEDS: MUPIROCIN OINT 2% 22 GM TUBE SCH ×2 (09:13→20:09)
--- NOTE | 2018-07-24 10:41 | NUR ---
WOOD PREPARATION SUPERVISOR NOTES PT REFUSED TO WEAR TELEBOX AND NOT COOPERATING WITH INSTRUCTIONS. DR ZHU IS AWARE.
[2018-07-24] MEDS: FUROSEMIDE 40 MG/4 ML VIAL IV SCH ×3 (11:30→20:08)
--- NOTE | 2018-07-24 14:57 | NUR ---
Social service consult requested by JOANN Pollard for homelessness. Pt. is a 48 year old male who was admitted to [facility] for heart failure. SW attempted to meet with pt. however pt. was asleep. SW woke pt. up but pt. requested for SW to come back later. SW to assess at a later time prior to discharge.
--- NOTE | 2018-07-24 19:15 | NUR ---
M/S RN NOTES PT ENDORSED TO PM NURSE FOR ANGUS. PT IS SITTING ON SIDE OF BED. NO SOB. NO PAIN. SAFETY PRECAUTIONS IN PLACE. CALL LIGHT IN REACH. ALL NEEDS ATTENDED TO.
--- NOTE | 2018-07-24 19:30 | NUR ---
RN M/S NOTE PATIENT IS AOX4, SPEECH CLEAR, ABLE TO MAKE NEEDS KNOWN, DENIES ANY PAIN, NO S/SX OF RESPIRATORY OR CARDIAC DISTRESS, ON ROOM AIR, DECLINED USE OF O2 VIA NC, DENIES ANY CARDIAC OR RESPIRATORY DISTRESS, SKIN IS DRY, RIGHT HAND 18G SL, PATENT FLUSHING WELL, SAFETY MAINTAINED AT ALL TIMES, CALL LIGHT WITHIN REACH, BED IN LOW LOCKED POSITION, WILL CONTINUE TO MONITOR FOR ANY CHANGES.
[2018-07-25] MEDS: ALBUTEROL FS 2.5 MG/3 ML VIAL.NEB NEB SCH ×4 (01:02→19:30)
[2018-07-25 04:00] VITALS: BP_SYST 110; BP_SYST 114; BP_DIAS 68; BP_DIAS 86
--- NOTE | 2018-07-25 07:30 | NUR ---
RECEIVED PT IN BED NAKED. ASKED PT TO PUT GOWN ON, PT REFUSED BUT COVERED HIMSELF WITH A BLANKET. NO DISTRESS NOTED, BERTHING UNLABELED AND EVEN. IV TON R HAND 18 G INTACT AND PATENT FLUSHING WELL.SAFETY PRECAUTIONS IN PLACE,CALL LIGHT WITHIN REACH. WILL CONTINUE TO MONITOR.
[2018-07-25 08:00] VITALS: BP 104/69
[2018-07-25] MEDS: ENOXAPARIN SODIUM 40 MG/0.4 ML DISP.SYRIN SQ SCH (09:00)
[2018-07-25] MEDS: CARVEDILOL 6.25 MG TABLET PO SCH ×2 (09:00→17:00)
[2018-07-25] MEDS: ASPIRIN 81 MG TAB.CHEW PO SCH (09:35)
[2018-07-25] MEDS: FUROSEMIDE 40 MG/4 ML VIAL IV SCH ×3 (09:43→18:41)
[2018-07-25] MEDS: MUPIROCIN OINT 2% 22 GM TUBE SCH ×2 (09:44→21:57)
[2018-07-25] MEDS ORDERED: POTASSIUM CHLORIDE 20 MEQ TAB.PRT.SR PO SCH (10:00)
--- NOTE | 2018-07-25 10:39 | NUR ---
ABHISHEK met with pt. bedside along with two nursing students to assess pt. Per pt's RN, pt. tends to expose himself and refuses to wear the hospital gown. Pt. continues to ask for food every hour. Pt. had a sheet covering himself appropriately. Pt. did not provide any eye contact during the assessment and had his eyes closed the entire time. Pt. mostly answered "yes" and "no" to the questions that were asked and did not elaborate. ABHISHEK is familiar with pt. from a previous admission in March 2017 when pt. was on a 5150 hold. Pt. is alert and oriented x 3. Pt. has pressured speech, but overall intact association. Pt. appears agitated at times when answering. Pt. states he is homeless. SW offered pt. homeless long-term placement and pt. accepted. SW to link pt. up to [facility] once pt is medically cleared for discharge. Pt. has a history of opioid and amphetamine abuse. Pt. is not forthcoming of his current drug use. Pt. denies suicidal and homicidal ideations and visual/auditory hallucinations at this time. Pt. denies any psychiatric diagnosis as well. SW to find long-term placement and offer homeless resources once pt. is medically cleared. ABHISHEK updated pt' RN and JOANN JENNY Colon regarding pt's discharge plan.
--- NOTE | 2018-07-25 10:40 | NUR ---
ABHISHEK IN PT ROOM WITH 2 NURSING STUDENTS .
--- NOTE | 2018-07-25 11:00 | NUR ---
PT ON LASIX , PT REFUSED TO USE URINAL TO MEASURE OUTPUT. EDUCATED ABOUT IMPORTANCE OF INPUT /OUTPUT MEASURE WHILE ON LASIX . PT REFUSED.
[2018-07-25 16:00] VITALS: BP 98/55
--- NOTE | 2018-07-25 18:42 | NUR ---
HELD COREG , PT'S BP IS 98/55.
--- NOTE | 2018-07-25 19:21 | NUR ---
PT IN BED, A/O X4 .NO DISTRESS OR COMPLAIN OF PEIN AT THIS MOMENT. ALL NEEDS ANTICIPATED. SAFETY PRECAUTIONS IN PLACE, CALL LIGHT WITH IN REACH. WILL ENDORSE TO NEXT SHIFT FOR ANGUS. POSSIBLE D[facility]C [facility]OMORROW [facility].
--- NOTE | 2018-07-25 19:45 | NUR ---
RN MS NOTES, PATIENT IN BED A/O X4 ABLE TO VERBALIZED NEEDS AND CONCERNS, BREATHING EVEN AND UNLABORED, NO ACUTE DISTRESS NOTED AT THIS TIME, ON RA AT THIS TIME, WITH OPTIMAL O2 SATURATION LEVEL, PIV LINE IN RIGHT HANG PATENT AND INTACT, ALL NEEDS PROVIDED, ASKING FOR FOOD AT THIS TIME, SNACK PROVIDED, CALL LIGHT W/I REACH, WILLCONTINUE TO MONITOR CLOSELY.
[2018-07-25 20:00] VITALS: BP 111/71
[2018-07-25 22:46] LABS: BASOPHILS % (AUTO) 0.8 % (0.0-2.0); EOSINOPHILS % (AUTO) 2.5 % (0.0-6.0); HEMATOCRIT 36 % (39-51); HEMOGLOBIN 11.3 g/dL (13.5-17.5); LYMPHOCYTES # (AUTO) 1.3 /CMM (0.8-4.8); LYMPHOCYTES % (AUTO) 25.5 % (20.0-44.0); MEAN CORPUSCULAR HGB CONC 31 g/dl (31.0-36.0); MEAN CORPUSCULAR VOLUME 85 fL (80-96); MONOCYTES # (AUTO) 0.8 /CMM (0.1-1.30); MONOCYTES % (AUTO) 15.4 % (2.0-12.0); NEUTROPHILS # (AUTO) 2.9 /CMM (1.8-8.9); NEUTROPHILS % (AUTO) 55.8 % (43.0-81.0); PLATELET COUNT (AUTO) 250 /CMM (150-450); RDW COEFFICIENT OF VARIATION 20.7 (11.5-15.0); RED BLOOD CELL COUNT(AUTO) 4.23 MIL/uL (4.5-6.0); WHITE BLOOD COUNT (AUTO) 5.2 K/uL (4.3-11.0)
[2018-07-25 23:03] LABS: ALBUMIN 2.7 g/dL (3.4-5.0); BILIRUBIN,TOTAL 1.8 mg/dL (0.2-1.0); CALCIUM, SERUM 8.6 mg/dL (8.5-10.1); CREATININE 1.1 mg/dL (0.6-1.3); MAGNESIUM 1.6 mg/dL (1.8-2.4); PHOSPHORUS 3.8 mg/dL (2.5-4.9); POTASSIUM 3.6 mmol/L (3.5-5.1); TOTAL PROTEIN, SERUM 7.4 g/dL (6.4-8.2)
[2018-07-25 23:05] LABS: TROPONIN I 0.018 ng/mL (0.00-0.056)
[2018-07-26] MEDS: ALBUTEROL FS 2.5 MG/3 ML VIAL.NEB NEB SCH ×5 (01:30→23:59)
[2018-07-26 04:00] VITALS: BP 116/71
--- NOTE | 2018-07-26 07:00 | NUR ---
RN MS CLOSING NOTES, PATIENT IN BED SLEEPING AT THIS TIME, BREATHING EVEN AND UNLABORED, NO ACUTE DISTRESS NOTED AT THIS TIME, ON RA AT THIS TIME, WITH OPTIMAL O2 SATURATION LEVEL, PIV LINE IN RIGHT HANG PATENT AND INTACT, ALL NEEDS PROVIDED, ASKING FOR FOOD MULTIPLE TIMES DURING THE NIGHT, SNACKS PROVIDED, CALL LIGHT W/I REACH, STABLE DURING THE NIGHT, WILL ENDORSE CONTINUITY OF CARE TO ONCOMING NURSE.
--- NOTE | 2018-07-26 07:54 | NUR ---
RN JOANN/MED SURG OPENING NOTES RECEIVED PATIENT ASLEEP IN BED. NO SIGHS OR SYMPTOMS OF RESPIRATORY DISTRESS OR ACUTE PAIN. BED IN LOW POSITION SAFETY PRECAUSTIONS IN PLACE. POSSIBLE DISCHARGE TO HALF-WAY WILL F/U WITH WORD PROCESSING SPECIALIST. CALL LIGHT WITHIN REACH
[2018-07-26 08:00] VITALS: BP 113/80
[2018-07-26] MEDS: ENOXAPARIN SODIUM 40 MG/0.4 ML DISP.SYRIN SQ SCH (08:49)
[2018-07-26] MEDS: CARVEDILOL 6.25 MG TABLET PO SCH ×2 (08:49→16:30)
[2018-07-26] MEDS: ASPIRIN 81 MG TAB.CHEW PO SCH (08:49)
[2018-07-26] MEDS: MUPIROCIN OINT 2% 22 GM TUBE SCH ×2 (08:50→21:00)
[2018-07-26] MEDS: FUROSEMIDE 40 MG/4 ML VIAL IV SCH ×2 (10:37→14:29)
[2018-07-26] MEDS: POTASSIUM CHLORIDE 20 MEQ TAB.PRT.SR PO SCH ×4 (10:37→12:16)
--- NOTE | 2018-07-26 11:00 | NUR ---
RN JOANN NOTES ATTEMPTED TO ADMINISTER NEW ORDERS OF IVPB AND IVP WHEN NOTICED PATIENT HAD PULLED OUT IV ACCESS. NEW ACCESS IN LEFT FOREARM 20 GAUGE PATENT AND FLUIDS ADMINISTERED. NO REDNESS OR COOL TO TOUCH . PATIENT TOLERATED WELL
[2018-07-26] MEDS: Magnesium 1GM/D5W 100ML PREMIX 100 ML IV SCH ×2 (11:12→12:50)
--- NOTE | 2018-07-26 11:15 | NUR ---
JOANN RN NOTES RADHA WING MAILER MACHINE OPERATOR FROM [facility] CALLED WHILE PATIENT WAS SLEEPING. TO CALL FREDDY @ [phone] [phone] PATIENT SLEEPING AT TIME OF CALL MESSAGE GIVEN
--- NOTE | 2018-07-26 12:00 | NUR ---
RN JOANN NOTES PATIENT MED SCHEDULE OFF D/T PATIENT REMOVING IV FROM HAND CONTINUOUSLY. MD AWARE RESCHEDULED DOSE TO GET 3 DOSES
--- NOTE | 2018-07-26 15:07 | NUR ---
JOANN RN NOTES PATIENT REMOVED IV FOR SECOND TIME .T/O FROM DR DAVILA FOR LASIX 40 MG IVP D/C CHANGED TO 80 MG LASIX PO ONCE. PATIENT CONTINUES TO WALK ROOM AND HALLS NAKED AND WANTING TO LEAVE AMA AT TIMES TO GET FOOD . WILL CONTINUE TO MONITOR FOR AND ENSURE SAFETY PRECAUTIONS IN PLACE
[2018-07-26] MEDS ORDERED: FUROSEMIDE 80 MG TABLET PO ONE (15:30)
[2018-07-26 16:00] VITALS: BP 115/85
[2018-07-26 16:09] VITALS: BP 115/85
[2018-07-26] MEDS ORDERED: POTASSIUM CHLORIDE 20 MEQ TAB.PRT.SR PO SCH (17:00)
--- NOTE | 2018-07-26 19:33 | NUR ---
VP EMERGING MEDIA NOTES PATIENT WALKING AROUND IN ROOM NAKED . REPORT ENDORSED TO NOC NURSE.
[2018-07-26 20:00] VITALS: BP 94/61
--- NOTE | 2018-07-26 20:00 | NUR ---
JOANN RN OPENING NOTES RECEIVED PATIENT ASLEEP IN BED. PATIENT IS ALERT/ ORIENTED X4. NO IV LINE NOTED. PATIENT ASKED FOR FOOD. NO SIGHS OR SYMPTOMS OF RESPIRATORY DISTRESS OR SOB AT THIS TIME. BED IN LOW AND LOCKED POSITION, SAFETY PRECAUTIONS IN PLACE, CALL LIGHT WITHIN REACH .WILL CONT. TO MONITOR.
--- NOTE | 2018-07-26 21:01 | NUR ---
PATIENT'S SPO2 IS 89, 90 ON RA AND PATIENT REFUSED O2 ADMINISTRATION VIA NC. PATIENT DOESN'T HAVE IV LINE AND WAS OFFERED TO START NEW IV LINE AND PATIENT REFUSED NEW IV LINE START FOR NOW.
[2018-07-27 04:00] VITALS: BP 117/55
[2018-07-27 06:40] LABS: BASOPHILS # (AUTO) 0.1 /CMM (0.0-0.2); BASOPHILS % (AUTO) 0.9 % (0.0-2.0); EOSINOPHILS % (AUTO) 2.8 % (0.0-6.0); HEMATOCRIT 39 % (39-51); HEMOGLOBIN 12.4 g/dL (13.5-17.5); LYMPHOCYTES # (AUTO) 1.5 /CMM (0.8-4.8); LYMPHOCYTES % (AUTO) 22.6 % (20.0-44.0); MEAN CORPUSCULAR HGB CONC 32 g/dl (31.0-36.0); MEAN CORPUSCULAR VOLUME 85 fL (80-96); MONOCYTES # (AUTO) 0.8 /CMM (0.1-1.30); MONOCYTES % (AUTO) 11.4 % (2.0-12.0); NEUTROPHILS # (AUTO) 4.3 /CMM (1.8-8.9); NEUTROPHILS % (AUTO) 62.3 % (43.0-81.0); PLATELET COUNT (AUTO) 268 /CMM (150-450); RDW COEFFICIENT OF VARIATION 21.1 (11.5-15.0); RED BLOOD CELL COUNT(AUTO) 4.59 MIL/uL (4.5-6.0); WHITE BLOOD COUNT (AUTO) 6.8 K/uL (4.3-11.0)
[2018-07-27 06:56] LABS: CALCIUM, SERUM 9.1 mg/dL (8.5-10.1); CREATININE 1.1 mg/dL (0.6-1.3); PHOSPHORUS 4.1 mg/dL (2.5-4.9); POTASSIUM 4.1 mmol/L (3.5-5.1); TOTAL PROTEIN, SERUM 8.2 g/dL (6.4-8.2)
--- NOTE | 2018-07-27 07:29 | NUR ---
MED RN OPENING NOTES RECEIVED REPORT FROM [facility] NURSE OUTSIDE ROOM. OPEN DOOR TO OBSERVE PATIENT SLEEPING IN BED NAKED WITH TV AND LIGHTS ON. NO S/S OF RESPIRATORY DISTRESS OR ACUTE PAIN. IN REVIEWING LABS ALL TRENDING TO NORMAL WILL F/U WITH DR. DAVILA SAFETY MEASURES IN PLACE CALL LIGHT WITHIN REACH.
[2018-07-27] MEDS: ALBUTEROL FS 2.5 MG/3 ML VIAL.NEB NEB SCH ×3 (07:35→19:30)
[2018-07-27 08:00] VITALS: BP 105/74
--- NOTE | 2018-07-27 08:25 | NUR ---
PT REFUSED RESP TX AT THIS TIME. RN AWARE. WILL CONT TO MONITOR Addendum: 07/27/18 at 0826 by LUISA VAUGHAN RT Amended: Links added.
[2018-07-27] MEDS: CARVEDILOL 6.25 MG TABLET PO SCH ×2 (08:36→17:03)
[2018-07-27] MEDS: ASPIRIN 81 MG TAB.CHEW PO SCH (08:36)
[2018-07-27] MEDS: MUPIROCIN OINT 2% 22 GM TUBE SCH ×2 (08:39→21:39)
[2018-07-27] MEDS: ENOXAPARIN SODIUM 40 MG/0.4 ML DISP.SYRIN SQ SCH (08:40)
--- NOTE | 2018-07-27 11:26 | NUR ---
ABHISHEK met with pt. bedside. Pt. is alert and oriented x 4. Pt. is willing to a homeless long-term. ABHISHEK contacted [facility], but there was no response. ABHISHEK also contacted [facility] and there is no answer as well. ABHISHEK contacted [facility] and spoke to the powder mill operator who would not give her name. She informed ABHISHEK that there are only top bunk beds available at this time and pt. will have to climb a 5 flight of stairs. Pt. is not appropriate for the top bunk. SW to continue to try to find a homeless long-term for pt. to go to.
[2018-07-27 12:00] VITALS: BP 95/68
--- NOTE | 2018-07-27 13:13 | NUR ---
TOOL DESIGN DRAFTER NOTES PT SIGNED CONSENT FOR US THORACENTESIS WITNESSED BY SELF AND SOON RN
--- NOTE | 2018-07-27 14:59 | NUR ---
CONTACT LENS EDGE BUFFER PATIENT AGREED TO HAVE PROCEDURE US THORACENTESIS AFTER DINNER. US TECH WILL BE UNAVAILABLE AFTER 1700. IF SO PATIENT CAN EAT AND WILL BE NPO AFTER MIDNIGHT FOR AM PROCEDURE.
[2018-07-27 16:00] VITALS: BP 101/65
--- NOTE | 2018-07-27 19:35 | NUR ---
LAUNDRY AIDE CLOSING NOTES REPORT GIVEN TO ONCOMING NURSE. ENDORSED ALL NEW ORDERS. ANGUS
[2018-07-27 20:00] VITALS: BP 99/53
[2018-07-27] MEDS: HYDROCODONE/APAP 5/325MG 1 EACH TABLET PO PRN (20:57)
[2018-07-28] MEDS: ALBUTEROL FS 2.5 MG/3 ML VIAL.NEB NEB SCH ×4 (01:30→19:48)
[2018-07-28 04:00] VITALS: BP 95/63
[2018-07-28 04:57] VITALS: BP 95/63
--- NOTE | 2018-07-28 07:00 | NUR ---
PT. REFUSED BREATHING TREATMENT THIS MORNING PER RESPIRATORY THERAPIST. PT. IS NOT IN RESPIRATORY DISTRESS.
--- NOTE | 2018-07-28 07:20 | NUR ---
RN OPENING NOTES RECEIVED PT. IN BED A&OX3. PT. WAS YELLING IN THE HALLWAY "WHERE IS BREAKFAST". BREATHING IS UNLABORED ON ROOM AIR. NO S/S OF ACUTE DISTRESS. PT. HAS NO IV ACCESS. BED IS IN LOWEST, AND LOCKED POSITION. 2 SIDE RAILS UP, AND INSTRUCTED PT. TO USE CALL LIGHT FOR ASSISTANCE. ALL NEEDS MET. WILL CONTINUE TO ASSESS AND MONITOR.
[2018-07-28 08:00] VITALS: BP 104/78
[2018-07-28] MEDS: ASPIRIN 81 MG TAB.CHEW PO SCH ×2 (09:00→16:30)
[2018-07-28] MEDS: CARVEDILOL 6.25 MG TABLET PO SCH ×2 (09:00→16:29)
[2018-07-28] MEDS: ENOXAPARIN SODIUM 40 MG/0.4 ML DISP.SYRIN SQ SCH ×2 (09:00→16:33)
--- NOTE | 2018-07-28 09:00 | NUR ---
ASPIRIN, AND LOVENOX WAS HELD DUE TO PT. AWAITING FOR A THORACENTESIS PROCEDURE.
[2018-07-28] MEDS: HYDROCODONE/APAP 5/325MG 1 EACH TABLET PO PRN (09:10)
[2018-07-28] MEDS: MUPIROCIN OINT 2% 22 GM TUBE SCH ×2 (09:11→20:17)
--- NOTE | 2018-07-28 09:17 | NUR ---
on 07/27/18 patient refused thoracentesis, re-attempted on 07/28/18 at 0900 patient refused again.. will call RN in afternoon to check if patient will agree to procedure
--- NOTE | 2018-07-28 09:30 | NUR ---
PT. REFUSED THORACENTESIS PROCEDURE IN FRONT OF BIOMEDICAL INSTRUMENT TECHNICIAN. PT. WAS EXPLAINED THE BENEFITS, AND REFUSED PROCEDURE.
--- NOTE | 2018-07-28 11:30 | NUR ---
PT. REFUSED BREATHING TREATMENT PER RESPIRATORY THERAPIST.
--- NOTE | 2018-07-28 11:36 | NUR ---
ABHISHEK contacted [facility], again but there was no answer. ABHISHEK left a voicemail message requesting a call back. ABHISHEK also contacted [facility] again and there is no answer as well.
[2018-07-28 12:37] VITALS: BP 104/78
--- NOTE | 2018-07-28 14:42 | NUR ---
PT. REFUSED THORACENTESIS SECOND TIME THE TELEPHONE ORDER DISPATCHER OFFERED TO DO THE PROCEDURE. PT. SAID THAT HE WANTS TO DO IT LATER.
--- NOTE | 2018-07-28 14:47 | NUR ---
ATTEMPTED THORACENTESIS FOR THIRD TIME AT 1445 PATIENT HAS REFUSED, NAOMY ALONZO IS AWARE
[2018-07-28 16:00] VITALS: BP 120/82
--- NOTE | 2018-07-28 18:56 | NUR ---
RN CLOSING NOTES PT. IS IN THE RESTROOM ALERT. PT. VERBALIZED HE IS OK. BREATHING ON ROOM AIR, NO S/S OF ACUTE DISTRESS. BED IS IN LOWEST, AND LOCKED POSITION. 2 SIDE RAILS UP. ALL NEED MET. ENDORSED REPORT TO NURSE.
--- NOTE | 2018-07-28 19:50 | NUR ---
MS-1/EXCHANGE CONSULTANT PT NOTED WITH LOW SPO2 SATURATION. RT AND MYSELF ENCOURAGED PT TO WEAR HIS OXYGEN, BUT PT IS REFUSING IT AT THIS TIME. RISKS AND BENEFITS THOROUGHLY EXPLAINED. PT IS BECOMING AGITATED AND HOSTILE TOWARDS OXYGEN THERAPY EDUCATION. WILL CONTINUE TO MONITOR.
[2018-07-28 20:00] VITALS: BP 91/55
[2018-07-29] MEDS: ALBUTEROL FS 2.5 MG/3 ML VIAL.NEB NEB SCH ×3 (00:55→13:05)
[2018-07-29 04:00] VITALS: BP 91/54
[2018-07-29 06:20] LABS: CALCIUM, SERUM 8.5 mg/dL (8.5-10.1); CREATININE 1.1 mg/dL (0.6-1.3)
--- NOTE | 2018-07-29 07:59 | NUR ---
MS RN OPENING NOTES RECEIVED PT FROM NIGHTSHIFT NURSE IN STABLE CONDITION. PT IS A/OX 4. NO SOB OR ACUTE SIGNS OF DISTRESS NOTED. BREATHING EVEN AND UNLABORED. PT SATING AT 90% ON RA, AND REFUSING SUPPLEMENTAL O2. EDUCATION PROVIDED ON RISKS AND BENEFITS. PT CONTINUED TO REFUSE AFTER TEACHING WAS PROVIDED. HE DENIES ANY PAIN AT THIS TIME. NO IV ACCESS NOTED PT IS REFUSING. FURTHER EDUCATION PROVIDED. BED IN LOW LOCKED POSITION, SIDE RAILS UP X2, PORFIRIO LIGHT WITHIN REACH. WILL CONTINUE TO MONITOR
[2018-07-29 08:00] VITALS: BP 105/77
[2018-07-29] MEDS: MUPIROCIN OINT 2% 22 GM TUBE SCH (08:51)
[2018-07-29] MEDS: ASPIRIN 81 MG TAB.CHEW PO SCH (08:51)
[2018-07-29] MEDS: ENOXAPARIN SODIUM 40 MG/0.4 ML DISP.SYRIN SQ SCH (08:58)
[2018-07-29 08:59] VITALS: BP 105/77
[2018-07-29] MEDS: CARVEDILOL 6.25 MG TABLET PO SCH (08:59)
--- NOTE | 2018-07-29 15:19 | NUR ---
MS CONSTRUCTION ENGINEER NOTES PT WAS DISCHARGED FROM FACILITY IN STABLE CONDITION. ALL NEEDS MET DURING SHIFT AND ORDERS CARRIED OUT ACCORDINGLY. ALL DUE MEDS. GIVEN. PRN CARE RENDERED PT WOULD PERMIT. HE REFUSED D/C PHOTOS AT TIME OF D/C. HE WAS GIVEN COPIES OF ALL D/C PAPERWORK AND PERTINENT INFORMATION ALONG WITH A WRITTEN PRESCRIPTION. PT VERBALIZED FULL UNDERSTANDING. HE WAS SAFELY WHEELED TO THE MAIN LOBBY BY THE DIRECTOR RADIO AND L;EFT VIA [facility] TO [facility] WITH ALL BELONGINGS
== END 2018-07-29 15:00 | disposition home or self-care (01) | DRG 194 ==
LOC: ER 22:30 → TELE-TD 07-24 01:23 → TELE1 07-24 03:19 → MEDSG1 07-24 12:41
PROVIDERS: ADMIT Internal Medicine; ATTEND Internal Medicine
DX: I11.0 Hypertensive heart disease with heart failure (principal); I27.20 Pulmonary hypertension, unspecified; J90 Pleural effusion, not elsewhere classified; D50.9 Iron deficiency anemia, unspecified; F17.210 Nicotine dependence, cigarettes, uncomplicated; I42.0 Dilated cardiomyopathy; F41.9 Anxiety disorder, unspecified; I50.23 Acute on chronic systolic (congestive) heart failure; I34.0 Nonrheumatic mitral (valve) insufficiency; I35.1 Nonrheumatic aortic (valve) insufficiency; I25.10 Atherosclerotic heart disease of native coronary artery without angina pectoris; Z59.0 Homelessness
CPT/HCPCS: 36415; 71045-TC; 80048-TC; 80053-TC; 80061-TC; 83735-TC; 83880; 84100-TC; 84484-TC; 85025-TC; 85730-TC; 87081-TC; 93307-TC; 94799-TC; A4606; G0378; J1650; J1940; J3475; J7030; Q2036; Z7610

== ENCOUNTER 2020-02-10 11:00 | Inpatient (IN) | payer OTHER ==
[~2020-02-10] VITALS: Ht 182.9 cm; Wt 103.0 kg
[~2020-02-10 11:00] MED LIST changes: -BUME1TAB5 PO; -METO5TAB7 PO
--- NOTE | 2020-02-10 11:06 | NUR ---
KAHNG RA 839 "Homeless from park Abdominal pain/distention", TO ER BED 12, HOOKED TO BP MONITOR AND POX, CHANGED TO HOSP GOWN, PATIENT AO x 4, BREATHING EVEN AND UNLABORED. AWAITING MD CULLEN.
--- NOTE | 2020-02-10 11:20 | NUR ---
DR MESSINA AT BEDSIDE
[2020-02-10] MEDS ORDERED: ONDANSETRON HCL/PF 4 MG/2 ML VIAL ONE (11:30)
[2020-02-10] MEDS ORDERED: MORPHINE SULFATE INJ 2 MG/ML DISP.SYRIN IV ONE (11:30)
[2020-02-10] MEDS ORDERED: ONDANSETRON HCL/PF 4 MG/2 ML VIAL IVP ONE (11:30)
[2020-02-10] MEDS ORDERED: MORPHINE SULFATE INJ 4 MG/ML DISP.SYRIN ONE (11:30)
[2020-02-10] MEDS ORDERED: IV NS 0.9% 1,000 ML BAG IV ONE (11:30)
[2020-02-10 11:45] LABS: BASOPHILS # (AUTO) 0.1 /CMM (0.0-0.2); BASOPHILS % (AUTO) 1.5 % (0.0-2.0); EOSINOPHILS % (AUTO) 0.7 % (0.0-6.0); HEMATOCRIT 34 % (39-51); HEMOGLOBIN 11.2 g/dL (13.5-17.5); LYMPHOCYTES # (AUTO) 1.7 /CMM (0.8-4.8); LYMPHOCYTES % (AUTO) 26.2 % (20.0-44.0); MEAN CORPUSCULAR HGB CONC 33 g/dl (31.0-36.0); MEAN CORPUSCULAR VOLUME 90 fL (80-96); MONOCYTES # (AUTO) 0.7 /CMM (0.1-1.30); MONOCYTES % (AUTO) 11.5 % (2.0-12.0); NEUTROPHILS # (AUTO) 3.9 /CMM (1.8-8.9); NEUTROPHILS % (AUTO) 60.1 % (43.0-81.0); PLATELET COUNT (AUTO) 172 /CMM (150-450); RED BLOOD CELL COUNT(AUTO) 3.79 MIL/uL (4.5-6.0); WHITE BLOOD COUNT (AUTO) 6.5 K/uL (4.3-11.0)
[2020-02-10 12:00] LABS: ALBUMIN 3.2 g/dL (3.4-5.0); BILIRUBIN,DIRECT 1.8 mg/dL (0.0-0.2); BILIRUBIN,TOTAL 4.7 mg/dL (0.2-1.0); CALCIUM, SERUM 9.2 mg/dL (8.5-10.1); CREATININE 1.1 mg/dL (0.6-1.3); POTASSIUM 4.8 mmol/L (3.5-5.1); TOTAL PROTEIN, SERUM 7.5 g/dL (6.4-8.2)
[2020-02-10 14:09] LABS: APPEARANCE,URINE Turbid (CLEAR); BILIRUBIN,URINE MODERATE (NEGATIVE); BLOOD, URINE Moderate Ery/uL (NEGATIVE); COLOR,URINE Dark (YELLOW); KETONES,URINE Negative (NEGATIVE); LEUKOCYTE ESTERASE ,URINE Trace (NEGATIVE); NITRITE, URINE Negative (NEGATIVE); PH,URINE 5.5 (5.0-8.0); PROTEIN,URINE 100 mg/dl (NEGATIVE); UGLUCOSE Negative (NEGATIVE)
[2020-02-10] MEDS ORDERED: HALOPERIDOL LACTATE INJ 5 MG/ML VIAL ONE (14:18)
[2020-02-10 14:22] LABS: BACTERIA,URINE Few /HPF (None Seen); SQUAMOUS EPITHELIAL CELL,UR Few /HPF (None Seen)
[2020-02-10] MEDS ORDERED: HALOPERIDOL LACTATE INJ 5 MG/ML VIAL IV ONE (14:30)
[2020-02-10] MEDS ORDERED: FUROSEMIDE 40 MG/4 ML VIAL IV ONE (14:30)
[2020-02-10] MEDS ORDERED: BUME2TAB7 PO (14:36)
[2020-02-10] MEDS ORDERED: LISI40TA4 PO (14:36)
[2020-02-10] MEDS ORDERED: METO-357 PO (14:36)
[2020-02-10] MEDS ORDERED: FUROSEMIDE 40 MG/4 ML VIAL ONE (14:43)
--- NOTE | 2020-02-10 15:02 | NUR ---
CHAYO SMITH GAVE AUTH TO ADMIT INPATIENT. [phone].
--- NOTE | 2020-02-10 16:14 | NUR ---
REPORT GIVEN TO WILLIAM OF TELE UNIT
--- NOTE | 2020-02-10 16:14 | NUR ---
EPIC PAGE. DON IS ADMITTING. AWAITING CALL BACK
[2020-02-10] MEDS ORDERED: MAG HYDROX/AL HYDROX/SIMETH 30 ML UDC PO PRN (17:00)
[2020-02-10] MEDS ORDERED: ZOLPIDEM TARTRATE 5 MG TABLET PO PRN (17:00)
[2020-02-10] MEDS ORDERED: MAGNESIUM HYDROXIDE 30 ML UDC PO PRN (17:00)
[2020-02-10] MEDS ORDERED: ONDANSETRON HCL/PF 4 MG/2 ML VIAL IVP PRN (17:00)
[2020-02-10] MEDS ORDERED: ALPRAZOLAM 0.25 MG TABLET PO PRN (17:00)
[2020-02-10] MEDS ORDERED: ACETAMINOPHEN 325 MG TABLET PO PRN (17:00)
--- NOTE | 2020-02-10 17:00 | NUR ---
Patient admitted from ER reported by Jec RN.
--- NOTE | 2020-02-10 18:00 | NUR ---
Tele/RN Closing note Patient in bed, sleeping comfortably, refused lisinopril. No c/o pain or discomfort, skin is warm to touch, kept clean/dry, intact IV site. Respiratory even and unlabored with room air, no sob observed. Call light within reach, will endorse warehouse worker 2nd shift.
[2020-02-10] MEDS: FUROSEMIDE 40 MG/4 ML VIAL IV SCH (18:14)
[2020-02-10] MEDS: LISINOPRIL (20MG) 20 MG TABLET PO SCH (18:15)
--- NOTE | 2020-02-10 19:35 | NUR ---
RETIREMENT PLAN COUNSELOR OPENING NOTES RECEIVED PATIENT IN BED ALERT AND ORIENTED X 2-3 AMBULATORY. VERBALLY RESPONSIVE AND ABLE TO FOLLOW DIRECTIONS. BREATHING REGULAR AND UNLABORED ON ROOM AIR. RIGHT AC G18 IV LINE INTACT AND PATENT, FLUSHING WELL WITH NO BLEEDING OR S/S OF INFILTRATION NOTED. ON CARDIAC MONITORING WITH SINUS TACHYCARDIA AT 108bpm. DENIES ANY SUICIDAL IDEATION AT THIS TIME, NO COMPLAINTS OF PAIN/DISCOMFORT REPORTED. BED LOW AND LOCKED ON SEMI FOWLERS POSITION. CALL LIGHT IN REACH. WILL CONTINUE TO MONITOR.
[2020-02-10 20:00] VITALS: BP 124/69
[2020-02-10 21:28] VITALS: BP 124/69
[2020-02-10 23:56] VITALS: BP 110/72
[2020-02-11] VITALS: BP 110/72
--- NOTE | 2020-02-11 | NUR ---
KITCHEN UTILITY ASSOCIATE NOTES PATIENT REMOVED HIS DATABASE ADMINISTRATION MANAGER AND GOWN, YELLING "I'M NOT FEELING GOOD". DENIES PAIN OR DIFFICULTY OF BREATHING. REFUSED XANAX AND RE-ATTACHING TO DATABASE ADMINISTRATION MANAGER. RISK AND BENEFITS EXPLAINED. YELLED "I DONT WANT ANYTHING, IM OK NOW LEAVE ME ALONE" CHARGE NURSE NOTIFIED. WILL CONTINUE TO MONITOR.
[2020-02-11] MEDS: HYDROCODONE/APAP 5/325MG 1 EACH TABLET PO PRN (03:26)
--- NOTE | 2020-02-11 03:30 | NUR ---
MONOMER RECOVERY SUPERVISOR NOTES COMPLAINED OF 7/10 ABDOMINAL PAIN, NORCO 5/325 GIVEN BY MOUTH. NON-PHARMACOLOGICAL INTERVENTIONS PROVIDED. ENCOURAGED TO BE ATTACHED TO DIRECTOR SALES AND TRADE MARKETING BUT STILL REFUSED, RISK AND BENEFITS EXPLAINED AGAIN. WILL CONTINUE TO MONITOR.
[2020-02-11 04:00] VITALS: BP 110/59
[2020-02-11 05:07] VITALS: BP 110/59
--- NOTE | 2020-02-11 06:20 | NUR ---
COFFEE HOST CLOSING NOTES PATIENT IN BED ALERT AND ORIENTED X 2-3. VERBALLY RESPONSIVE BUT UNCOOPERATIVE AT TIMES. BREATHING REGULAR AND UNLABORED ON ROOM AIR. RIGHT AC G18 IV LINE PATENT AND FLUSHING WELL. NO COMPLAINTS OF PAIN/DISCOMFORT REPORTED AT THIS TIME. BED LOW AND LOCKED ON SEMI FOWLERS POSITION. CALL LIGHT IN REACH. WILL ENDORSE TO MORNING SHIFT FOR ANGUS.
[2020-02-11 06:44] LABS: BASOPHILS # (AUTO) 0.1 /CMM (0.0-0.2); BASOPHILS % (AUTO) 1.1 % (0.0-2.0); EOSINOPHILS % (AUTO) 0.6 % (0.0-6.0); HEMATOCRIT 34 % (39-51); HEMOGLOBIN 11.3 g/dL (13.5-17.5); LYMPHOCYTES # (AUTO) 1.8 /CMM (0.8-4.8); LYMPHOCYTES % (AUTO) 24.3 % (20.0-44.0); MEAN CORPUSCULAR HGB CONC 33 g/dl (31.0-36.0); MEAN CORPUSCULAR VOLUME 90 fL (80-96); MONOCYTES # (AUTO) 0.8 /CMM (0.1-1.30); NEUTROPHILS # (AUTO) 4.6 /CMM (1.8-8.9); PLATELET COUNT (AUTO) 167 /CMM (150-450); RED BLOOD CELL COUNT(AUTO) 3.82 MIL/uL (4.5-6.0); WHITE BLOOD COUNT (AUTO) 7.3 K/uL (4.3-11.0)
[2020-02-11 06:54] LABS: THYROID STIMULATING HORMONE 3.917 uIU/mL (0.358-3.74)
[2020-02-11 07:03] LABS: ALBUMIN 3.2 g/dL (3.4-5.0); BILIRUBIN,TOTAL 6.7 mg/dL (0.2-1.0); CALCIUM, SERUM 8.8 mg/dL (8.5-10.1); CREATININE 1.4 mg/dL (0.6-1.3); MAGNESIUM 1.6 mg/dL (1.8-2.4); PHOSPHORUS 4.1 mg/dL (2.5-4.9); POTASSIUM 4.8 mmol/L (3.5-5.1); TOTAL PROTEIN, SERUM 7.4 g/dL (6.4-8.2)
--- NOTE | 2020-02-11 07:38 | NUR ---
RN NOTES RECEIVED PATIENT IN BED ALERT AND ORIENTED X 2-3 AMBULATORY. VERBALLY RESPONSIVE. NO SIGNS OF DISTRESS NOTED AT THIS TIME. RIGHT AC G18 IV LINE INTACT AND PATENT, FLUSHING WELL WITH NO BLEEDING OR S/S OF INFILTRATION NOTED. STILL REFUSED TO BE ATTACH TO LETTER STAMPING MACHINE OPERATOR. DENIES ANY SUICIDAL IDEATION AT THIS TIME, SAFETY ,MEASURES IN PLACE, BED LOW AND LOCKED ON SEMI FOWLERS POSITION. CALL LIGHT IN REACH. WILL CONTINUE TO MONITOR.
[2020-02-11 08:00] VITALS: BP 104/73
[2020-02-11] MEDS: ASPIRIN 81 MG TAB.CHEW PO SCH (08:30)
[2020-02-11] MEDS: FUROSEMIDE 40 MG/4 ML VIAL IV SCH ×2 (08:30→17:00)
[2020-02-11] MEDS: METOPROLOL SUCCINATE 50 MG TAB.SR.24H PO SCH (09:00)
[2020-02-11] MEDS: Magnesium 1GM/D5W 100ML PREMIX 100 ML IV SCH ×2 (10:16→11:16)
--- NOTE | 2020-02-11 11:30 | NUR ---
RN NOTES PATIENT REFUSED MAGNESIUM REPLACEMENTS, EXPLAINED RISKS AND BENEFITS 3X BUT PATIENT STILL REFUSED, WILL CONTINUE TO MONITOR.
--- NOTE | 2020-02-11 13:00 | NUR ---
RN NOTES PATIENT REFUSED NASAL SWAB TO R/O FOR COVID, PER PATIENT I WILL DO IT TONIGHT, EXPLAINED RISKS AND BENEFITS BUT STILL REFUSED, WILL TRY AGAIN LATER.
--- NOTE | 2020-02-11 17:56 | NUR ---
RN NOTES REFUSED LASIX AND REFUSED NASAL SWAB TO R/O COVID PER PATIENT, "I DON'T NEED IT. CHARGE NURSE MADE AWARE.
--- NOTE | 2020-02-11 18:38 | NUR ---
RN NOTES PATIENT IN BED ALERT AND ORIENTED X 2-3 AMBULATORY. VERBALLY RESPONSIVE. NO SIGNS OF DISTRESS NOTED. RIGHT AC G18 IV LINE INTACT AND PATENT, FLUSHING WELL WITH NO BLEEDING OR S/S OF INFILTRATION NOTED. STILL REFUSED TO BE ATTACH TO FILTER MACHINE OPERATOR. DENIES ANY SUICIDAL IDEATION AT THIS TIME, SAFETY ,MEASURES IN PLACE, BED LOW AND LOCKED ON SEMI FOWLERS POSITION. CALL LIGHT IN REACH. WILL ENDORSE TO PETROPHYSICAL ENGINEER NURSE FOR ANGUS.
--- NOTE | 2020-02-11 19:39 | NUR ---
TELE/RN OPENING NOTES RECEIVED PATIENT IN BED, AWAKE, ALERT X3, ABLE TO VERBALIZE NEEDS AT ALL TIMES, FOOD PROVIDED/SNACKS AND KEPT COMFORTABLE, EDUCATED THE IMPORTANCEC OF COMPLIANCE TO TREATMENT PATIENT REFUSED TO HAVE TELE MONITOR ON PRIOR TO SHIFT REPORTED AND REFUSE TO BE SWAB AND BE TESTED FOR COVID, VERBALIZED UNDERSTANDING AND STATED THAT HE WILL COMPLY , WENT BACK TO SLEEP WILL FOLLOW UP LATER. WILL MONITOR. RECEIVED ENDORSEMENT FROM AM RN FOR ANGUS. PATIENT AMBULATORY BUT REQUIRE CONSTANT MONITORING FOR PATIENT CONSTANTLY SEEK NURSE ASSISTANCE AT ALL TIMES.BUT ABLE TO PROVIDE REEDUCATION OF COOPERATION. PROVIDED PROPER HAND HYGIENE AND PPE.
[2020-02-11 20:00] VITALS: BP 105/73
--- NOTE | 2020-02-11 21:00 | NUR ---
MS/RN NOTES PATIENT AGREED TO HAVE SWAB ON NOSTRILL FOR COVID TESTING.SENT TO LAB.AWAITING FOR RESULT.
--- NOTE | 2020-02-11 22:30 | NUR ---
MS /RN NOTES PATIENT REQUESTED AMBIEN TO HELP HIM SLEEP PRN.MONITORING FOR EFFECTIVENESS. PATIENT W
--- NOTE | 2020-02-11 22:57 | NUR ---
MS/RN NOTES MD MADE AWARE REGARDING DESATURATION EPISODE OF PATIENT , UNABLE TO STAND STILL AND PULSE OXIMETER ON ROOM AIR LOW 70 TO 80, OXYGEN VIA NC GIVEN OF 4LITER, WITH OXYGENATION NOW AT 86 TO 88, MD ORDER TO GET STAT ABG. MD ORDER CARRIED OUT. REPORTED LAST MEDICATION GIVEN BY MOUTH PO AMBIEN.PATIENT NON COMPLIANT DURING THE REST OF THE MORNING SHIFT REPORTED AND NON COMPLIANT TO CARE. PATIENT REPORTED WITH NERVOUSNESS DUE TO COVID RESULT THAT IS PENDING AT THIS TIME.
[2020-02-11 23:30] LABS: ABG BASE EXCESS -5.9 mmol/L; ABG OXYGEN SATURATION 88.4 % (92.0-98.5); ABG PCO2 26.7 mmHg (35.0-45.0); ABG PH 7.424 (7.350-7.450); ABG PO2 60.4 mmHg (75.0-100.0); AaDO2 222.9 mmHg; COHb 0.6 % (0.5-1.5); MetHb 0.4 % (0.0-1.5); O2Hb 87.5 % (94.0-97.0); SITE, ABG Right Radial; VENT MODE, BG Nasal Cannula
--- NOTE | 2020-02-12 00:16 | NUR ---
MS/RN NOTES PATIENT WITH BEHAVIOR CONCERN REQUESTING ATTENTION, SEEKING WITH NEEDS TO AGGRESSIVE BEHAVIOR,WANT TO BE PROVIDED ALL HE WANTED IN CONCERNS OF MORE SNACKS BUT REFUSES TREATMENT, MD AWARE,UNABLE TO EDUCATE THE NEED TO COOPERATE FOR SAFETY AND AVOID PROBLEM WITH HEALTH.
[2020-02-12] MEDS ORDERED: LORAZEPAM INJ 2 MG/ML VIAL IV PRN (00:30)
--- NOTE | 2020-02-12 03:20 | NUR ---
MS/RN NOTES PATIENT NON COMPLIANT TO CARE, PULLING OUT NASAL CANULA CAUSING HIS OXYGENATION LEVEL TO GO DOWN. REFUSES SIMPLE MASK PER MD ORDER SATURATION IS IN 80'S, PREFER TO USE NASAL CANULA OCCASIONALLY.
[2020-02-12 06:17] LABS: BASOPHILS # (AUTO) 0.1 /CMM (0.0-0.2); BASOPHILS % (AUTO) 0.8 % (0.0-2.0); EOSINOPHILS % (AUTO) 1.2 % (0.0-6.0); HEMATOCRIT 35 % (39-51); HEMOGLOBIN 11.3 g/dL (13.5-17.5); LYMPHOCYTES # (AUTO) 1.7 /CMM (0.8-4.8); LYMPHOCYTES % (AUTO) 23.2 % (20.0-44.0); MEAN CORPUSCULAR HGB CONC 32 g/dl (31.0-36.0); MEAN CORPUSCULAR VOLUME 91 fL (80-96); MONOCYTES # (AUTO) 0.8 /CMM (0.1-1.30); MONOCYTES % (AUTO) 10.8 % (2.0-12.0); NEUTROPHILS # (AUTO) 4.6 /CMM (1.8-8.9); PLATELET COUNT (AUTO) 162 /CMM (150-450); RED BLOOD CELL COUNT(AUTO) 3.82 MIL/uL (4.5-6.0); WHITE BLOOD COUNT (AUTO) 7.3 K/uL (4.3-11.0)
[2020-02-12 06:31] LABS: CALCIUM, SERUM 8.9 mg/dL (8.5-10.1); CREATININE 1.2 mg/dL (0.6-1.3); MAGNESIUM 1.6 mg/dL (1.8-2.4); PHOSPHORUS 2.9 mg/dL (2.5-4.9); POTASSIUM 5.1 mmol/L (3.5-5.1)
--- NOTE | 2020-02-12 06:41 | NUR ---
MS/RN CLOSING NOTES PATIENT ALERT ORIENTED, ABLE TO VERBALIZE NEEDS AT ALL TIMES, NON COMPLIANT WITH CARE IN REGARDS TO PROPER FOLLOWING MD ORDER PATIENT REFED TO USE SIMPLE MASK AND REMOVES NASAL CANULA OFTEN THAT CAUSES DESATURATION. MD AWARE WITH ORDER FOR SITTER. PATIENT SCREAMS .VERBALY ABUSIVE AND UNABLE TO FOLLOW SIMPLE INSTRUCTIONS PREFER TO REQUEST FOR MORE JUICES,AND JELLO AND MADE AWARE AND VERBALIZED THAT HE UNDERSTOOD MD ORDER ,NOT IN EXCESS FLUID PER MD REFUSES LASIX,REORIENTED MANY TIMES BUT UNABLE TO TEACH.
--- NOTE | 2020-02-12 08:00 | NUR ---
MS RN OPENING NOTES Received Patient resting in bed. A/O x 3. VS stable with no acute distress. Breathing even and unlabored with SPO2 75%. Patient refused O2 supplement. Explained risks and benefits. Patient strongly refuses and yelling "No! I don't need it!!" 18g PIV on RAC clean, intact, patent and flushing well. Safety precautions in place. Bed locked and set to lowest position with side rails x 1 up. All needs rendered at this time. Call light within reach. Will continue to monitor.
[2020-02-12] MEDS: METOPROLOL SUCCINATE 50 MG TAB.SR.24H PO SCH (09:00)
[2020-02-12] MEDS: FUROSEMIDE 40 MG/4 ML VIAL IV SCH ×2 (09:00→17:07)
[2020-02-12] MEDS: ASPIRIN 81 MG TAB.CHEW PO SCH (10:06)
[2020-02-12] MEDS: HYDROCODONE/APAP 5/325MG 1 EACH TABLET PO PRN ×2 (10:28→15:16)
--- NOTE | 2020-02-12 11:03 | NUR ---
supervisor special services consult requested by MD for homelessness. Per chart review and MD notes, pt is a 49-year-old homeless male with past medical history of CHF, cardiomyopathy (EF=30% on 07/25/19 ), depression, anxiety, IV drug use, edema lower extremities, presented to the emergency department from street via rescue ambulance for evaluation of diffuse abdominal pain. According to the report from the ER, patient stated that abdomen became more swollen over the last several days with associated nonradiating dull diffuse pain that is constant. Patient denied nausea, vomiting, diarrhea, any other associated symptoms. Patient is homeless and IV drug user, suspect noncompliance with medications. Patient was somewhat somnolent after he received a dose of Haldol due to bizarre behavior in the ER. PRODUCT SUPPORT REP consulted with pt's RN Caesar. Per RN, pt is non-complaint, demanding and verbally abusive toward staff. Pt keeps requesting for food and pain medication. In lieu of Covid-19 and pending a Covid result, PRODUCT SUPPORT REP conducted assessment via phone by calling pt's room. PRODUCT SUPPORT REP introduced self, explained the role of the SW and purpose of the call. PRODUCT SUPPORT REP is familiar with the pt. from a previous admission in 2018. Pt is alert and oriented x 3. Pt has pressured speech and seems to be in a hurry to get off the phone. Pt reports he is homeless. Pt states he does not receive GR, food stamps or SSI. Pt declined to answer how he gets his food etc on a daily basis. When asked if he would like [facility] resources at time of discharge, pt stated, "Yes". Pt's medical history states, pt has a history of drug use and is a heroin user. When asked if he is using any drugs or history, pt denies. Pt has a psychiatric diagnosis of Mood Disorder. Pt denies suicidal and homicidal ideations and visual/auditory hallucinations at this time. Pt refused to answer any further questions, and PRODUCT SUPPORT REP stopped the assessment. PRODUCT SUPPORT REP provided active listening, supportive counseling and emotional support. PRODUCT SUPPORT REP to provide pt with list of homeless ch[facility] and homeless packet upon discharge.
[2020-02-12] MEDS: Magnesium 1GM/D5W 100ML PREMIX 100 ML IV SCH ×3 (11:30→13:50)
[2020-02-12] MEDS: ENOXAPARIN SODIUM 40 MG/0.4 ML DISP.SYRIN SQ SCH (11:47)
[2020-02-12] MEDS: MORPHINE SULFATE INJ 2 MG/ML DISP.SYRIN IV PRN ×2 (12:00→17:25)
--- NOTE | 2020-02-12 12:00 | NUR ---
MS RN NOTES Patient refusing Magnesium 1gm IVPB at this time. Explained risks and benefits. Patient stated come back later after lunch.
--- NOTE | 2020-02-12 13:00 | NUR ---
MS RN NOTES Patient refused Magnesium 1gm IVPB due to pain on 18g PIV. Patient states that he wants the IV removed and placed on the left arm. Will continue to monitor.
--- NOTE | 2020-02-12 13:30 | NUR ---
MS RN NOTES Removed 18g PIV on RAC clean and intact. Placed 22g PIV on left forearm clean, intact, patent and flushing well. Magnesium 1gm IVPB infusing at this time. Patient in stable condition. Will continue to monitor.
[2020-02-12 16:00] VITALS: BP 115/70
--- NOTE | 2020-02-12 17:34 | NUR ---
MS RN NOTES Patient pulled out 22g PIV on LFA clean and intact. Patient refusing PIV at this time. Patient otherwise in stable condition. Will continue to monitor.
--- NOTE | 2020-02-12 19:05 | NUR ---
MS RN CLOSING NOTES Patient resting in bed. A/O x 3. VS stable with no acute distress. Breathing even and unlabored with SPO2 78%. Patient refused O2 supplement. Explained risks and benefits. Patient strongly refuses. Patient pulled out PIV and refusing reinsertion. Will endorse to oncoming shift. Safety precautions in place. Bed locked and set to lowest position with side rails x 1 up. All needs rendered at this time. Sitter at bedside. Call light within reach. Will endorse plan of care to oncoming shift.
--- NOTE | 2020-02-12 19:10 | NUR ---
MS RN NOTES Received pt resting in bed. A/O x 3. VS stable with no acute distress. Breathing even and unlabored. pt refuses iv insertion. no complaints of pain at this time. safety measures in place with bed in lowest locked position with side rails up x2. call light within reach. will continue to monitor.
[2020-02-12 20:00] VITALS: BP 107/68
--- NOTE | 2020-02-12 20:00 | NUR ---
MS RN NOTES PT REFUSING CARE. PT REFUSING O2, NASAL CANULA OR MASK. EXPLAINED RISKS AND BENEFITS TO PT, AND PT VERBALIZED UNDERSTANDING. PT STATED THAT "IF ITS NOT COMFORTABLE AND I WONT MESS WITH IT.' PT IS ALSO YELLING LOUD AND SPITTING IN ROOM. EXPLAINED TO PT THAT HE HAD A VOMIT BAG TO SPIT IN ALL THIS TIME AND STOP SPITTING ON THE FLOOR, FURNITURE, AND/OR DRAPES AND FRASER. WILL CONTINUE TO MONITOR.
[2020-02-13 07:17] LABS: BASOPHILS % (AUTO) 0.2 % (0.0-2.0); HEMATOCRIT 38 % (39-51); HEMOGLOBIN 11.6 g/dL (13.5-17.5); LYMPHOCYTES # (AUTO) 1.1 /CMM (0.8-4.8); LYMPHOCYTES % (AUTO) 9.6 % (20.0-44.0); MEAN CORPUSCULAR HGB CONC 30 g/dl (31.0-36.0); MEAN CORPUSCULAR VOLUME 95 fL (80-96); MONOCYTES # (AUTO) 0.7 /CMM (0.1-1.30); MONOCYTES % (AUTO) 6.2 % (2.0-12.0); NEUTROPHILS # (AUTO) 9.3 /CMM (1.8-8.9); PLATELET COUNT (AUTO) 169 /CMM (150-450); RED BLOOD CELL COUNT(AUTO) 4.01 MIL/uL (4.5-6.0)
--- NOTE | 2020-02-13 07:34 | NUR ---
MS RN NOTES pt resting in bed. A/O x 3. VS stable with no acute distress. Breathing even and unlabored throughout shift. pt refuses iv insertion. no complaints of pain at this time. safety measures in place with bed in lowest locked position with side rails up x2. call light within reach. will endorse to oncoming nurse for iram.
--- NOTE | 2020-02-13 07:42 | NUR ---
MS RN OPENING NOTE PATIENT SITTING IN CHAIR WITH 1:1 SITTER PRESENT. PATIENT IN NO ACUTE DISTRESS. PATIENT REFUSING TO HAVE O2 SUPPLEMENTATION BY NASAL CANULA OR MASK. PATIENT YELLS AND STATES "I DONT NEED TO WEAR THAT IM GOOD WITH HOW I AM". EDUCATED RISKS VS BENEFITS. PATIENT CONTINUES TO REFUSE. PATIENT WITHOUT IV ACCESS NOTED. PATIENT REFUSES TO HAVE IV ACCESS. PATIENT BED IS LOCKED AND IN LOWEST POSITION. CALL LIGHT WITHIN REACH. WILL CONTINUE TO MONITOR.
[2020-02-13 08:00] VITALS: BP 126/100
[2020-02-13] MEDS: FUROSEMIDE 40 MG/4 ML VIAL IV SCH (09:00)
[2020-02-13] MEDS ORDERED: SPIRONOLACTONE 25 MG TABLET PO SCH (09:00)
[2020-02-13] MEDS: ASPIRIN 81 MG TAB.CHEW PO SCH (09:21)
[2020-02-13] MEDS: METOPROLOL SUCCINATE 50 MG TAB.SR.24H PO SCH (09:21)
[2020-02-13] MEDS: ENOXAPARIN SODIUM 40 MG/0.4 ML DISP.SYRIN SQ SCH (09:24)
--- NOTE | 2020-02-13 09:26 | NUR ---
MS RN NOTE PATIENT REFUSING IV ACCESS DESPITE RISKS VS BENEFITS. UNABLE TO GIVE LASIX IV 0900, PATIENT REFUSES TO HAVE IV ACCESS FOR MEDICATION.
--- NOTE | 2020-02-13 10:00 | NUR ---
MS RN NOTE DR. WILSON AWARE OF PATIENT NONCOMPLIANCE WITH O2 SUPPLEMENTATION AND COMPLIANCE WITH IV ACCESS.
--- NOTE | 2020-02-13 11:07 | NUR ---
GAMEMASTER provided pt's sitter with Homeless resources and intermediate resources to be given to the pt. since pt. is naked and refusing to cover himself. Homeless patient waiver form has been placed in pt's chart.
[2020-02-13 11:32] LABS: ALBUMIN 3.4 g/dL (3.4-5.0); BILIRUBIN,TOTAL 9.9 mg/dL (0.2-1.0); CALCIUM, SERUM 9.9 mg/dL (8.5-10.1); CREATININE 1.6 mg/dL (0.6-1.3); MAGNESIUM 2.2 mg/dL (1.8-2.4); PHOSPHORUS 5.7 mg/dL (2.5-4.9); POTASSIUM 5.4 mmol/L (3.5-5.1); TOTAL PROTEIN, SERUM 7.9 g/dL (6.4-8.2)
[2020-02-13] MEDS ORDERED: GLUCAGON,HUMAN RECOMBINANT 1 MG/VIAL VIAL IM ONE (12:00)
[2020-02-13] MEDS ORDERED: DEXTROSE 50%-WATER 50 ML DISP.SYRIN ONE (12:28)
[2020-02-13] MEDS ORDERED: DEXTROSE 50%-WATER 50 ML DISP.SYRIN IVP ONE (12:30)
[2020-02-13] MEDS ORDERED: Sodium Chloride 154 MEQ in IV 10% DEXTROSE 1,000 ML IV PRN (13:30)
[2020-02-13] MEDS: METOLAZONE 2.5 MG TABLET PO SCH (14:00)
--- NOTE | 2020-02-13 14:10 | NUR ---
MS RN NOTE REPORTED FROM LAB BLOOD GLUCOSE IS 19 AND CO2 9. PATIENT BLOOD SUGAR IS 17 AT 1200. TRIED TO HAVE IV ACCESS. PATIENT KEPT REFUSING TO HAVE IV ACCESS AND TRYING TO SLAP EMILIANO RN AND CHARGE NURSE BRETT BUSTILLO. GAVE ORANGE JUICE TO PATIENT AND GLUCAGON IM. AND RECHECKED SUGAR AT 1215 AND BLOOD SUGAR WAS 16. PATIENT THEN ALLOWED ME AND CHARGE NURSE TO INSERT IV ACCESS TO RIGHT HAND 24G. PATIENT GIVEN D50 SYRINGE AND RECHECKED BLOOD SUGAR 15 MINS AFTER. AND BLOOD SUGAR IS 51 AT 1245. AT 1300 BLOOD SUGAR IS 67. INFORMED DR. WILSON OF SITUATION WITH BLOOD SUGAR. PER DR. WILSON ORDER FOR D10 IN WATER AT 75ML/HR. PER PHARMACY ORDERED IVF DEXTROSE 10% IS DEXTROSE IN WATER. DR. WILSON AWARE AND OKAY WITH ORDER. CHECKED BLOOD SUGAR AT 1400 AND IS 73 AND PATIENT IS ALERT AND ORIENTED, OPEN EYES, AND FOLLOWS COMMAND. ENCOURAGED PATIENT TO KEEP NC AT 6L ON. PATIENT PUTS IT ON AND THEN REMOVES IT AND GETS AGITATED DESPITE EDUCATION OF RISKS VS BENEFITS. MD AWARE OF CO2 LEVEL 9.
[2020-02-13 14:44] VITALS: BP 107/61
[2020-02-13] MEDS: IV 10% DEXTROSE 1,000 ML IV PRN (14:53)
--- NOTE | 2020-02-13 15:01 | NUR ---
MS RN NOTE PATIENT CURRENT BLOOD SUGAR IS 118. PATIENT IN NO ACUTE DISTRESS. WILL CONTINUE TO MONITOR.
[2020-02-13 16:00] VITALS: BP 129/76
[2020-02-13] MEDS ORDERED: FUROSEMIDE 80 MG TABLET PO SCH (17:00)
[2020-02-13] MEDS: BLOOD SUGAR DIAGNOSTIC 1 EACH STRIP IN SCH (17:45)
--- NOTE | 2020-02-13 18:10 | NUR ---
MS RN NOTE PATIENT BLOOD SUGAR WAS 66 AND RECHECKED IMMEDIATELY IT WAS 65. GAVE PATIENT ORANGE JUICE AND SNACKS AFTER 15 MINS. PATIENT BLOOD SUGAR IS 88 AT THIS TIME. WILL CONTINUE TO MONITOR.
[2020-02-13] MEDS ORDERED: DEXTROSE 50%-WATER 50 ML DISP.SYRIN IV PRN (18:30)
--- NOTE | 2020-02-13 19:01 | NUR ---
MS RN CLOSING NOTE PATIENT IN BED RESTING COMFORTABLY WITH 1:1 SITTER PRESENT. PATIENT IN NO ACUTE DISTRESS. PATIENT REFUSING TO HAVE O2 SUPPLEMENTATION BY NASAL CANULA OR MASK. PATIENT YELLS AND STATES "I DONT WANT OXYGEN GET IT OFF". AFTER MULTIPLE ATTEMPTS ALL SHIFT TO PUT O2 NC 6L ON, PATIENT CONTINUES TO REFUSE AND REMOVES NASAL CANULA. DR. WILSON MADE AWARE, AND AWARE OF PATIENT SATURATING SPO2 IN THE 80'S. NO NEW ORDERS AT THIS TIME. PATIENT REMOVED IV AT END OF SHIFT AND STATED " I DONT WANT AN IV ACCESS I TELL YOU WHEN I SHOULD GET IT AND PROCEEDS TO YELL AT STAFF. EDUCATED RISKS VS BENEFITS. PATIENT CONTINUES TO REFUSE. PATIENT REFUSES TO HAVE IV ACCESS. PATIENT BED IS LOCKED AND IN LOWEST POSITION. CALL LIGHT WITHIN REACH. WILL ENDORSE CARE TO PM SHIFT FOR ANGUS.
--- NOTE | 2020-02-13 19:30 | NUR ---
MS RN PM OPENING NOTE BEDSIDE REPORT RECIEVED FROM EMILIANO MORALEZ. PATIENT IN BED YELLING OUT, "I WANT TO LEAVE." PATIENT ENCOURAGED TO USE OXYGEN. PT STATES "THAT DOESNT WORK FOR ME." WITH 1:1 JUANA MCWILLIAMS AT THE BEDSIDE. PATIENT IN MILD DISTRESS WITH LABORED BREATHING. PATIENT REFUSING TO HAVE O2 SUPPLEMENTATION BY NASAL CANULA OR MASK. PER REPORT DURING DAY SHIFT MULTIPLE ATTEMPTS WERE MADE TO PUT O2 NC 6L ON BUT PATIENT CONTINUES TO REFUSE AND REMOVES NASAL CANULA. PER REPORT PT SATURATING SPO2 IN THE 80'S TRHOUGHOUT THE DAY. EMILIANO MORALEZ WILL ATTEMPT NEW IV INSERTION. PT DOES NOT HAVE IV ACCESS AT THIS TIME. REVIEWED POC WITH PATIENT TO MONITOR BS AND ENCOURAGE OXYGEN USE. PT NEEDS REINFORCEMENT HE JUST GRUNTED AT THE INFORMATION PATIENT BED IS LOCKED AND IN LOWEST POSITION. CALL LIGHT WITHIN REACH. WILL CONTINUE TO MONITOR.
[2020-02-13 20:00] VITALS: BP 90/66
--- NOTE | 2020-02-13 20:30 | NUR ---
patient agitated ativan administered patient was restless and ativan administered at 2014. patient is now more relaxed/sedated. nc applied and oxygen at 5lnc. spo2 at 92% rr of 16 will cont to monitor. ivf reinitiated via new iv acess to left fa 24 gauge with no ss of complications. arm sleeve applied to arm will cont to monitor.
[2020-02-13 21:00] VITALS: BP 90/66
[2020-02-14] VITALS (22 sets, daily range): BP systolic 76–146; BP diastolic 22–108
[2020-02-14] MEDS: BLOOD SUGAR DIAGNOSTIC 1 EACH STRIP IN SCH ×4 (00:15→18:13)
--- NOTE | 2020-02-14 02:01 | NUR ---
pt awoke, assisted to br. hypotensive. pt awake. c/o of having to go potty. patient escorted with unsteady gait to br. patient had bm and urinated. pt is somewhat lethargic. breathing is shallow but at 20. patient assisted back to bed. vital signs taken. pt found to be somewhat hypotensive. ivf reconnected. will cont to monitor. bed alarm active. ashley cui remains at the bedside.
[2020-02-14] MEDS: IV 10% DEXTROSE 1,000 ML IV PRN ×2 (04:48→18:13)
[2020-02-14] MEDS ORDERED: ALBUMIN 25% 12.5 GM/50 ML BOTTLE IV ONE (05:30)
[2020-02-14] MEDS ORDERED: LORAZEPAM INJ 2 MG/ML VIAL IV STA (05:44)
--- NOTE | 2020-02-14 05:45 | NUR ---
PT HYPOTENSIVE, SPO2 LOW IN THE 80'S. HEMODIALYSIS CHARGE NURSE COUNT INCLUDES THE [facility] CONTACTED NEW ORDERS RECIEVED. PATIENT AT 0515 FOUND TO HAVE BP OF 76/55. CONTACTED HEMODIALYSIS CHARGE NURSE COUNT INCLUDES THE [facility]. ASSESSED BS OF PT FOUND TO BE 81 SPO2 FOUND TO BE IN THE 80'S DESPITE BEING ON 5 LNC. PT LETHERGIC SKIN IS MOTTTLED BREATH SOUNDS ARE CLEAR. BREATHING LABORED. PATIENT REPEATEDLY KEEPS REMOVING NC OFF DESPITE LOW SATURATION. PATIENT IS A BIT LETHERGIC AND CONFSUSED AXO2. 0530 HEMODIALYSIS CHARGE NURSE COUNT INCLUDES THE [facility] IN TO SEE PATIENT BP RECHECKED AND FOUND TO BE 126/87 WITH HR OF 107. NEW ORDERS TO PLACE PATIENT ON NON REBREATHER, BILATERAL SOFT WRIST RESTRAINTS. 0630 PT IN BILATERAL SOFT WRIST RESTRAINTS. PT STILL LETHARGIC ON NON REBREATHER MASKE SATURATING AT 92% ON. RR OF 22. NEW ORDER FOR STAT ABG RECIEVED.
[2020-02-14 06:50] LABS: BASOPHILS % (AUTO) 0.2 % (0.0-2.0); EOSINOPHILS % (AUTO) 0.4 % (0.0-6.0); HEMATOCRIT 37 % (39-51); HEMOGLOBIN 11.8 g/dL (13.5-17.5); LYMPHOCYTES # (AUTO) 1.1 /CMM (0.8-4.8); LYMPHOCYTES % (AUTO) 12.3 % (20.0-44.0); MEAN CORPUSCULAR HGB CONC 32 g/dl (31.0-36.0); MEAN CORPUSCULAR VOLUME 93 fL (80-96); MONOCYTES # (AUTO) 0.8 /CMM (0.1-1.30); MONOCYTES % (AUTO) 8.6 % (2.0-12.0); NEUTROPHILS # (AUTO) 7.1 /CMM (1.8-8.9); NEUTROPHILS % (AUTO) 78.5 % (43.0-81.0); PLATELET COUNT (AUTO) 149 /CMM (150-450); RED BLOOD CELL COUNT(AUTO) 3.98 MIL/uL (4.5-6.0)
[2020-02-14 07:19] LABS: ABG BASE EXCESS -8.3 mmol/L; ABG OXYGEN SATURATION 85.6 % (92.0-98.5); ABG PCO2 26.4 mmHg (35.0-45.0); ABG PH 7.379 (7.350-7.450); ABG PO2 56.1 mmHg (75.0-100.0); AaDO2 630.5 mmHg; COHb 0.9 % (0.5-1.5); MetHb 0.3 % (0.0-1.5); O2Hb 84.6 % (94.0-97.0); SITE, ABG Right Radial; VENT MODE, BG NON REBREATHER 100%
--- NOTE | 2020-02-14 07:30 | NUR ---
ABG RESULTS RECIEVED. [facility] CALLED AND DOCTOR CUTTER MACHINE TENDER PAGED, IN BETWEEN SHIFTS SO THEY WILL TRY TO REACH [facility] SHE TOOK CARE OF PATIENT YESTERDAY. CALL BACK NUMBER GIVEN TO ANSWERING SERVICE WILL CALL BACK. .
[2020-02-14 07:34] LABS: CALCIUM, SERUM 9.8 mg/dL (8.5-10.1); CREATININE 1.5 mg/dL (0.6-1.3); MAGNESIUM 2.4 mg/dL (1.8-2.4); PHOSPHORUS 3.7 mg/dL (2.5-4.9); POTASSIUM 5.8 mmol/L (3.5-5.1)
--- NOTE | 2020-02-14 09:00 | NUR ---
RN MS NOTE RECEIVED PT AT COS, FOUND LETHARGIC BUT AROUSABLE, BREATHING LABORED/EVEN, O2SAT 89-92% ON NONREBREATHER AT 15L. ABG RECENTLY DRAWN WITH RT RECOMMENDING HLOC. DR WILSON INFORMED. CONTACTED DR. BARAKAT, RECEIVED REC TO TRANSF ICU ON HIGH FLOW O2. PT TRANSFERRED TO UNIT BED 265 WITH ALL BELONGINGS/CHART.
--- NOTE | 2020-02-14 09:28 | NUR ---
RT NOTE PT WAS ON 100% NON REBREATHER AT 15l.STAT ABG TAKEN AND ANALYZED, GIVEN TO CHARGE NURSE. TRANSPORTED TO ICU AND PLACED ON HIGH FLOW NASAL CANNULA 100%, FLOW 60 PER MD ORDERS. TOLERATE WELL AT THIS TIME. WILL MONITOR CLOSELY. Addendum: 02/14/20 at 0931 by SHEKHAR MITCHELL RT Amended: Links added.
[2020-02-14] MEDS ORDERED: BUMETANIDE INJ 16 MG in IV NS 0.9% 16 ML IV ONE (10:30)
--- NOTE | 2020-02-14 10:30 | NUR ---
RN NOTES RECEIVED PATIENT, AWAKE, AABLE TO ANSWER QUESTION APPROPRIATELY BUT IS LETHARGIC. ON HIGH FLOW OXYGEN AT 90% FIO2 AT 55LPM SATING MID 80 AT THIS TIME. PATIENT DENIES ANY PAIN. SINUS RHYTHM ON THE MONITOR WITH HR ON THE 70S. IV ACCESS ON THE LFA IN PLACE AND FLUSHING WELL. BILATERAL SOFT RESTRAINTS IN PLACE, SITE IS INTACT, NO BREAKDOWN NOTED AT THIS TIME. PATIENT ON HIGH FOWLERS POSITION. WILL CONTINUE TO MONITOR PATIENT ACCORDINGLY
[2020-02-14] MEDS: ASPIRIN 81 MG TAB.CHEW PO SCH (11:15)
[2020-02-14] MEDS: ENOXAPARIN SODIUM 40 MG/0.4 ML DISP.SYRIN SQ SCH (11:15)
[2020-02-14] MEDS: METOLAZONE 2.5 MG TABLET PO SCH (11:15)
--- NOTE | 2020-02-14 13:00 | NUR ---
RN NOTES ENDORSED PATIENT FOR CONTINUITY OF CARE. REPORT GIVEN TO NAOMY CHACON. HANDS OFF.
--- NOTE | 2020-02-14 14:18 | NUR ---
PATIENT BP 87/62. CONTACTED DR WILSON TO NOTIFY HER WITH NEW ORDERS FOR LEVOPHED. WILL CARRY OUT.
[2020-02-14] MEDS ORDERED: NOREPINEPHRINE 32 MG in IV NS 0.9% 218 ML IV PRN (14:30)
--- NOTE | 2020-02-14 14:33 | NUR ---
pt. placed into non rebreather due to mouth breathing on high flow. rn aware on changes. Addendum: 02/14/20 at 1622 by MARISA COLON RT Amended: Links added.
[2020-02-14 15:55] LABS: ABG BASE EXCESS -5.5 mmol/L; ABG OXYGEN SATURATION 95.5 % (92.0-98.5); ABG PCO2 27.7 mmHg (35.0-45.0); ABG PH 7.421 (7.350-7.450); ABG PO2 82.4 mmHg (75.0-100.0); AaDO2 602.9 mmHg; COHb 0.6 % (0.5-1.5); MetHb 0.1 % (0.0-1.5); O2Hb 94.8 % (94.0-97.0); SITE, ABG Right Radial; VENT MODE, BG non rebreather
--- NOTE | 2020-02-14 18:13 | NUR ---
BLOOD SUGAR 136 MG/DL, NO COVERAGE GIVEN DUE TO PATIENT REFUSAL OF DINNER.
--- NOTE | 2020-02-14 19:14 | NUR ---
RN CLOSING NOTES: PATIENT REMAINS IN BED. PATIENT CONTINUES TO BE ON NONREBREATHER, SATING WELL. NO SIGNS OF RESPIRATORY DISTRESS NOTED. NO SIGNS OF ACUTE DISTRESS NOTED. PATIENT CONTINUES TO HAVE BUE SOFT WRIST RESTRAINTS. TELE MONITOR SR 88. SAFETY MEASURES IMPLEMENTED, BED IN LOWEST POSITION, LOCKED, SIDE RAILS UP X2. WILL ENDORSE THE INCOMING NURSE FOR THE CONTINUITY OF CARE.
--- NOTE | 2020-02-14 20:00 | NUR ---
BOOK SEWER NOTE RECEIVED PT A/O X2 AND ABLE TO VERBALIZE SOME NEEDS. NOTED WITH EPISODES OF RESTLESSNESS/ AGITATION AND YELLING. ON NONREBREATHER AND TOLERATING WELL. HOB ELEVATED AND ON ASPIRATION PRECAUTIONS. TELE-SR 90'S. BILATERAL SOFT WRIST RESTRAINTS IN PLACE AND NO DISCOLORATION NOTED WITH PALPABLE RADIAL PULSES. LOMAX CATHETER IN PLACE AND DRAINING BY GRAVITY. BED ALARM ENABLED. WILL MONITOR.
[2020-02-14] MEDS ORDERED: LORAZEPAM INJ 2 MG/ML VIAL IV PRN (23:30)
[2020-02-15] VITALS (24 sets, daily range): BP systolic 90–144; BP diastolic 60–92
--- NOTE | 2020-02-15 | NUR ---
SAFETY AND HEALTH MANAGER NOTE PT VERY AGITATED AND YELLING. ANGEL MORENO CLERICAL ASSOCIATE AT BEDSIDE WITH ORDERS TO GIVE ATIVAN 2MG IVP Q4H PRN FOR AGITATION. ORDERS NOTED AND CARRIED OUT.
[2020-02-15] MEDS: BLOOD SUGAR DIAGNOSTIC 1 EACH STRIP IN SCH ×4 (00:38→18:24)
[2020-02-15 05:05] LABS: BASOPHILS % (AUTO) 0.6 % (0.0-2.0); EOSINOPHILS % (AUTO) 1.6 % (0.0-6.0); HEMATOCRIT 35 % (39-51); HEMOGLOBIN 11.8 g/dL (13.5-17.5); LYMPHOCYTES # (AUTO) 0.5 /CMM (0.8-4.8); LYMPHOCYTES % (AUTO) 9.7 % (20.0-44.0); MEAN CORPUSCULAR HGB CONC 34 g/dl (31.0-36.0); MEAN CORPUSCULAR VOLUME 88 fL (80-96); MONOCYTES # (AUTO) 0.3 /CMM (0.1-1.30); MONOCYTES % (AUTO) 6.6 % (2.0-12.0); NEUTROPHILS # (AUTO) 4.2 /CMM (1.8-8.9); NEUTROPHILS % (AUTO) 81.5 % (43.0-81.0); PLATELET COUNT (AUTO) 129 /CMM (150-450); RED BLOOD CELL COUNT(AUTO) 3.95 MIL/uL (4.5-6.0); WHITE BLOOD COUNT (AUTO) 5.2 K/uL (4.3-11.0)
[2020-02-15 05:41] LABS: ALBUMIN 3.1 g/dL (3.4-5.0); BILIRUBIN,TOTAL 9.8 mg/dL (0.2-1.0); CALCIUM, SERUM 9.1 mg/dL (8.5-10.1); CREATININE 0.9 mg/dL (0.6-1.3); MAGNESIUM 1.7 mg/dL (1.8-2.4); PHOSPHORUS 2.2 mg/dL (2.5-4.9); TOTAL PROTEIN, SERUM 7.4 g/dL (6.4-8.2)
[2020-02-15 05:54] LABS: POTASSIUM 2.8 mmol/L (3.5-5.1)
--- NOTE | 2020-02-15 06:15 | NUR ---
DATA CENTER SOLUTIONS ARCHITECT NOTE NOTIFIED PACK OUT OPERATOR ANGEL MONDRAGON OF CRITICAL VALUE POTASSIUM 2.8 WITH ORDERS TO START D5W + KCL 40 MEQ @75 ML/HR. ORDERS NOTED AND CARRIED OUT.
[2020-02-15] MEDS ORDERED: Potassium Chloride 40 MEQ in IV D5W 1,000 ML IV PRN (06:30)
--- NOTE | 2020-02-15 07:50 | NUR ---
RN OPENING NOTE: RECEIVED PATIENT IN BED THIS MORNING. PATIENT IS LETHARGIC BUT AROUSED BY VIGOROUS STERNAL RUB. PATIENT IS CURRENTLY ON 10L/MIN O2 VIA SIMPLE FACE MASK, SATING WELL, NO SIGNS OF RESPIRATORY DISTRESS NOTED. NO SIGNS OF ACUTE DISTRESS NOTED. PATIENT ON TELE MONITOR, SR IN THE 90S. SHANDRA PICC LINE TRIPLE LUMEN, #24 LFA C/D/I, FLUSHING WELL, NO SIGNS OF COMPLICATIONS NOTED. PATIENT HAS LOMAX, DRAINING CLEAR YELLOW URINE. PATIENT HAS BUE SOFT WRIST RESTRAINTS, ASSESS PER PROTOCOL. SAFETY MEASURES IMPLEMENTED, BED IN LOWEST POSITION, LOCKED, SIDE RAILS UP X2, CALL LIGHT WITHIN REACH. WILL CONTINUE TO MONITOR PATIENT FOR CHANGES.
[2020-02-15] MEDS ORDERED: POTASSIUM PHOSPHATE MM 15 MMOL in IV NS 0.9% 250 ML IV SCH (09:00)
[2020-02-15 09:06] LABS: ABG BASE EXCESS 7.3 mmol/L; ABG PCO2 39.9 mmHg (35.0-45.0); ABG PH 7.507 (7.350-7.450); ABG PO2 154.3 mmHg (75.0-100.0); AaDO2 229.6 mmHg; COHb 1.3 % (0.5-1.5); MetHb 0.4 % (0.0-1.5); O2Hb 97.3 % (94.0-97.0); SITE, ABG Right Radial; VENT MODE, BG SIMPLE MASK
[2020-02-15] MEDS: Magnesium 1GM/D5W 100ML PREMIX 100 ML IV SCH ×2 (09:19→10:41)
[2020-02-15] MEDS: POTASSIUM CHLORIDE 20 MEQ TAB.PRT.SR PO SCH ×4 (09:20→12:21)
[2020-02-15] MEDS: METOLAZONE 2.5 MG TABLET PO SCH (09:20)
[2020-02-15] MEDS: ASPIRIN 81 MG TAB.CHEW PO SCH (09:20)
[2020-02-15] MEDS: ENOXAPARIN SODIUM 40 MG/0.4 ML DISP.SYRIN SQ SCH (09:25)
[2020-02-15] MEDS ORDERED: SPIRONOLACTONE 25 MG TABLET PO SCH (09:30)
[2020-02-15] MEDS ORDERED: BUMETANIDE INJ 4 MG in IV D5W 24 ML IV ONE (09:30)
[2020-02-15] MEDS ORDERED: LORAZEPAM INJ 2 MG/ML VIAL IV PRN (13:00)
[2020-02-15] MEDS: LEVOFLOXACIN (250MG) 250 MG TABLET PO SCH (13:43)
[2020-02-15] MEDS ORDERED: MORPHINE SULFATE INJ 2 MG/ML DISP.SYRIN IV PRN (17:30)
--- NOTE | 2020-02-15 18:51 | NUR ---
PATIENT IS RESTLESS AND KEEPS ON REMOVING EQUIPMENT EVEN WITH SOFT WRIST RESTRAINTS ON. KEEP TRYING TO RE-DIRECT PATIENT BUT UNSUCCESSFUL.
--- NOTE | 2020-02-15 19:15 | NUR ---
RN CLOSING NOTE: PATIENT REMAINS IN BED. NO SIGNS OF RESPIRATORY DISTRESS NOTED. NO SIGNS OF ACUTE DISTRESS NOTED. PATIENT ON TELE MONITOR, SR IN THE 80S. PATIENT HAS BUE SOFT WRIST RESTRAINTS. SAFETY MEASURES IMPLEMENTED, BED IN LOWEST POSITION, LOCKED, SIDE RAILS UP X2, CALL LIGHT WITHIN REACH. ENDORSED TO NAOMY DOMINGUEZ FOR CONTINUITY OF CARE.
--- NOTE | 2020-02-15 19:30 | NUR ---
RN OPENING NOTES: Received pt awake in bed, A&Ox2. On nonrebreather mask at 10L tolerating well. No respiratory distress or SOB noted. On tele monitor showing SR. Has SHANDRA PICC and LFA #24 patent and flushing. Dressings c/d/i. D5W+KCL running at 75cc/hr. On BUE soft wrist restraints. Has bhatia cath in place patent and draining clear yellow urine. Safety measures in place. Will continue to monitor.
--- NOTE | 2020-02-15 21:18 | NUR ---
RN NOTE: Pt is restless and is removing equipment despite having bilateral soft wrist restraints. Redirecting explaining risks and benefits of the mask and oxygen. Unsuccessful. CN Ed aware. RN title supervisor aware, attempting to find 1:1 sitter.
[2020-02-16] VITALS (18 sets, daily range): BP systolic 79–121; BP diastolic 24–93
[2020-02-16] MEDS: BLOOD SUGAR DIAGNOSTIC 1 EACH STRIP IN SCH ×4 (00:03→17:03)
--- NOTE | 2020-02-16 04:38 | NUR ---
RN NOTE: Pt awake, agitated, yelling, attempting to spit at nurse. Dr. Carroll ware, gave order for Ativan 0.5mg IV once. Order noted and carried out.
[2020-02-16] MEDS ORDERED: LORAZEPAM INJ 2 MG/ML VIAL IV ONE (04:40)
--- NOTE | 2020-02-16 04:48 | NUR ---
RN NOTE: Wasted Ativan w/ Damaris Natarajan RN. Threw away vial before scanning in EM[facility]
[2020-02-16 05:55] LABS: BASOPHILS % (AUTO) 0.7 % (0.0-2.0); EOSINOPHILS % (AUTO) 3.1 % (0.0-6.0); HEMATOCRIT 35 % (39-51); HEMOGLOBIN 11.8 g/dL (13.5-17.5); LYMPHOCYTES # (AUTO) 0.5 /CMM (0.8-4.8); LYMPHOCYTES % (AUTO) 17.3 % (20.0-44.0); MEAN CORPUSCULAR HGB CONC 34 g/dl (31.0-36.0); MEAN CORPUSCULAR VOLUME 88 fL (80-96); MONOCYTES # (AUTO) 0.3 /CMM (0.1-1.30); MONOCYTES % (AUTO) 11.3 % (2.0-12.0); NEUTROPHILS % (AUTO) 67.6 % (43.0-81.0); PLATELET COUNT (AUTO) 112 /CMM (150-450); RED BLOOD CELL COUNT(AUTO) 3.95 MIL/uL (4.5-6.0); WHITE BLOOD COUNT (AUTO) 2.9 K/uL (4.3-11.0)
[2020-02-16 06:14] LABS: CALCIUM, SERUM 9.2 mg/dL (8.5-10.1); CREATININE 0.8 mg/dL (0.6-1.3); MAGNESIUM 1.5 mg/dL (1.8-2.4); PHOSPHORUS 2.3 mg/dL (2.5-4.9)
[2020-02-16 06:33] LABS: ALBUMIN 3.1 g/dL (3.4-5.0); BILIRUBIN,DIRECT 4.5 mg/dL (0.0-0.2); BILIRUBIN,TOTAL 9.9 mg/dL (0.2-1.0); TOTAL PROTEIN, SERUM 7.6 g/dL (6.4-8.2)
--- NOTE | 2020-02-16 06:54 | NUR ---
RN NOTE: Received call from lab. Pt's CO2 is 44. Will endorse.
--- NOTE | 2020-02-16 07:03 | NUR ---
RN CLOSING NOTES: Pt resting in bed. On 10L nonrebreather mask, tolerating well. No SOB or respiratory distress noted. No acute changes noted during shift. On tele monitor showing SR. On bilateral soft wrist restraints. All medications given as administered. Safety measures in place. Will endorse to AM nurse for ANGUS.
--- NOTE | 2020-02-16 07:30 | NUR ---
TRAVERTINE INSTALLER NOTES RECEIVED PATIENT IN BED, DROWSY, RESPONDS TO TOUCH, ON 4L O2 NASAL CANULA, NO SOB, NOT IN ANY DISTRESS, SR ON MONITOR, HR 88, NO SIGNS OF PAIN, NPO, SEE NURSING FLOWSHEET FOR SKIN ISSUES, WITH SOFT RESTRAINT BILATERAL WRIST, REMOVED AND CHECKED FOR CIRCULATION THEN EVERY 2 HOURS. REALITY ORIENTATIO DONE, UNABLE TO COMPREHEND, CALL LIGHT WITHIN REACH, SAFETY MEASURES IN PLACE, SR UPX 2, WILL CONT TO MONITOR.
[2020-02-16] MEDS: ENOXAPARIN SODIUM 40 MG/0.4 ML DISP.SYRIN SQ SCH (09:00)
[2020-02-16] MEDS: ASPIRIN 81 MG TAB.CHEW PO SCH (09:00)
--- NOTE | 2020-02-16 09:26 | NUR ---
RN NOTES DR. WILSON NOTIFIED, PATIENT PULLED OUT HIS PICC LINE.
--- NOTE | 2020-02-16 09:30 | NUR ---
RN NOTES PATIENT COMBATIVE, REFUSED ALL MEDICATIONS.
[2020-02-16] MEDS: POTASSIUM CL. PREMIX PERIPHER. 50 ML IV SCH ×4 (10:27→13:50)
[2020-02-16] MEDS: Magnesium 1GM/D5W 100ML PREMIX 100 ML IV SCH ×2 (10:27→11:33)
[2020-02-16] MEDS ORDERED: Sodium Phosphate 15 MMOL in IV NS 0.9% 245 ML IV SCH (11:00)
--- NOTE | 2020-02-16 11:00 | NUR ---
RN NOTES RESTARTED IV ACCESS TO RIGHT AC G 22. GOOD BLOOD RETURN.
--- NOTE | 2020-02-16 14:06 | NUR ---
RN NOTES BS 143 MG/DL, REFUSED INSULIN INJECTION
[2020-02-16] MEDS: LEVOFLOXACIN (250MG) 250 MG TABLET PO SCH (14:11)
[2020-02-16] MEDS ORDERED: diphenhydrAMINE HCL 50 MG/ML VIAL IM PRN (15:00)
[2020-02-16] MEDS ORDERED: HALOPERIDOL LACTATE INJ 5 MG/ML VIAL IM PRN (15:00)
--- NOTE | 2020-02-16 15:36 | NUR ---
NAOMY NOTES NEOSYNEPHRINE ON STANDBY. BP AT 117/73. Addendum: 02/16/20 at 1634 by TWILA SHARMA RN CORRECTION DISREGARD THIS DOCUMENTATION INTENDED FOR ANOTHER PATIENT
--- NOTE | 2020-02-16 17:26 | NUR ---
RN NOTES ACCUCHECK DONE. BS 126 MG/DL. NO INSULIN COVERAGE AT THIS TIME.
--- NOTE | 2020-02-16 17:39 | NUR ---
DOCUMENTATION COORDINATOR NOTES PATIENT TRANSFERRED TO 327-1. REPORT GIVEN TO SAMIRA WANG.
--- NOTE | 2020-02-16 17:41 | NUR ---
filer metal patterns notes Received patient from icu. Patient in bed alert, oriented x2. on soft wrist restraints. Noted yelling. Patient placed on tele. Peripheral iv intact patent. Bed in low locked position. Call light within reach.
--- NOTE | 2020-02-16 19:05 | NUR ---
POWER AND RECOVERY SUPERVISOR NOTES PATIENT IN BED SLEEPING NO SOB OR ACUTE DISTRESS NOTED. ALL DUE MEDICATIONS ADMINISTERED. ALL NEEDS MET. WILL ENDORSE CARE TO PM SHIFT.
--- NOTE | 2020-02-16 19:10 | NUR ---
AUTOMOTIVE SALES PROFESSIONAL NOTES RECEIVED PT IN BED RESTING. PT A/OX2-3 WITH PERIODS OF CONFUSION. RESPIRATIONS EVEN AND UNLABORED WITH NO S/S OF ACUTE DISTRESS OR SOB NOTED. NO COMPLAINTS OF PAIN AT THIS TIME. SAFETY MEASURES IN PLACE WITH BED IN LOWEST LOCKED POSITION WITH SIDE RAILS UP X2. CALL LIGHT WITHIN REACH. WILL CONTINUE TO MONITOR.
[2020-02-17] VITALS (7 sets, daily range): BP systolic 85–104; BP diastolic 48–63
[2020-02-17] MEDS: BLOOD SUGAR DIAGNOSTIC 1 EACH STRIP IN SCH ×5 (01:02→23:09)
[2020-02-17 07:28] LABS: BASOPHILS % (AUTO) 0.7 % (0.0-2.0); EOSINOPHILS % (AUTO) 3.8 % (0.0-6.0); HEMATOCRIT 37 % (39-51); HEMOGLOBIN 12.7 g/dL (13.5-17.5); LYMPHOCYTES # (AUTO) 0.8 /CMM (0.8-4.8); LYMPHOCYTES % (AUTO) 22.6 % (20.0-44.0); MEAN CORPUSCULAR HGB CONC 34 g/dl (31.0-36.0); MEAN CORPUSCULAR VOLUME 88 fL (80-96); MONOCYTES # (AUTO) 0.5 /CMM (0.1-1.30); MONOCYTES % (AUTO) 15.4 % (2.0-12.0); NEUTROPHILS % (AUTO) 57.5 % (43.0-81.0); PLATELET COUNT (AUTO) 141 /CMM (150-450); RED BLOOD CELL COUNT(AUTO) 4.22 MIL/uL (4.5-6.0); WHITE BLOOD COUNT (AUTO) 3.6 K/uL (4.3-11.0)
--- NOTE | 2020-02-17 07:35 | NUR ---
NATUROPATHIC PHYSICIAN NOTES PT IN BED RESTING. PT A/OX2-3 WITH PERIODS OF CONFUSION. RESPIRATIONS EVEN AND UNLABORED WITH NO S/S OF ACUTE DISTRESS OR SOB NOTED THROUGHOUT SHIFT. NO COMPLAINTS OF PAIN AT THIS TIME. SAFETY MEASURES IN PLACE WITH BED IN LOWEST LOCKED POSITION WITH SIDE RAILS UP X2. CALL LIGHT WITHIN REACH. WILL ENDORSE TO ONCOMING NURSE FOR ANGUS.
[2020-02-17 07:38] LABS: ALBUMIN 2.9 g/dL (3.4-5.0); BILIRUBIN,TOTAL 8.2 mg/dL (0.2-1.0); CALCIUM, SERUM 8.5 mg/dL (8.5-10.1); CREATININE 0.9 mg/dL (0.6-1.3); MAGNESIUM 1.9 mg/dL (1.8-2.4); PHOSPHORUS 3.2 mg/dL (2.5-4.9); TOTAL PROTEIN, SERUM 7.1 g/dL (6.4-8.2)
--- NOTE | 2020-02-17 07:54 | NUR ---
RAILROAD SIGNAL TECHNICIAN OPENING NOTES PATIENT IN BED RESTING COMFORTABLY. PATIENT IN NO ACUTE DISTRESS. NO SOB NOTED. PATIENT BREATHING IS EVEN AND UNLABORED. PATIENT ON CARDIAC MONITORING READING SINUS RHYTHM HR 95. PATIENT NOTED WITHOUT BILATERAL WRIST RESTRAINTS. PATIENT WITH 1:1 SITTER AT THIS TIME. BED ALARM IS ON. SAFETY PRECAUTIONS IN PLACE. PATIENT BED IS LOCKED AND IN LOWEST POSITION. CALL LIGHT WITHIN REACH. WILL CONTINUE TO MONITOR.
[2020-02-17] MEDS: ASPIRIN 81 MG TAB.CHEW PO SCH (09:02)
[2020-02-17] MEDS: ENOXAPARIN SODIUM 40 MG/0.4 ML DISP.SYRIN SQ SCH (09:03)
--- NOTE | 2020-02-17 10:00 | NUR ---
MS RN NOTE DR. WILSON MADE AWARE OF PATIENT CO2 LEVEL DOWNTRENDING AT LEVEL 41 TODAY.
[2020-02-17] MEDS: POTASSIUM CHLORIDE 20 MEQ TAB.PRT.SR PO SCH ×3 (11:18→12:52)
--- NOTE | 2020-02-17 11:30 | NUR ---
MS RN NOTE PATIENT BLOOD SUGAR IS 171. PATIENT NOT ON SLIDING SCALE, NO HISTORY OF DM. MONITORING FOR DECREASED BLOOD SUGAR. NO INSULIN NEEDED.
[2020-02-17] MEDS: LEVOFLOXACIN (250MG) 250 MG TABLET PO SCH (12:52)
--- NOTE | 2020-02-17 17:24 | NUR ---
MS RN NOTE PATIENT BLOOD SUGAR IS 143. PATIENT NOT ON SLIDING SCALE, NO HISTORY OF DM. MONITORING FOR DECREASED BLOOD SUGAR. NO INSULIN NEEDED.
--- NOTE | 2020-02-17 18:45 | NUR ---
MS RN CLOSING NOTES PATIENT IN BED RESTING COMFORTABLY. PATIENT IN NO ACUTE DISTRESS. NO SOB NOTED. PATIENT BREATHING IS EVEN AND UNLABORED. PATIENT KEPT CLEAN DRY AND COMFORTABLE THROUGHOUT SHIFT. PATIENT WITH 1:1 SITTER AT THIS TIME. BED ALARM IS ON. SAFETY PRECAUTIONS IN PLACE. PATIENT CONTINUES TO REMOVE NC ON 4L OXYGEN. PATIENT NONCOMPLIANT WITH O2 THERAPY. PATIENT SATURATING 94% SPO2 ON ROOM AIR AT THIS TIME. PATIENT BED IS LOCKED AND IN LOWEST POSITION. CALL LIGHT WITHIN REACH. WILL ENDORSE CARE TO PM SHIFT FOR ANGUS.
--- NOTE | 2020-02-17 20:00 | NUR ---
MS RN OPENING NOTES: PATIENT IN THE ROOM,ASLEEP. NO COMPLAINS OF PAIN OR DISCOMFORT THIS TIME OF ASSESSMENT. WILL ADMINSITER ORDERED MEDICATIONS. SAFETY AND FALL PRECAUTIONS OBSERVED, BED ALARM ON. PATIENT IS NOTED TO HAVE THREE IV SITES. WILL MONITOR PATIENT.
--- NOTE | 2020-02-17 21:15 | NUR ---
MS RN NOTES: PATIENT WOKE UP AND TOLD SPEECH AND LANGUAGE CLINICIAN THAT HE WANTS TO GO TO THE BATHROOM, SPEECH AND LANGUAGE CLINICIAN HELPED PATIENT TO THE BATHROOM. IT IS AT THIS TIME THAT SPEECH AND LANGUAGE CLINICIAN NOTICED THAT THE PATIENT REMOVED HIS IV HEPLOCK FROM THE RIGHT SIDE OF THE ARM. WHEN SPEECH AND LANGUAGE CLINICIAN TOLD PATIENT THAT SHE WILL PUT A GAUZE ON IT, PATIENT REFUSED. WILL CONTINUE TO MONITOR THE SAID SITE.
--- NOTE | 2020-02-18 02:10 | NUR ---
MS RN NOTES: NOTED PATIENT TO BE AWAKE. HE ASKED FOR SOMETHING TO DRINK- PROVIDED THE PATIENT WITH CRANBERRY JUICE AND ORANGE JUICE.AT THIS TIME ANTIQUER NOTICED THE BLOOD ON HIS SHEETS, PATIENT THEN CHECKED AND NOTED THAT HIS RIGHT ELBOW HAS AN ABRASION THAT WAS BLEEDING LITTLE AMOUNT. DRESSED THE SITE WITH GAUZE AND WRAPPED WITH KERLIX. INSTRUCTED PATIENT TO LET THE DRESSING STAY ON.
[2020-02-18] MEDS: BLOOD SUGAR DIAGNOSTIC 1 EACH STRIP IN SCH ×4 (05:12→23:10)
--- NOTE | 2020-02-18 05:54 | NUR ---
MS RN CLOSING NOTES: PATIENT IN THE ROOM, HAS NOTED EPISODES OF WAKING UP DURING THE SHIFT AND ASKING FOR FOOD. BLOOD GLUCOSE LEVELS CHECKED ORDERED. SAFETY AND FALL PRECAUTIONS OBSERVED. BED ALARM ON. LOMAX CATH IN PLACE, PATENT AND DRAINING. BED IN LOWEST LOCKED POSITION. PATIENT HAS AN ABRASION ON HIS RIGHT ELBOW. WRTIER DRESSED IN AT 0210AM, AROUND 0220 AM PATIENT REMOVED THE DRESSING ON HIS OWN. LIMIT SETTING DONE. ATTENDED TO ALL OF PATIENT'S NEEDS. WILL ENDORSE PATIENT TO DAY SHIFT NURSE.
[2020-02-18 08:00] VITALS: BP_SYST 111; BP_SYST 141; BP_DIAS 68
--- NOTE | 2020-02-18 08:00 | NUR ---
rn notes received patient in the room a/o x3, no acute respiratory distress, v/s stable, iv access on right UA midline intact. f/c draining yellow output, patient tolerated breakfast well, distended abdomen, was complaining of abdominal pain 3/. call light within to reach, continued monitoring.
[2020-02-18 08:02] LABS: BASOPHILS % (AUTO) 0.6 % (0.0-2.0); EOSINOPHILS % (AUTO) 4.3 % (0.0-6.0); HEMATOCRIT 36 % (39-51); HEMOGLOBIN 12.3 g/dL (13.5-17.5); LYMPHOCYTES # (AUTO) 1.3 /CMM (0.8-4.8); LYMPHOCYTES % (AUTO) 27.3 % (20.0-44.0); MEAN CORPUSCULAR HGB CONC 34 g/dl (31.0-36.0); MEAN CORPUSCULAR VOLUME 87 fL (80-96); MONOCYTES # (AUTO) 0.8 /CMM (0.1-1.30); MONOCYTES % (AUTO) 16.5 % (2.0-12.0); NEUTROPHILS # (AUTO) 2.4 /CMM (1.8-8.9); NEUTROPHILS % (AUTO) 51.3 % (43.0-81.0); PLATELET COUNT (AUTO) 142 /CMM (150-450); RED BLOOD CELL COUNT(AUTO) 4.17 MIL/uL (4.5-6.0); WHITE BLOOD COUNT (AUTO) 4.7 K/uL (4.3-11.0)
[2020-02-18 08:18] LABS: CALCIUM, SERUM 8.6 mg/dL (8.5-10.1); CREATININE 0.8 mg/dL (0.6-1.3); MAGNESIUM 1.9 mg/dL (1.8-2.4); PHOSPHORUS 1.9 mg/dL (2.5-4.9); POTASSIUM 3.3 mmol/L (3.5-5.1)
[2020-02-18] MEDS: ASPIRIN 81 MG TAB.CHEW PO SCH (09:25)
[2020-02-18] MEDS: ENOXAPARIN SODIUM 40 MG/0.4 ML DISP.SYRIN SQ SCH (09:31)
[2020-02-18] MEDS ORDERED: POTASSIUM PHOSPHATE MM 15 MMOL in IV NS 0.9% 250 ML IV SCH (10:30)
[2020-02-18] MEDS: METOPROLOL SUCCINATE 25 MG TAB.SR.24H PO SCH (10:30)
[2020-02-18] MEDS ORDERED: POTASSIUM CHLORIDE 20 MEQ TAB.PRT.SR PO SCH (11:00)
[2020-02-18] MEDS: SPIRONOLACTONE 25 MG TABLET PO SCH (11:40)
[2020-02-18] MEDS: POTASSIUM PHOSPHATE MM 7.5 MMOL in IV NS 0.9% 100 ML IV SCH ×2 (11:43→14:48)
--- NOTE | 2020-02-18 12:00 | NUR ---
N NOTES BS-119 MG/DL, INFUSING POTASSIUM 34 ML/HR. CALL LIGHT WITHIN TO REACH. CONTINUED MONITORING.
--- NOTE | 2020-02-18 15:15 | NUR ---
CHICKEN CLEANER consulted with human services case manager Suzan and Med Surg CRHelio Elaine. Pt refused to participate with PT today. RN to try again tomorrow. Prior to ICU transfer pt was able to ambulate to the bathroom, however it is unknown if pt can ambulate at this time. CHICKEN CLEANER cannot refer pt to [facility] today due to not knowing if pt is ambulatory. Pt was offered fdc resources and agreed to go to fdc. Homeless resources are placed in pt's chart to provide to him upon discharge. If pt. is ambulatory and alert and oriented x 3/4. [facility] can be [facility] if pt is appropriate for the program. CHICKEN CLEANER updated Director Cassia Pike with aforementioned information. Warm Handoff provided to SW to follow up tomorrow.
[2020-02-18 16:00] VITALS: BP 94/66
--- NOTE | 2020-02-18 16:32 | NUR ---
RN NOTES SEEN PATIENT BY HOSPITALIST Dr STEVE RICHARDSON, PATIENT WILL DISCHARGE , CASE MANAGEMENT WORKING FOR PLACEMENT.
--- NOTE | 2020-02-18 18:00 | NUR ---
RN NOTES REMOVED LOMAX CATHETER PER HOSPITALIST ORDER, GIVEN URINAL. PATIENT FLUID RESTRICTION BECAUSE OF LOW SODIUM, DISTENDED ABDOMEN. MIDLINE RIGHT UA INTACT. REFUSED PAIN, BS-169 MG/DL NO COVERAGE. PATIENT KEEP ASKING FOOD, GIVEN SNACK. PLAN IS DISCHARGE. CALL LIGHT WITHIN TO REACH. ENDORSED ONCOMING NURSE FOLLOW PLAN OF CARE.
--- NOTE | 2020-02-18 19:15 | NUR ---
MSRN SEEN WITHOUT ANY CLOTHES ON, BRP . GAIT STEADY, NONCOMPLIANT ON FLUID INTAKE. NEEDS TO BE REMINDED OF FLUID RESTRICTIONS, NO VERBAL RESPONSE. WANTED FOOD. SAFETY PRECAUTIONS EMPHASIZED, NEEDS TO BE REMINDED FREQUENTLY. CLOSELY WATCHED.
[2020-02-18 20:46] VITALS: BP 95/67
[2020-02-19 07:27] LABS: BASOPHILS # (AUTO) 0.1 /CMM (0.0-0.2); BASOPHILS % (AUTO) 1.1 % (0.0-2.0); EOSINOPHILS % (AUTO) 3.8 % (0.0-6.0); HEMATOCRIT 37 % (39-51); HEMOGLOBIN 12.3 g/dL (13.5-17.5); LYMPHOCYTES # (AUTO) 1.3 /CMM (0.8-4.8); LYMPHOCYTES % (AUTO) 24.7 % (20.0-44.0); MEAN CORPUSCULAR HGB CONC 33 g/dl (31.0-36.0); MEAN CORPUSCULAR VOLUME 87 fL (80-96); MONOCYTES # (AUTO) 0.8 /CMM (0.1-1.30); MONOCYTES % (AUTO) 14.6 % (2.0-12.0); NEUTROPHILS % (AUTO) 55.8 % (43.0-81.0); PLATELET COUNT (AUTO) 140 /CMM (150-450); RED BLOOD CELL COUNT(AUTO) 4.27 MIL/uL (4.5-6.0); WHITE BLOOD COUNT (AUTO) 5.3 K/uL (4.3-11.0)
--- NOTE | 2020-02-19 07:47 | NUR ---
MSRN REMAINS UNCHANGED. ALL MULTIPLE NEEDS ATTENDED, FLUIDS RESTRICTED, PATIENT REMAINS NOMCOMPLIANT.
[2020-02-19 07:51] LABS: CALCIUM, SERUM 8.6 mg/dL (8.5-10.1); CREATININE 0.8 mg/dL (0.6-1.3); MAGNESIUM 1.9 mg/dL (1.8-2.4); PHOSPHORUS 2.3 mg/dL (2.5-4.9)
[2020-02-19] MEDS: BLOOD SUGAR DIAGNOSTIC 1 EACH STRIP IN SCH ×2 (07:51→12:37)
[2020-02-19 08:00] VITALS: BP 92/49
--- NOTE | 2020-02-19 08:00 | NUR ---
RN NOTES RECEIVED PATIENT IN THE BED A/O X3, NO ACUTE RESPIRATORY DISTRESS, V/S TAKEN STABLE, MIDLINE ON RIGHT UPPER ARM INTACT. PATIENT REFUSED SI/HI AT THIS TIME, DISTENDED ABDOMEN, TOLERATED BREAKFAST WELL, BUT STILL ASKING MORE FOOD. PATIENT AMBULATORY REFUSED PAIN. CALL LIGHT WITHIN TO REACH. CONTINUED MONITORING.
[2020-02-19 08:01] VITALS: BP 72/49
[2020-02-19] MEDS: SPIRONOLACTONE 25 MG TABLET PO SCH (08:27)
[2020-02-19] MEDS: ENOXAPARIN SODIUM 40 MG/0.4 ML DISP.SYRIN SQ SCH (08:27)
[2020-02-19] MEDS: METOPROLOL SUCCINATE 25 MG TAB.SR.24H PO SCH (10:30)
[2020-02-19] MEDS: POTASSIUM CHLORIDE 20 MEQ TAB.PRT.SR PO SCH ×2 (10:32→10:49)
[2020-02-19] MEDS ORDERED: K PHOS NEUTRAL 250 MG TABLET PO ONE (11:00)
--- NOTE | 2020-02-19 12:00 | NUR ---
RN NOTES BS-156 MG/DL, PATIENT TOLERATED LUNCH WELL, AMBULATORY SELF CARE. PER HOSPITALIST PATIENT WILL DISCHARGE HOMELESS CORRECTION, PATIENT SIGN HOMELESS WAVIER FORM,AND GIVEN DONATION CLOTHES.
--- NOTE | 2020-02-19 13:30 | NUR ---
SW is picking up with this pt from the original consult requested by for homelessness. Pt is a 50 year old male. SW met with the pt at bedside and the pt stated that he is homeless and "will go anywhere the hospital wants as long as medication is given." SW expressed that the only places that will administer his medications to him would be places that require money and the pt stated that he does not receive SSI. ABHISHEK stated that the only option would be for the pt to go to a homeless long-term and that there are health clinics nearby that he can receive medications for. ABHISHEK attempted to refer the pt to [facility] as an alternative option. ABHISHEK spoke to [place] ([phone]) who stated that the pt already had an assessment because Angelic Parker ([phone]) from [facility] referred him. ABHISHEK called her and left a message. As of right now, pt will be discharged to a homeless long-term called [facility] located at [address] [place] [address]; ([phone]). Pt will be given a taxi to the peanut picker location.
[2020-02-19] MEDS ORDERED: SPIR25TA6 PO (14:32)
[2020-02-19] MEDS ORDERED: POTA10CA43 PO (14:38)
--- NOTE | 2020-02-19 15:40 | NUR ---
Pt states that he needs to go to [facility] first to pick pack worker his medications so the SW printed out the directions from the [facility] to the penitentiary pick pack worker location. Pt may not need those directions because the nurse, Suzanne, is attempting to see if Dr. Pelayo will allow the pt to pick pack worker his medications right next door at [facility].
--- NOTE | 2020-02-19 16:10 | NUR ---
TRAY ROOM WORKER NOTES PATIENT DISCHARGE AT THIS TIME GOING HOMELESS JAIL. PATIENT STABLE, V/S WNL, REFUSED PAIN. MED RECONCILIATION AND DISCHARGE ORDER REVIEWED AND EXPLAINED TO THE PATIENT. PATIENT VERBALIZED UNDERSTANDING. BELONGING WITH THE PATIENT. PRESCRIPTION ELECTRONICALLY SANDED PHARMACY VIA HOSPITALIST. VOUCHER FOR TAXI GIVEN AND DIRECTION TO THE PHARMACY. PATIENT SIGN PAPERWORK, WILL FOLLOW PRIMARY MD. ESCORTED PATIENT TO THE LOBBY FOR SAFETY. PATIENT MEDICAL DEVICE BY TAXI.
[2020-02-19 16:31] VITALS: BP 95/60
== END 2020-02-19 16:38 | disposition home or self-care (01) | DRG 133 ==
LOC: ER 11:03 → TELE 15:57 → MED 02-11 09:36 → ICU 02-14 08:35 → TELE 02-16 18:09 → MED 02-17 11:09
PROVIDERS: ADMIT Nurse Practitioner Acute Care; ATTEND Internal Medicine
PROC: 02HV33Z Insertion of Infusion Device into Superior Vena Cava, Percutaneous Approach (ICD-10-PCS; principal; 2020-02-14)
PROC: B548ZZA Ultrasonography of Superior Vena Cava, Guidance (ICD-10-PCS; principal; 2020-02-14)
PROC: 05H933Z Insertion of Infusion Device into Right Brachial Vein, Percutaneous Approach (ICD-10-PCS; 2020-02-16)
DX: J96.01 Acute respiratory failure with hypoxia (principal); K72.00 Acute and subacute hepatic failure without coma; N17.0 Acute kidney failure with tubular necrosis; I50.23 Acute on chronic systolic (congestive) heart failure; G93.40 Encephalopathy, unspecified; E87.3 Alkalosis; R18.8 Other ascites; D69.6 Thrombocytopenia, unspecified; E83.42 Hypomagnesemia; E87.1 Hypo-osmolality and hyponatremia; J90 Pleural effusion, not elsewhere classified; I42.9 Cardiomyopathy, unspecified; F41.9 Anxiety disorder, unspecified; F32.9 Major depressive disorder, single episode, unspecified; Z59.0 Homelessness; D63.8 Anemia in other chronic diseases classified elsewhere; K74.60 Unspecified cirrhosis of liver; F39 Unspecified mood [affective] disorder; F19.90 Other psychoactive substance use, unspecified, uncomplicated; L03.115 Cellulitis of right lower limb; L03.116 Cellulitis of left lower limb; Z79.899 Other long term (current) drug therapy; Z79.82 Long term (current) use of aspirin; Z91.19 Patient's noncompliance with other medical treatment and regimen; F17.200 Nicotine dependence, unspecified, uncomplicated; E16.2 Hypoglycemia, unspecified; E87.5 Hyperkalemia; K40.20 Bilateral inguinal hernia, without obstruction or gangrene, not specified as recurrent; K42.9 Umbilical hernia without obstruction or gangrene; K80.20 Calculus of gallbladder without cholecystitis without obstruction; E87.6 Hypokalemia
CPT/HCPCS: 36415; 36600; 71045-TC; 76700-TC; 80048-TC; 80053-TC; 80061-TC; 80076-TC; 80305; 81000-TC; 82140-TC; 82803-TC; 82962-TC; 83690-TC; 83735-TC; 83880; 84100-TC; 84439-TC; 84443-TC; 84484-TC; 85025-TC; 85730-TC; 87040-TC; 87081-TC; 93307-TC; 97116-TC; 97530-TC; A4216; A6403; A9563; G0378; J1200; J1610; J1630; J1650; J1940; J2060; J2270; J2405; J3475; J3480; J3490; J7030; J7040; J7050; J7060; J7070; P9047